=== PATIENT | female | born 1930 | race Caucasian/White ===

== ENCOUNTER 2020-07-06 06:38 | Inpatient (IN) | payer OTHER, BC ==
[2020-07-06 06:58] VITALS: BMI 16.9
[2020-07-06] MEDS ORDERED: SODIUM CHLORIDE 500 ML IV STA ×2 (07:29→09:17)
[2020-07-06 08:10] LABS: BASO % 0.1 % (0-2.0); HEMATOCRIT 22.2 % (32.4-45.2); LYMPH % 1.5 % (8-40); MCH 27.1 pg (25.7-33.7); MEAN CELL VOLUME 93.4 fl (80-96); MEAN PLT VOLUME 8.7 fl (7.5-11.1); MONO % 5.6 % (3.8-10.2); NEUT % 92.8 % (42.8-82.8); PLATELET COUNT 324 K/MM3 (134-434); RBC 2.38 M/mm3 (3.60-5.2); RDW 19.7 % (11.6-15.6)
[2020-07-06 08:29] LABS: HEMOGLOBIN 6.4 GM/dL (10.7-15.3)
[2020-07-06 08:33] LABS: INR 0.97 (0.83-1.09); PROTHROMBIN TIME (PATIENT) 11.4 SEC (9.7-13.0)
--- NOTE | 2020-07-06 08:34 | PDOC ---
Documentation entered by Nilda Carlton SCRIBE, acting as scribe for Unruly Hopkins MD. Unruly Hopkins MD: This documentation has been prepared by the Brandt ceja Brenda, SCRIBE, under my direction and personally reviewed by me in its entirety. I confirm that the documentation accurately reflects all work, treatment, procedures, and medical decision making performed by me. History of Present Illness - General Chief Complaint: Shortness of Breath Stated Complaint: DIFFICULTY BREATHING History Source: Patient Exam Limitations: No Limitations - History of Present Illness Initial Comments: 07/06/20 07:16 The patient is an 89 year old female with a significant PMH of CAD, h/x NSTEMI, anemia, asthma, COPD, HLD and HTN who presents to the emergency department for evaluation of difficulty breathing per senior living. Per EMS patient was satting 89% on room air. The patient denies pain, chest pain, headache and dizziness. Denies fever, chills, nausea, vomiting, diarrhea and constipation. Denies dysuria, frequency, urgency and hematuria. Allergies: NKA Social history: No reported hx of tobacco use, alcohol use or illicit drug use. PCP: Cesario Stauffer Past History - Medical History Allergies/Adverse Reactions: Allergies Allergy/AdvReac Type Severity Reaction Status Date / Time No Known Allergies Allergy Verified 07/06/20 06:50 Home Medications: Ambulatory Orders Albuterol 0.083% Nebulizer Nandini [Ventolin 0.083%] 1 neb NEB Q4H PRN 04/25/20 Ascorbic Acid 500 mg PO DAILY 04/25/20 Aspirin [ASA -] 81 mg PO DAILY 04/25/20 Atorvastatin Calcium 40 mg PO DAILY 04/25/20 Cholecalciferol (Vitamin D3) [Vitamin D3] 1,000 unit PO DAILY 04/25/20 Clopidogrel Bisulfate [Clopidogrel] 75 mg PO DAILY 04/25/20 Furosemide [Lasix -] 10 mg PO DAILY 04/25/20 Lisinopril 20 mg PO DAILY 04/25/20 Loratadine 10 mg PO DAILY PRN 04/25/20 Potassium Chloride 10 meq PO DAILY 04/25/20 Sertraline HCl [Zoloft] 75 mg PO DAILY 04/25/20 Albuterol Sulfate Inhaler - [Ventolin HFA Inhaler -] 1 - 2 inh PO Q4H #1 inhaler 05/04/20 Budesonide/Formeterol Fumarate [SYMBICORT 160/4.5mcg -] 1 inh PO BID #1 cannister 05/04/20 Ferrous Sulfate [Feosol] 325 mg PO BID #60 tablet 05/04/20 Metoprolol Succinate [Toprol Xl] 25 mg PO DAILY #30 tab.er.24h 05/04/20 Prednisone See Taper PO DAILY #20 tablet 05/04/20 Anemia: Yes Asthma: Yes Cardiac Disorders: Yes (CAD, h/x NSTEMI) COPD: Yes Dementia: Yes HTN: Yes Hypercholesterolemia: Yes Psychiatric Problems: Yes - Immunization History Td Vaccination: Yes TDAP Vaccination: Yes Immunization Up to Date: Yes - Psycho-Social/Smoking History Smoking History: Unknown if ever smoked Have you smoked in the past 12 months: No Information on smoking cessation initiated: No Review of Systems - Review of Systems Able to Perform ROS?: Yes Comments:: 07/06/20 07:30 CONSTITUTIONAL: No fever, no chills, no fatigue EYES: No visual changes ENT: No ear pain, no sore throat CARDIOVASCULAR: No chest pain, no palpitations RESPIRATORY: No cough, no SOB GI: No abdominal pain, no nausea, no vomiting, no constipation, no diarrhea GENITOURINARY: No dysuria, no frequency, no hematuria MUSKULOSKELETAL: No backpain, no joint pain, no myalgias SKIN: No rash NEURO: No headache *Physical Exam - Vital Signs Last Vital Signs Temp Pulse Resp BP Pulse Ox 99.2 F 107 H 24 H 112/62 100 07/06/20 06:42 07/06/20 06:42 07/06/20 06:42 07/06/20 06:42 07/06/20 06:42 - Physical Exam 07/06/20 07:28 CONSTITUTIONAL: Awake and alert, frail-appearing, follows commands, mildly tachypneic HEAD: Normocephalic; atraumatic EYES: PERRL; EOM intact, Conjunctiva pale ENMT: External appears normal; mm-dry NECK: Supple; non-tender; no cervical lymphadenopathy CARD: Normal S1, S2; 2/6 se murmurs, no rubs, or gallops RESP: Tachypneic, Normal chest excursion with respiration; Decreased breath sounds and rhonchi bilaterally, more pronounced on the right; ABD: Soft, non-distended; non-tender; no palpable organomegaly, no palpable hernias EXT: No edema, lower extremities in flexion contraction, superficial hematoma to the dorsum of the left foot; distal pulses intact SKIN: Warm, dry, no rash NEURO: AOx1. Moving upper extremities symmetrically, follows commands Heart Score/ECG Review - ECG Impressions Comment:: 07/06/20 07:31 Rate: 104 bpm Sinus Tachycardia Marked ST abnormality, possible anterolateral subendocardial injury Abnormal ECG ED Treatment Course - LABORATORY CBC & Chemistry Diagram: 07/06/20 07:30 07/06/20 07:30 Medical Decision Making - Medical Decision Making 07/06/20 08:32 Patient is a frail-appearing 89-year-old female with multiple comorbidities who presents from [facility] for difficulty breathing and hypothermia. In the ER, patient is awake and alert, mildly tachypneic, nontoxic-appearing, with oxygen saturation on room air of 88%, improving to 100 on 10 L via nonrebreather. Decreased breath sounds and rhonchi noted bilaterally, more pronounced on the right. I suspect pneumonia. COVID 19 is also in the differential. Differential diagnosis also includes acute exacerbation of CHF versus COPD. I am unable to administer nebulizer therapy at this time due to risk of COVID-19 aerosolization. Patient does not appear coordinated enough to benefit from albuterol MDI at this time. Will obtain CBC/CMP/blood cultures/lactic acid/chest x-ray. Will administer IV fluids and broad-spectrum antibiotics for nosocomial pneumonia. Will obtain COVID swab. Likely admission. 07/06/20 09:09 Patient reassessed. On 6 L via nasal cannula, patient's O2 saturation is noted to be 94%. CBC reveals leukocytosis of 27,000 with moderate anemia with hemoglobin of 6. Will obtain type and screen. Patient CMP reveals troponin of 1.8. Will consider transfusing 1 unit of packed cells. IV vancomycin and Zosyn have been prescribed. COVID testing is pending. I attempted to contact patient's son, Angelo Cage at both phones listed. Voice message was left. 07/06/20 09:18 Patient is a DNR/DNI. 07/06/20 10:10 Patient resting comfortably. Last blood pressure noted to be 98/51. 07/06/20 10:20 I was able to contact patient's son, Mr. Angelo Cage. He gave verbal consent over the telephone for transfusion of packed cells. He also confirmed DNR/DNI. Will transfuse 2 units. Discharge - Discharge Information Problems reviewed: Yes Clinical Impression/Diagnosis: Pneumonia Qualifiers: Pneumonia type: due to unspecified organism Laterality: bilateral Lung location: unspecified part of lung Qualified Code(s): J18.9 - Pneumonia, unsp ecified organism Anemia Qualifiers: Anemia type: unspecified type Qualified Code(s): D64.9 - Anemia, unspecified Altered mental status Qualifiers: Altered mental status type: unspecified Qualified Code(s): R41.82 - Altered mental status, unspecified Condition: Fair - Admission Yes - Follow up/Referral Referrals: Eh Nassar MD [Primary Care Provider] - - Patient Discharge Instructions - Post Discharge Activity
[2020-07-06 08:36] LABS: ACTIVATED PTT 24.8 SECONDS (25.2-36.5)
[2020-07-06 08:38] LABS: ALBUMIN 2.7 g/dl (3.4-5.0); BILIRUBIN,TOTAL 0.2 mg/dL (0.2-1); BLOOD UREA NITROGEN 16.3 mg/dL (7-18); POTASSIUM 4.7 mmol/L (3.5-5.1); TOT PROT 5.6 g/dl (6.4-8.2)
[2020-07-06] MEDS ORDERED: PIPERACILLIN/TAZOB 3.375 GM 3.375 GM in DEXTROSE 5%-WATER - 50 ML IVPB ONE (08:48)
[2020-07-06] MEDS ORDERED: VANCOMYCIN 1 GM in D5W (PRE-DOCKED) 1,000 MG/250 ML IVPB ONE (08:49)
[2020-07-06] MEDS ORDERED: VANCOMYCIN 1 GRAM (PRE-DOCKED) 1,000 MG/250 ML BAG IVPB ONE (08:53)
[2020-07-06] MEDS ORDERED: PIPERACILLIN/TAZOB 3.375 GM 3.375 GM/50 ML BAG IVPB ONE (08:53)
[2020-07-06 09:31] LABS: ARTERIAL BLD GAS O2 SATURATION 99.1 mmHg (95-98); ARTERIAL BLOOD GAS BASE EXCESS -4.2 mmol/L (-2-2); ARTERIAL BLOOD GAS PO2 174.9 mmHg (80-100); ARTERIAL BLOOD GAS pH 7.355 (7.350-7.450)
[2020-07-06 09:37] LABS: ALLENS TEST POSITIVE
--- NOTE | 2020-07-06 09:47 | PN ---
Teaching Attending Note Name of Resident: Ashley Menjivar ATTENDING PHYSICIAN STATEMENT I saw and evaluated the patient. I reviewed the resident's note and discussed the case with the resident. I agree with the resident's findings and plan as documented. SUBJECTIVE: OBJECTIVE: Vital Signs Temperature 99.2 F 07/06/20 06:42 Pulse Rate 94 H 07/06/20 09:00 Respiratory Rate 19 07/06/20 09:00 Blood Pressure 90/47 L 07/06/20 09:00 O2 Sat by Pulse Oximetry (%) 98 07/06/20 09:00 General: Elderly woman, HEENT mucous membranes moist, no anemia, no jaundice, PERRLA, no nystagmus Neck: No JVD, supple, no bruit, thyroid palpably normal, normal carotid pulsations. Chest: Nontender, CVS: S1-S2 regular no murmur/gallop/rub Abdomen: Nondistended, soft, bowel sounds present. Extremities: No edema., No Calf tenderness, pulses present SENIOR LABEL SPECIALIST: CBC,CMP WBC 27.0 K/mm3 (4.0-10.0) H 07/06/20 07:30 RBC 2.38 M/mm3 (3.60-5.2) L 07/06/20 07:30 Hgb 6.4 GM/dL (10.7-15.3) L* 07/06/20 07:30 Hct 22.2 % (32.4-45.2) L D 07/06/20 07:30 MCV 93.4 fl (80-96) D 07/06/20 07:30 MCH 27.1 pg (25.7-33.7) 07/06/20 07:30 MCHC 29.0 g/dl (32.0-36.0) L 07/06/20 07:30 RDW 19.7 % (11.6-15.6) H 07/06/20 07:30 Plt Count 324 K/MM3 (134-434) D 07/06/20 07:30 MPV 8.7 fl (7.5-11.1) 07/06/20 07:30 Absolute Neuts (auto) 25.0 K/mm3 (1.5-8.0) H 07/06/20 07:30 Neutrophils % 92.8 % (42.8-82.8) H 07/06/20 07:30 Lymphocytes % 1.5 % (8-40) L D 07/06/20 07:30 Monocytes % 5.6 % (3.8-10.2) 07/06/20 07:30 Eosinophils % 0.0 % (0-4.5) 07/06/20 07:30 Basophils % 0.1 % (0-2.0) 07/06/20 07:30 Nucleated RBC % 0 % (0-0) 07/06/20 07:30 Sodium 141 mmol/L (136-145) 07/06/20 07:30 Potassium 4.7 mmol/L (3.5-5.1) 07/06/20 07:30 Chloride 109 mmol/L (98-107) H 07/06/20 07:30 Carbon Dioxide 21 mmol/L (21-32) 07/06/20 07:30 Anion Gap 11 MMOL/L (8-16) 07/06/20 07:30 BUN 16.3 mg/dL (7-18) 07/06/20 07:30 Creatinine 1.0 mg/dL (0.55-1.3) 07/06/20 07:30 Est GFR (CKD-EPI)AfAm 57.84 07/06/20 07:30 Est GFR (CKD-EPI)NonAf 49.91 07/06/20 07:30 Random Glucose 197 mg/dL (74-106) H 07/06/20 07:30 Lactic Acid 3.9 mmol/L (0.4-2.0) H* 07/06/20 07:30 Calcium 8.0 mg/dL (8.5-10.1) L 07/06/20 07:30 Ferritin 35.3 ng/ml (8-388) 07/06/20 07:30 Total Bilirubin 0.2 mg/dL (0.2-1) 07/06/20 07:30 AST 32 U/L (15-37) 07/06/20 07:30 ALT 36 U/L (13-61) 07/06/20 07:30 Alkaline Phosphatase 79 U/L (45-117) 07/06/20 07:30 LD Total 460 U/L (84-246) H 07/06/20 07:30 Troponin I 1.87 ng/ml (0.00-0.05) H* 07/06/20 07:30 C-Reactive Protein 1.3 MG/DL (0.00-0.3) H 07/06/20 07:30 Total Protein 5.6 g/dl (6.4-8.2) L 07/06/20 07:30 Albumin 2.7 g/dl (3.4-5.0) L 07/06/20 07:30 EKG: Chest x-ray: Bilateral infiltrate and pulmonary congestion ASSESSMENT AND PLAN: 89-year-old female [facility] resident, DNR/DNI, bedbound, recently discharged from [facility] almost a month ago after treated for aspiration pneumonia sepsis, non-ST elevation myocardial infarction and severe anemia requiring blood transfusion also, history of CAD, COPD on home O2, asthma, hypertension dyslipidemia dementia , wheelchair-bound, transferred from [facility] for evaluation of hypoxia, patient is unable to provide much information as per [facility] information patient O2 sats dropped to 66% improved NRB, on arrival O2 sat recorded 88% , work-up shows elevated white blood cell count 27k, pulmonary infiltrate, elevated lactic acid, severe anemia hemoglobin 6.4/22.2 admitted for further management. Impression: Hypoxic respiratory failure due to pneumonia Healthcare associated pneumonia with sepsis Severe symptomatic anemia Elevated troponin I Problem List - Problems (1) Sepsis due to pneumonia Assessment/Plan: Patient presented with elevated WBC, elevated lactic acid, bilateral infiltrate, [facility] resident recently discharged from the hospital later today hospital-acquired pneumonia continue Zosyn and vancomycin, ID consult, follow-up blood culture and sputum culture. Problems reviewed: Yes Code(s): J18.9 - PNEUMONIA, UNSPECIFIED ORGANISM; A41.9 - SEPSIS, UNSPECIFIED ORGANISM (2) COPD (chronic obstructive pulmonary disease) Assessment/Plan: History of COPD continue DuoNeb, O2 inhalation target O2 sat around 90% will consider pulmonary consult if indicated Problems reviewed: Yes Code(s): J44.9 - CHRONIC OBSTRUCTIVE PULMONARY DISEASE, UNSPECIFIED Qualifiers: (3) Anemia, iron deficiency Assessment/Plan: Patient is history of iron deficiency anemia, during previous hospitalization family refused any further work-up, on PPI, considering normocytic anemia we will follow-up thiamine folic acid and hematology consult, consider IV iron infusion Problems reviewed: Yes Code(s): D50.9 - IRON DEFICIENCY ANEMIA, UNSPECIFIED (4) Respiratory failure Assessment/Plan: Hypoxic respiratory failure due to pneumonia/CHF exacerbation, continue IV hydration follow-up BNP level target of the second 90 to 92% Problems reviewed: Yes Code(s): J96.90 - RESPIRATORY FAILURE, UNSP, UNSP W HYPOXIA OR HYPERCAPNIA (5) NSTEMI (non-ST elevated myocardial infarction) Assessment/Plan: History of CAD elevated troponin I, EKG shows sinus tachycardia and ST change in the inferior lateral leads, follow-up troponin most likely demand ischemia continue beta-rex O2 inhalation optimize anemia hemoglobin target more than 8 g% Problems reviewed: Yes Code(s): I21.4 - NON-ST ELEVATION (NSTEMI) MYOCARDIAL INFARCTION (6) HTN (hypertension) Assessment/Plan: Well-controlled resume home medication Problems reviewed: Yes Code(s): I10 - ESSENTIAL (PRIMARY) HYPERTENSION Qualifiers: Hypertension type: essential hypertension Qualified Code(s): I10 - Essential (primary) hypertension
[2020-07-06 10:14] LABS: PH,URINE 5.5 (5.0-8.0); URINE APPEARANCE Slightly Cloudy; URINE BILIRUBIN Negative (NEGATIVE); URINE COLOR Yellow; URINE GLUCOSE (UA) Negative (NEGATIVE); URINE KETONE Negative (NEGATIVE); URINE LEUK ESTERASE Negative (NEGATIVE); URINE NITRITE Negative (NEGATIVE); URINE PROTEIN 2+ (NEGATIVE); URINE UROBILINOGEN 0.2 mg/dL (0.2-1.0)
[2020-07-06] MEDS ORDERED: methylPREDNISolone NA SUCC 40 MG/1 ML VIAL IVPUSH ONE (10:22)
--- NOTE | 2020-07-06 10:39 | HP ---
CHIEF COMPLAINT: Hypoxia PCP: HISTORY OF PRESENT ILLNESS: 89 y/o F PMHx CAD (s/p NSTEMI), COPD (on 2L Home O2), Asthma, HTN, HLD, Depression, Insomnia, Dementia presents from [facility] with difficulty breathing. Patient is arousable to verbal stimuli, Alert and oriented to self only however she is pleasantly confused. Case was discussed with [facility] Staff (Crystal GRACIA who was not the overnight nurse but received report ont he patient) who says the staff found the patient to have an O2 sat of 66% and in Respiratory distress. They attempted to give her Nebulizer tx x 2 and supplemental oxygen (unknown if NC, Venti mask or NRB) and reached a saturaiton of 88% however patient remained in respiratory distress prompting visit to [facility]. [facility] Staff denies any recent complaints of fevers, chills, diarrhea, nausea, vomiting. They additionall mention she has been tolerating PO intake without significant dylan changes. HCP: Angelo Case (Son [phone], ) ER course was notable for: (1) NS 1L (2) Vanco/Zosyn (3) Recent Travel: PAST MEDICAL HISTORY: As per HPI PAST SURGICAL HISTORY: Unknown by [facility] Staff Social History: Smoking: Unknown by [facility] Staff Alcohol: Unknown by [facility] Staff Drugs: Unknown by [facility] Staff Occupation: Unknown by [facility] Staff Ambulation: Bedbound Residence: [facility] Allergies No Known Allergies Allergy (Verified 07/06/20 06:50) HOME MEDICATIONS: Home Medications Medication Instructions Recorded Albuterol 0.083% Nebulizer Nandini 1 neb NEB Q4H PRN 04/25/20 [Ventolin 0.083%] Ascorbic Acid 500 mg PO DAILY 04/25/20 Aspirin [ASA -] 81 mg PO DAILY 04/25/20 Atorvastatin Calcium 40 mg PO DAILY 04/25/20 Cholecalciferol (Vitamin D3) 1,000 unit PO DAILY 04/25/20 [Vitamin D3] Clopidogrel Bisulfate [Clopidogrel] 75 mg PO DAILY 04/25/20 Furosemide [Lasix -] 10 mg PO DAILY 04/25/20 Lisinopril 20 mg PO DAILY 04/25/20 Loratadine 10 mg PO DAILY PRN 04/25/20 Potassium Chloride 10 meq PO DAILY 04/25/20 Sertraline HCl [Zoloft] 75 mg PO DAILY 04/25/20 Albuterol Sulfate Inhaler - 1 - 2 inh PO Q4H #1 inhaler 05/04/20 [Ventolin HFA Inhaler -] Budesonide/Formeterol Fumarate 1 inh PO BID #1 cannister 05/04/20 [SYMBICORT 160/4.5mcg -] Ferrous Sulfate [Feosol] 325 mg PO BID #60 tablet 05/04/20 Metoprolol Succinate [Toprol Xl] 25 mg PO DAILY #30 tab.er.24h 05/04/20 Prednisone See Taper PO DAILY #20 tablet 05/04/20 REVIEW OF SYSTEMS Unable to obtain as patient is confused PHYSICAL EXAMINATION Vital Signs - 24 hr 07/06/20 07/06/20 07/06/20 06:42 07:05 08:00 Temperature 99.2 F Pulse Rate 107 H 103 H Pulse Rate [ 113 H Left Radial] Respiratory 24 H 20 Rate Blood Pressure 112/62 Blood Pressure 110/61 [Right Arm] O2 Sat by Pulse 100 99 92 L Oximetry (%) 07/06/20 07/06/20 09:00 10:13 Temperature Pulse Rate Pulse Rate [ 94 H 93 H Left Radial] Respiratory 19 20 Rate Blood Pressure Blood Pressure 90/47 L 96/51 L [Right Arm] O2 Sat by Pulse 98 100 Oximetry (%) GENERAL: Frail, Nontoxic appearing, NAD HEAD: NCAT EYES: PERRL ENT: Moist mucous membranes, Poor dentition NECK: No JVD LUNGS: Diminished breath sounds at the bases, Poor inspiratory effort HEART: RRR, S1 S2 ABDOMEN: Soft, nontender, not distended, + bowel sounds, no guarding, no rebound EXTREMITIES: No peripheral edema. NEUROLOGICAL: A&Ox1 to self only, Not agitated at this time but lethargic and arousable to verbal and painful stimuli, follows some commands, PSYCHIATRIC: Confused SKIN: Warm, dry however with multiple ecchymosis throughout, most prominent over the left foot, No sacral decubitus ulcers noted RECTAL: Stool in the vault, Good sphincter tone, Large External Hemmorrhoid visualized, No internal hemmorrhoids felt, No active bleeding noted, No blood however dark brown stool on the tip of the glove Laboratory Last Values WBC 27.0 K/mm3 (4.0-10.0) H 07/06/20 07:30 RBC 2.38 M/mm3 (3.60-5.2) L 07/06/20 07:30 Hgb 6.4 GM/dL (10.7-15.3) L* 07/06/20 07:30 Hct 22.2 % (32.4-45.2) L D 07/06/20 07:30 MCV 93.4 fl (80-96) D 07/06/20 07:30 MCH 27.1 pg (25.7-33.7) 07/06/20 07:30 MCHC 29.0 g/dl (32.0-36.0) L 07/06/20 07:30 RDW 19.7 % (11.6-15.6) H 07/06/20 07:30 Plt Count 324 K/MM3 (134-434) D 07/06/20 07:30 MPV 8.7 fl (7.5-11.1) 07/06/20 07:30 Absolute Neuts (auto) 25.0 K/mm3 (1.5-8.0) H 07/06/20 07:30 Neutrophils % 92.8 % (42.8-82.8) H 07/06/20 07:30 Lymphocytes % 1.5 % (8-40) L D 07/06/20 07:30 Monocytes % 5.6 % (3.8-10.2) 07/06/20 07:30 Eosinophils % 0.0 % (0-4.5) 07/06/20 07:30 Basophils % 0.1 % (0-2.0) 07/06/20 07:30 Nucleated RBC % 0 % (0-0) 07/06/20 07:30 PT with INR 11.40 SEC (9.7-13.0) 07/06/20 07:30 INR 0.97 (0.83-1.09) 07/06/20 07:30 PTT (Actin FS) 24.8 SECONDS (25.2-36.5) L 07/06/20 07:30 Anticoagulation Therapy No Result Required. 07/06/20 08:00 Puncture Site Left radial 07/06/20 08:00 Patient Temperature No Result Required. 07/06/20 08:00 ABG pH 7.355 (7.350-7.450) 07/06/20 08:00 ABG pCO2 38.40 mmHg (35-45) 07/06/20 08:00 ABG pO2 174.9 mmHg (80-100) H 07/06/20 08:00 ABG HCO3 21.0 mmol/L (22-27) L 07/06/20 08:00 ABG O2 Sat (Measured) 99.1 mmHg (95-98) H 07/06/20 08:00 ABG O2 Content No Result Required. 07/06/20 08:00 ABG Base Excess -4.2 mmol/L (-2-2) L 07/06/20 08:00 Ganga Test Positive 07/06/20 08:00 Patient On Oxygen Yes 07/06/20 08:00 O2 Delivery Device N/c 07/06/20 08:00 Oxygen Flow Rate 6 07/06/20 08:00 Vent Mode No Result Required. 07/06/20 08:00 Vent Rate No Result Required. 07/06/20 08:00 Mechanical Rate No Result Required. 07/06/20 08:00 PEEP No Result Required. 07/06/20 08:00 Pressure Support Vent No Result Required. 07/06/20 08:00 Sodium 141 mmol/L (136-145) 07/06/20 07:30 Potassium 4.7 mmol/L (3.5-5.1) 07/06/20 07:30 Chloride 109 mmol/L (98-107) H 07/06/20 07:30 Carbon Dioxide 21 mmol/L (21-32) 07/06/20 07:30 Anion Gap 11 MMOL/L (8-16) 07/06/20 07:30 BUN 16.3 mg/dL (7-18) 07/06/20 07:30 Creatinine 1.0 mg/dL (0.55-1.3) 07/06/20 07:30 Est GFR (CKD-EPI)AfAm 57.84 07/06/20 07:30 Est GFR (CKD-EPI)NonAf 49.91 07/06/20 07:30 Random Glucose 197 mg/dL (74-106) H 07/06/20 07:30 Lactic Acid 3.9 mmol/L (0.4-2.0) H* 07/06/20 07:30 Calcium 8.0 mg/dL (8.5-10.1) L 07/06/20 07:30 Ferritin 35.3 ng/ml (8-388) 07/06/20 07:30 Total Bilirubin 0.2 mg/dL (0.2-1) 07/06/20 07:30 AST 32 U/L (15-37) 07/06/20 07:30 ALT 36 U/L (13-61) 07/06/20 07:30 Alkaline Phosphatase 79 U/L (45-117) 07/06/20 07:30 LD Total 460 U/L (84-246) H 07/06/20 07:30 Troponin I 1.87 ng/ml (0.00-0.05) H* 07/06/20 07:30 C-Reactive Protein 1.3 MG/DL (0.00-0.3) H 07/06/20 07:30 Total Protein 5.6 g/dl (6.4-8.2) L 07/06/20 07:30 Albumin 2.7 g/dl (3.4-5.0) L 07/06/20 07:30 Urine Color Yellow 07/06/20 07:55 Urine Appearance Slightly cloudy 07/06/20 07:55 Urine pH 5.5 (5.0-8.0) 07/06/20 07:55 Ur Specific [place] 1.025 (1.010-1.035) 07/06/20 07:55 Urine Protein 2+ (NEGATIVE) H 07/06/20 07:55 Urine Glucose (UA) Negative (NEGATIVE) 07/06/20 07:55 Urine Ketones Negative (NEGATIVE) 07/06/20 07:55 Urine Blood Negative (NEGATIVE) 07/06/20 07:55 Urine Nitrite Negative (NEGATIVE) 07/06/20 07:55 Urine Bilirubin Negative (NEGATIVE) 07/06/20 07:55 Urine Urobilinogen 0.2 mg/dL (0.2-1.0) 07/06/20 07:55 Ur Leukocyte Esterase Negative (NEGATIVE) 07/06/20 07:55 Blood Type A POSITIVE 07/06/20 08:55 Antibody Screen Negative 07/06/20 08:55 Crossmatch See Detail 07/06/20 08:55 Active Medications Albuterol Sulfate (Ventolin 0.083% Nebulizer Soln -) 1 amp NEB Q4H ILEANA Albuterol Sulfate (Ventolin Hfa Inhaler -) 1 - 2 puff IH Q4H ILEANA Ascorbic Acid (Vitamin C -) 500 mg PO DAILY ILEANA Atorvastatin Calcium (Lipitor -) 40 mg PO DAILY ILEANA Budesonide/Formoterol Fumarate (Symbicort 160/4.5mcg -) 1 puff IH BID ILEANA Sodium Chloride (Normal Saline -) 1,000 mls @ 75 mls/hr IV ASDIR ILEANA Piperacillin Sod/Tazobactam (Sod 3.375 gm/ Dextrose) 50 mls @ 100 mls/hr IVPB Q8H-IV ILEANA; Protocol Piperacillin Sod/Tazobactam (Sod 3.375 gm/ Dextrose) 50 mls @ 100 mls/hr IVPB Q8H-IV ILEANA Stop: 07/07/20 10:29 Loratadine (Claritin -) 10 mg PO DAILY PRN PRN Reason: ALLERGIES Multivitamins/Minerals/Vitamin C (Tab-A-Vit -) 1 tab PO DAILY ILEANA Non-Formulary Medication (Ferrous Sulfate [Feosol]) 325 mg PO DAILY ILEANA Non-Formulary Medication (Potassium Chloride [Potassium Chloride]) 10 meq PO DAILY ILEANA Non-Formulary Medication (Cholecalciferol (Vitamin D3) [Vitamin D3]) 1,000 unit PO DAILY ILEANA Sertraline HCl (Zoloft -) 75 mg PO DAILY ILEANA Vancomycin HCl (Vancomycin (Pre-Docked)) 1,000 mg IVPB DAILY ILEANA; Protocol Vancomycin HCl (Vancomycin (Pre-Docked)) 1,000 mg IVPB ONCE ONE Stop: 07/07/20 10:01 ASSESSMENT/PLAN: 89 y/o F PMHx CAD (s/p NSTEMI), COPD (on 2L Home O2), Asthma, HTN, HLD, Depression, Insomnia, Dementia presents from [facility] with difficulty breathing. #Sepsis -HR 107, RR 24, WBC 27 likely due to CAP vs Aspiration PNA -CXR: Bilateral infiltrates. Some congestive changes. -qSOFA (atleast 2, Unclear if AMS given dementia at baseline), PSI Score 99 (Risk class IV, 8.2-9.3% Mortality) -Follow covid serology, Blood Cx, Urine Cx -Check Sputum Cx, Urine Legionella/Pneumoniae Ag -Given 1L in ED; Continue IV Hydration -Trend Lactic -ID (Dr. Lemons) consulted -Continue broad spectrum ABx (Vanco, Zosyn) given [facility] Resident #Acute Hypoxic Respiratory failure -Uses O2 PRN at baseline for COPD however found to have sats of 66% on RA and 88% on supplemental O2 at [facility]; Sats 95% on nasal canulla in ED -In the setting of PNA found on CXR with known hx of COPD, Asthma -Elevated CRP, LDH likely acute phase reactants however must follow covid serology -Supplemental O2 to maintain SpO2 >92%; Currently on NC -Resume Home dose bronchodilators #?AMS -Likely due to Sepsis in the setting of underlying Dementia -Labwork does not reveal Acidosis or CO2 Retention, Uremia, or other metabolic derraingements -Will consider Head CT if above workup does not reveal source #Elevated Troponin I -Likely demand ischemia due to Sepsis vs Anemia in the setting of hx of CAD (s/p NSTEMI) -EKG reveals Sinus Tachycardia, VR 104, QTc 470 -Trend Trops, EKG -Hold Antiplatelet agent for now given concerns for bleeding #Normocytic Anemia -Possibly Acute blood loss anemia due to Large External Hemorrhoid found on EMILI -Check FOBT, Iron studies: FE, TIBC, Ferritin, Transferrin, Folic Acid, Retic count, B12 -Transfuse to keep > 8.0 (CAD hx) -Heme consult -Will consider GI Evaluation and starting PPI pending above workup #Severe Protein-Calorie Malnutrition -As demonstrated by Low BMI, Loss of muscle mass, Low albumin -Dietary Consult -Supplemental Nutrition -MVI #HTN -Hold home dose antihypertensives given concerns for Sepsis and SBP < 100, Resume when clinically appropriate #HLD -Resume home dose Statin #Depression, Insomnia, ?Dementia -Resume home dose Sertraline #FEN -IV Hydration via NS @ 75 -Replete lytes PRN -Dysphagia diet with [place]-thick liquids, Ensure pudding once daily, Magic cup once daily #PPx -DVT: SCDs; Avoid Chemical AC in the setting of Anemia from possible GI Source Dispo: Monitor pulse ox and tenious BP on Tele Code Status: DNR/DNI however patient did not come with paperwork from [facility]; Requested they fax this over Visit type - Medication Review Med list reviewed for High Risk Meds patients 65 and older: Yes - Emergency Visit Emergency Visit: Yes ED Registration Date: 07/06/20 Care time: The patient presented to the Emergency Department on the above date and was hospitalized for further evaluation of their emergent condition. - New Patient This patient is new to me today: Yes Date on this admission: 07/07/20 - Critical Care Critical Care patient: No ATTENDING PHYSICIAN STATEMENT I saw and evaluated the patient. I reviewed the resident's note and discussed the case with the resident. I agree with the resident's findings and plan as documented. SUBJECTIVE: OBJECTIVE: ASSESSMENT AND PLAN:
[2020-07-06] MEDS ORDERED: methylPREDNISolone NA SUCC 40 MG/1 ML VIAL ONE (10:53)
[2020-07-06 11:00] LABS: ANISOCYTOSIS 2+; MACROCYTOSIS 1+; PLATELET ESTIMATE NORMAL; TEAR DROP CELLS 1+
[2020-07-06 11:57] LABS: MAGNESIUM 2.1 mg/dL (1.8-2.4); N-TERMINAL BNP 4237.9 pg/ml (5-450); PHOSPHOROUS 5.4 mg/dL (2.5-4.9)
[2020-07-06] MEDS ORDERED: LORATADINE 10 MG TABLET PO PRN (12:11)
[2020-07-06] MEDS ORDERED: ALBUTEROL SO4 0.083% IH SOL 2.5 MG/3 ML VIAL.NEB. NEB SCH (12:15)
[2020-07-06 12:19] LABS: RETICULOCYTES 5.84 % (0.5-1.5)
--- NOTE | 2020-07-06 13:13 | EKG ---
Test Reason : Blood Pressure : / mmHG Vent. Rate : 104 BPM Atrial Rate : 104 BPM P-R Int : 190 ms QRS Dur : 102 ms QT Int : 358 ms P-R-T Axes : 091 -09 098 degrees QTc Int : 470 ms POOR DATA QUALITY, INTERPRETATION MAY BE ADVERSELY AFFECTED SINUS TACHYCARDIA MARKED ST ABNORMALITY, POSSIBLE ANTEROLATERAL SUBENDOCARDIAL INJURY ABNORMAL ECG WHEN COMPARED WITH ECG OF 04-MAY-2020 10:46, PREMATURE ATRIAL COMPLEXES ARE NO LONGER PRESENT VENT. RATE HAS INCREASED BY [address] NOW DEPRESSED IN INFERIOR LEADS ST NOW DEPRESSED IN LATERAL LEADS Confirmed by MD JADE, FELECIA ([id number]) on 07/06/2020 1:12:50 PM Referred By: Confirmed By:FELECIA HANSEN MD
[2020-07-06] MEDS: SODIUM CHLORIDE 1,000 ML IV SCH (14:21)
[2020-07-06] MEDS: MULTIVITAMINS (DAILY MVI) TABLET (FP) PO SCH (14:22)
[2020-07-06] MEDS: ALBUTEROL SO4 HFA INHALER IH SCH ×3 (14:22→23:01)
--- NOTE | 2020-07-06 14:58 | CONSULT ---
Consultation: REQUESTING PROVIDER: Dr. Khanna CONSULT REQUEST: We have been asked to medically evaluate this patient for anemia. HISTORY OF PRESENT ILLNESS: Patient is an 89 year old female with past medical history of CAD, COPD (on 2L NC), Asthma, HTN, HLD, Depression, Insomnia, Dementia, was brought in the ED due to difficulty breathing and hypoxia for 1 day. On evaluation, patient was very somnolent, unable to provide HPI. History noted from patient's chart. It was reported that patient was found to be hypoxic with O2 sat of 66% this morning at the [place], and in respiratory distress. She was given nebulizers and supplemental oxygen, but still remain hypoxic and in distress, so patient was brought to the hospital. Patient looks comfortable in bed, sleeping, on 5L NC. She is arousable to touch and voice, but would get back to sleep. There was no reported fevers, chills, nausea, vomiting, diarrhea. No reported bloody urine or stools. At the ED, patient was found to be anemic with Hgb of 6.4 and leukocytosis, lactic acidosis of 3.9, elevated LDH, CRP and ferritin. FOBT negative. CXR done revealed bilateral interstitial infiltrates. PMHx:CAD, COPD (on 2L NC), Asthma, HTN, HLD, Depression, Insomnia, Dementia PSHx: unable to obtain Allergies: NKDA SHx: bedbound, from [facility] FHx: unable to obtain REVIEW OF SYSTEMS: Unable to obtain as patient is very somnolent, reports being tired, denies any pain. PHYSICAL EXAMINATION Vital Signs - 24 hr 07/06/20 07/06/20 07/06/20 06:42 07:05 08:00 Temperature 99.2 F Pulse Rate 107 H 103 H Pulse Rate [ 113 H Left Radial] Respiratory 24 H 20 Rate Blood Pressure 112/62 Blood Pressure 110/61 [Right Arm] O2 Sat by Pulse 100 99 92 L Oximetry (%) 07/06/20 07/06/20 07/06/20 09:00 10:13 12:56 Temperature Pulse Rate Pulse Rate [ 94 H 93 H 87 Left Radial] Respiratory 19 20 24 H Rate Blood Pressure Blood Pressure 90/47 L 96/51 L 119/62 [Right Arm] O2 Sat by Pulse 98 100 98 Oximetry (%) GENERAL: Somnolent, NAD, on 5L NC. EARS, NOSE, THROAT: Dry mucous membranes. NECK: Normal range of motion, supple LUNGS: decreased inspiratory effort, decreased breath sounds HEART: Regular rate and rhythm, normal S1 and S2 with systolic murmur ABDOMEN: Soft, does not grimace on palpation, not distended, normoactive bowel sounds LOWER EXTREMITIES: 2+ pulses, warm, well-perfused. No peripheral edema. SKIN: Warm, dry, normal turgor Laboratory Results - last 24 hr 07/06/20 07/06/20 07/06/20 07:30 07:30 07:30 WBC RBC Hgb Hct MCV MCH MCHC RDW Plt Count MPV Absolute Neuts (auto) Neutrophils % Neutrophils % (Manual) Band Neutrophils % Lymphocytes % Lymphocytes % (Manual) Monocytes % Monocytes % (Manual) Eosinophils % Eosinophils % (Manual) Basophils % Basophils % (Manual) Myelocytes % (Man) Promyelocytes % (Man) Blast Cells % (Manual) Nucleated RBC % Metamyelocytes Hypochromia Platelet Estimate Polychromasia Anisocytosis Microcytosis Macrocytosis Tear Drop Cells Retic Count PT with INR 11.40 INR 0.97 PTT (Actin FS) 24.8 L Anticoagulation Therapy Puncture Site Patient Temperature ABG pH ABG pCO2 ABG pO2 ABG HCO3 ABG O2 Sat (Measured) ABG O2 Content ABG Base Excess Ganga Test Patient On Oxygen O2 Delivery Device Oxygen Flow Rate Vent Mode Vent Rate Mechanical Rate PEEP Pressure Support Vent Sodium 141 Potassium 4.7 Chloride 109 H Carbon Dioxide 21 Anion Gap 11 BUN 16.3 Creatinine 1.0 Est GFR (CKD-EPI)AfAm 57.84 Est GFR (CKD-EPI)NonAf 49.91 Random Glucose 197 H Lactic Acid Calcium 8.0 L Phosphorus 5.4 H Magnesium 2.1 Iron 19 L TIBC 320 Iron Saturation 5 L Unsaturated IBC 301 H Ferritin 36.5 35.3 Total Bilirubin 0.2 AST 32 ALT 36 Alkaline Phosphatase 79 LD Total 460 H Troponin I 1.87 H* C-Reactive Protein 1.3 H B-Natriuretic Peptide 4237.9 H Total Protein 5.6 L Albumin 2.7 L Vitamin B12 1345 H Serum Folate 20 H Urine Color Urine Appearance Urine pH Ur Specific [place] Urine Protein Urine Glucose (UA) Urine Ketones Urine Blood Urine Nitrite Urine Bilirubin Urine Urobilinogen Ur Leukocyte Esterase Stool Occult Blood Blood Type Antibody Screen Crossmatch 07/06/20 07/06/20 07/06/20 07:30 07:30 07:55 WBC 27.0 H RBC 2.38 L Hgb 6.4 L* Hct 22.2 L D MCV 93.4 D MCH 27.1 MCHC 29.0 L RDW 19.7 H Plt Count 324 D MPV 8.7 Absolute Neuts (auto) 25.0 H Neutrophils % 92.8 H Neutrophils % (Manual) 90.1 H Band Neutrophils % 3.0 Lymphocytes % 1.5 L D Lymphocytes % (Manual) 3.9 L Monocytes % 5.6 Monocytes % (Manual) 3 L Eosinophils % 0.0 Eosinophils % (Manual) 0.0 Basophils % 0.1 Basophils % (Manual) 0.0 Myelocytes % (Man) 0 Promyelocytes % (Man) 0 Blast Cells % (Manual) 0 Nucleated RBC % 0 Metamyelocytes 0 Hypochromia 2+ Platelet Estimate Normal Polychromasia 2+ Anisocytosis 2+ Microcytosis 1+ Macrocytosis 1+ Tear Drop Cells 1+ Retic Count 5.84 H PT with INR INR PTT (Actin FS) Anticoagulation Therapy Puncture Site Patient Temperature ABG pH ABG pCO2 ABG pO2 ABG HCO3 ABG O2 Sat (Measured) ABG O2 Content ABG Base Excess Ganga Test Patient On Oxygen O2 Delivery Device Oxygen Flow Rate Vent Mode Vent Rate Mechanical Rate PEEP Pressure Support Vent Sodium Potassium Chloride Carbon Dioxide Anion Gap BUN Creatinine Est GFR (CKD-EPI)AfAm Est GFR (CKD-EPI)NonAf Random Glucose Lactic Acid 3.9 H* Calcium Phosphorus Magnesium Iron TIBC Iron Saturation Unsaturated IBC Ferritin Total Bilirubin AST ALT Alkaline Phosphatase LD Total Troponin I C-Reactive Protein B-Natriuretic Peptide Total Protein Albumin Vitamin B12 Serum Folate Urine Color Yellow Urine Appearance Slightly cloudy Urine pH 5.5 Ur Specific [place] 1.025 Urine Protein 2+ H Urine Glucose (UA) Negative Urine Ketones Negative Urine Blood Negative Urine Nitrite Negative Urine Bilirubin Negative Urine Urobilinogen 0.2 Ur Leukocyte Esterase Negative Stool Occult Blood Blood Type Antibody Screen Crossmatch 07/06/20 07/06/20 07/06/20 08:00 08:55 10:00 WBC RBC Hgb Hct MCV MCH MCHC RDW Plt Count MPV Absolute Neuts (auto) Neutrophils % Neutrophils % (Manual) Band Neutrophils % Lymphocytes % Lymphocytes % (Manual) Monocytes % Monocytes % (Manual) Eosinophils % Eosinophils % (Manual) Basophils % Basophils % (Manual) Myelocytes % (Man) Promyelocytes % (Man) Blast Cells % (Manual) Nucleated RBC % Metamyelocytes Hypochromia Platelet Estimate Polychromasia Anisocytosis Microcytosis Macrocytosis Tear Drop Cells Retic Count PT with INR INR PTT (Actin FS) Anticoagulation Therapy No Result Required. Puncture Site Left radial Patient Temperature No Result Required. ABG pH 7.355 ABG pCO2 38.40 ABG pO2 174.9 H ABG HCO3 21.0 L ABG O2 Sat (Measured) 99.1 H ABG O2 Content No Result Required. ABG Base Excess -4.2 L Ganga Test Positive Patient On Oxygen Yes O2 Delivery Device N/c Oxygen Flow Rate 6 Vent Mode No Result Required. Vent Rate No Result Required. Mechanical Rate No Result Required. PEEP No Result Required. Pressure Support Vent No Result Required. Sodium Potassium Chloride Carbon Dioxide Anion Gap BUN Creatinine Est GFR (CKD-EPI)AfAm Est GFR (CKD-EPI)NonAf Random Glucose Lactic Acid Calcium Phosphorus Magnesium Iron TIBC Iron Saturation Unsaturated IBC Ferritin Total Bilirubin AST ALT Alkaline Phosphatase LD Total Troponin I C-Reactive Protein B-Natriuretic Peptide Total Protein Albumin Vitamin B12 Serum Folate Urine Color Urine Appearance Urine pH Ur Specific [place] Urine Protein Urine Glucose (UA) Urine Ketones Urine Blood Urine Nitrite Urine Bilirubin Urine Urobilinogen Ur Leukocyte Esterase Stool Occult Blood Negative Blood Type A POSITIVE Antibody Screen Negative Crossmatch See Detail 07/06/20 11:49 WBC RBC Hgb Hct MCV MCH MCHC RDW Plt Count MPV Absolute Neuts (auto) Neutrophils % Neutrophils % (Manual) Band Neutrophils % Lymphocytes % Lymphocytes % (Manual) Monocytes % Monocytes % (Manual) Eosinophils % Eosinophils % (Manual) Basophils % Basophils % (Manual) Myelocytes % (Man) Promyelocytes % (Man) Blast Cells % (Manual) Nucleated RBC % Metamyelocytes Hypochromia Platelet Estimate Polychromasia Anisocytosis Microcytosis Macrocytosis Tear Drop Cells Retic Count PT with INR INR PTT (Actin FS) Anticoagulation Therapy Puncture Site Patient Temperature ABG pH ABG pCO2 ABG pO2 ABG HCO3 ABG O2 Sat (Measured) ABG O2 Content ABG Base Excess Ganga Test Patient On Oxygen O2 Delivery Device Oxygen Flow Rate Vent Mode Vent Rate Mechanical Rate PEEP Pressure Support Vent Sodium Potassium Chloride Carbon Dioxide Anion Gap BUN Creatinine Est GFR (CKD-EPI)AfAm Est GFR (CKD-EPI)NonAf Random Glucose Lactic Acid 1.9 Calcium Phosphorus Magnesium Iron TIBC Iron Saturation Unsaturated IBC Ferritin Total Bilirubin AST ALT Alkaline Phosphatase LD Total Troponin I C-Reactive Protein B-Natriuretic Peptide Total Protein Albumin Vitamin B12 Serum Folate Urine Color Urine Appearance Urine pH Ur Specific [place] Urine Protein Urine Glucose (UA) Urine Ketones Urine Blood Urine Nitrite Urine Bilirubin Urine Urobilinogen Ur Leukocyte Esterase Stool Occult Blood Blood Type Antibody Screen Crossmatch Active Medications Generic Name Dose Route Start Last Admin Trade Name Freq PRN Reason Stop Dose Admin Albuterol Sulfate 2 puff 07/06/20 14:00 07/06/20 14:22 Ventolin Hfa Inhaler - IH Not Given Q4HWA [facility] Ascorbic Acid 500 mg 07/07/20 10:00 Vitamin C - PO DAILY [facility] Atorvastatin Calcium 40 mg 07/07/20 22:00 Lipitor - PO HS [facility] Budesonide/Formoterol Fumarate 1 puff 07/06/20 22:00 Symbicort 160/4.5mcg - IH BID [facility] Cholecalciferol 1,000 unit 07/07/20 10:00 Vitamin D3 - PO DAILY [facility] Ferrous Sulfate 325 mg 07/07/20 10:00 Feosol - PO DAILY [facility] Sodium Chloride 1,000 mls @ 75 mls/hr 07/06/20 12:00 07/06/20 14:21 Normal Saline - IV 75 mls/hr ASDIR [facility] Administration Piperacillin Sod/Tazobactam 50 mls @ 100 mls/hr 07/06/20 18:00 Sod 3.375 gm/ Dextrose IVPB Q8H-IV [facility] Protocol Piperacillin Sod/Tazobactam 50 mls @ 100 mls/hr 07/06/20 18:00 Sod 3.375 gm/ Dextrose IVPB 07/07/20 10:29 Q8H-IV [facility] Loratadine 10 mg 07/06/20 12:11 Claritin - PO DAILY PRN ALLERGIES Multivitamins/Minerals/Vitamin C 1 tab 07/06/20 12:00 07/06/20 14:22 Tab-A-Vit - PO Not Given DAILY [facility] Potassium Chloride 10 meq 07/07/20 10:00 K-Dur - PO DAILY [facility] Sertraline HCl 75 mg 07/07/20 10:00 Zoloft - PO DAILY [facility] Vancomycin HCl 1,000 mg 07/07/20 10:00 Vancomycin (Pre-Docked) IVPB DAILY [facility] Protocol Vancomycin HCl 1,000 mg 07/07/20 10:00 Vancomycin (Pre-Docked) IVPB 07/07/20 10:01 ONCE ONE ASSESSMENT/PLAN: Patient is an 89 year old female with past medical history of CAD, COPD (on 2L NC), Asthma, HTN, HLD, Depression, Insomnia, Dementia, was brought in the ED due to difficulty breathing and hypoxia for 1 day. We were consulted to evaluate patient for anemia. #Normocytic Anemia -likely multifactorial including anemia of inflammation from sepsis, GLADYS, severe malnutrition, ?GI loss -Hgb 6.4, MCV 93.4 -FOBT negative -Low iron 19, TSAT 6% indicating iron deficiency, ferritin likely normal in setting of inflammation -B12, folate -transfuse prn to keep Hgb >8, given hx of cardiac disease -Data on IV iron and acute infection is conflicting. Although risk of infection with IV iron seems to be negligible. But due to theoretical concerns of Iv iron and association with increased infection, we could delay giving IV iron until active infection resolved. #Leukocytosis -likely reactive in the setting of sepsis 2/2 pneumonia, anemia -continue IV antibiotics and IVF as per primary team -monitor CBC Dispo: We will continue to follow the patient. Thank you for this consultative opportunity. Visit type - Medication Review Med list reviewed for High Risk Meds patients 65 and older: Yes - Emergency Visit Emergency Visit: Yes ED Registration Date: 07/06/20 Care time: The patient presented to the Emergency Department on the above date and was hospitalized for further evaluation of their emergent condition. - New Patient This patient is new to me today: Yes Date on this admission: 07/06/20 - Critical Care Critical Care patient: No ATTENDING PHYSICIAN STATEMENT I saw and evaluated the patient. I reviewed the resident's note and discussed the case with the resident. I agree with the resident's findings and plan as documented. SUBJECTIVE: OBJECTIVE: ASSESSMENT AND PLAN:
--- NOTE | 2020-07-06 15:41 | CON.ID ---
Consult Referred by:: hospitalist Reason for Consultation:: pneumonia - History of Present Illness Chief Complaint: respiratory distress History of Present Illness: 89 yo female NHR with dementia- noted to be hypoxic with resp distress at the [place] and sent to the ED she was noted to have leukocytosis of 27k and anemia- she had a similar presentation in April when she also presented with sob, anemia and leukocytosis family declined any invasive workup and she was discharged back to the [place] now with bilateral patchy infiltrates on cxray given vancomycin and zosyn in the ED - History Source History Provided By: Medical Record - Past Medical History [employer]ING [employer]: Yes: Dementia Cardio/Vascular: Yes: CAD, HTN, Hyperlipdemia, CT Pulmonary: Yes: COPD (on 2 liters oxygen) Heme/Onc: Yes: Anemia Psych: Yes: Depression - Alcohol/Substance Use Hx Alcohol Use: No - Smoking History Smoking history: Unknown if ever smoked Have you smoked in the past 12 months: No - Social History Usual Living Arrangement: Intermediate History of Recent Travel: No Home Medications - Allergies Allergies/Adverse Reactions: Allergies Allergy/AdvReac Type Severity Reaction Status Date / Time No Known Allergies Allergy Verified 07/06/20 06:50 - Home Medications Home Medications: Ambulatory Orders Ascorbic Acid 500 mg PO DAILY 04/25/20 Aspirin [ASA -] 81 mg PO DAILY 04/25/20 Atorvastatin Calcium 40 mg PO DAILY 04/25/20 Cholecalciferol (Vitamin D3) [Vitamin D3] 1,000 unit PO DAILY 04/25/20 Clopidogrel Bisulfate [Clopidogrel] 75 mg PO DAILY 04/25/20 Furosemide [Lasix -] 10 mg PO DAILY 04/25/20 Lisinopril 20 mg PO DAILY 04/25/20 Loratadine 10 mg PO DAILY PRN 04/25/20 Potassium Chloride 10 meq PO DAILY 04/25/20 Sertraline HCl [Zoloft] 75 mg PO DAILY 04/25/20 Albuterol Sulfate Inhaler - [Ventolin HFA Inhaler -] 1 - 2 inh PO Q4H #1 inhaler 05/04/20 Budesonide/Formeterol Fumarate [SYMBICORT 160/4.5mcg -] 1 inh PO BID #1 cannister 05/04/20 Metoprolol Succinate [Toprol Xl] 25 mg PO DAILY #30 tab.er.24h 05/04/20 Albuterol 0.083% Nebulizer Nandini [Ventolin 0.083%] 1 neb NEB Q4H 07/06/20 Ferrous Sulfate [Feosol] 325 mg PO DAILY 07/06/20 Family Medical History Family History: Unable to Obtain Review of Systems Unable to obtain ROS, reason: unable to obtain Physical Exam Vital Signs: Vital Signs Temperature 99.2 F 07/06/20 06:42 Pulse Rate 87 07/06/20 12:56 Respiratory Rate 24 H 07/06/20 12:56 Blood Pressure 119/62 07/06/20 12:56 O2 Sat by Pulse Oximetry (%) 98 07/06/20 12:56 Constitutional: Yes: No Distress, Thin HENT: Yes: Atraumatic, Normocephalic Cardiovascular: Yes: Regular Rate and Rhythm Respiratory: Yes: Diminished Gastrointestinal: Yes: Normal Bowel Sounds, Soft Edema: No Integumentary: Yes: WNL Neurological: Yes: Lethargy Labs: CBC, BMP 07/06/20 07:30 07/06/20 07:30 cultures pending lactic acid 3.9 Imaging - Results Chest X-ray: Report Reviewed, Image Reviewed Assessment/Plan sepsis probable aspiration pneumonia agree with cultures and zosyn hold further vancomycin check urinary antigens anemia- recurrent- noted in April as well- hematology has been consulted dementia
[2020-07-06] MEDS ORDERED: PIPERACILLIN/TAZOBACTAM 3.375 GM VIAL IVPB ONE (17:08)
[2020-07-06] MEDS ORDERED: DEXTROSE 5%-WATER - 50 ML IVPB ONE (17:09)
[2020-07-06] MEDS ORDERED: PIPERACILLIN/TAZOB 3.375 GM 3.375 GM in DEXTROSE 5%-WATER - 50 ML IVPB SCH (18:00)
[2020-07-06] MEDS: PIPERACILLIN/TAZOB 3.375 GM 3.375 GM in DEXTROSE 5%-WATER - 50 ML IVPB SCH (19:04)
--- NOTE | 2020-07-06 20:08 | PN ---
Teaching Attending Note Name of Resident: Julia Urrutia ATTENDING PHYSICIAN STATEMENT I saw and evaluated the patient. I reviewed the resident's note and discussed the case with the resident. I agree with the resident's findings and plan as documented. ASSESSMENT AND PLAN: 89-year-old female with multiple comorbidities who presents from [facility] for difficulty breathing and hypothermia. Patient with dementia but able to answer simple questions Reports coughing CXR patchy b/l infiltrates. congestive changes r/o COVID r/o aspirationpneumonia On zosyn/vancomycin we have been consulted for recurrent anemia , Hgb 6s iron saturation -5%// ferritin 35 multifactorial chronic blood loss + chronic disease she reports remote h/o EGD/colonoscopy Would hold off on iv iron at this time ---although association with infection is negligible, would await acute infection to resolve prior to considering iv iron Leukocytosis/neutrophilia : reactive to infection + troponin, elevated BNP, elevated D dimer
--- NOTE | 2020-07-06 20:52 | PN ---
Progress Note (short form) - Note Progress Note: Per sign out from day team, pt had uptrending trop >3.[address] depression on EKG from 6 AM with expected demand ischemia as cause due to sepsis. Pt not c/o chest pain. Pt is being transfused at moment and would be poor candidate for AC at this time either way. Pt rpt EKG with no ST changes anymore. Will continue to trend trops as per cardios rec (spoke with Dr. Holder) and continue to trend until AM but no reason for ACS initiation unless pt with active cp or drastic elevation of trop with ekg changes. Will give pt asa and statin and f/u rpt trop and CK at 1AM. Rpt cbc ordered for post transfusion H/H check and will make sure to transfuse again if not >8 given cardiac hx of NSTEMI.
[2020-07-06] MEDS ORDERED: PT OWN MED DRAWER 7, Y5N ONE (22:21)
[2020-07-06] MEDS ORDERED: ASPIRIN 81 MG CHEWABLE TABLETS PO ONE ×2 (23:00→23:15)
[2020-07-06] MEDS ORDERED: ATORVASTATIN CA 40 MG TABLET (FP) PO ONE ×2 (23:00→23:15)
[2020-07-06] MEDS: BUDESONIDE/FORMETEROL FUMARATE 160/4.5 mcg INHALER IH SCH (23:05)
[2020-07-07] MEDS ORDERED: PIPERACILLIN/TAZOBACTAM 3.375 GM VIAL IVPB ONE ×3 (01:05→17:00)
[2020-07-07] MEDS ORDERED: DEXTROSE 5%-WATER - 50 ML IVPB ONE ×3 (01:05→17:00)
[2020-07-07] MEDS: PIPERACILLIN/TAZOB 3.375 GM 3.375 GM in DEXTROSE 5%-WATER - 50 ML IVPB SCH ×3 (01:08→17:13)
[2020-07-07 01:15] LABS: BASO % 0.3 % (0-2.0); HEMATOCRIT 27.4 % (32.4-45.2); HEMOGLOBIN 8.8 GM/dL (10.7-15.3); LYMPH % 7.9 % (8-40); MCH 29.4 pg (25.7-33.7); MCHC 32.3 g/dl (32.0-36.0); MEAN CELL VOLUME 91.1 fl (80-96); MEAN PLT VOLUME 8.7 fl (7.5-11.1); MONO % 8.8 % (3.8-10.2); PLATELET COUNT 232 K/MM3 (134-434); RBC 3.01 M/mm3 (3.60-5.2); RDW 16.6 % (11.6-15.6)
[2020-07-07] MEDS: ALBUTEROL SO4 HFA INHALER IH SCH ×5 (05:46→22:33)
[2020-07-07 07:25] LABS: BASO % 0.1 % (0-2.0); HEMATOCRIT 25.9 % (32.4-45.2); HEMOGLOBIN 8.3 GM/dL (10.7-15.3); LYMPH % 11.1 % (8-40); MCH 29.1 pg (25.7-33.7); MCHC 32.2 g/dl (32.0-36.0); MEAN CELL VOLUME 90.3 fl (80-96); NEUT % 77.8 % (42.8-82.8); PLATELET COUNT 245 K/MM3 (134-434); RBC 2.87 M/mm3 (3.60-5.2); RDW 16.8 % (11.6-15.6); WHITE BLOOD COUNT 9.9 K/mm3 (4.0-10.0)
[2020-07-07 07:47] LABS: POTASSIUM 4.4 mmol/L (3.5-5.1)
[2020-07-07 08:00] LABS: ALBUMIN 2.2 g/dl (3.4-5.0); BLOOD UREA NITROGEN 19.3 mg/dL (7-18); CALCIUM 7.4 mg/dL (8.5-10.1); CREATININE 0.8 mg/dL (0.55-1.3); PHOSPHOROUS 3.2 mg/dL (2.5-4.9); TOT PROT 4.8 g/dl (6.4-8.2)
[2020-07-07 08:02] LABS: BILIRUBIN,TOTAL 2.6 mg/dL (0.2-1)
--- NOTE | 2020-07-07 08:59 | PN ---
Progress Note, Physician History of Present Illness: 89 year old female with past medical history of CAD, COPD (on 2L NC), Asthma, HTN, HLD, Depression, Insomnia, Dementia, was brought in the ED due to difficulty breathing and hypoxia for 1 day. - Current Medication List Current Medications: Active Medications Albuterol Sulfate (Ventolin Hfa Inhaler -) 2 puff IH Q4HWA [facility] Last Admin: 07/07/20 05:46 Dose: 2 puff Documented by: Ascorbic Acid (Vitamin C -) 500 mg PO DAILY [facility] Atorvastatin Calcium (Lipitor -) 40 mg PO HS [facility] Budesonide/Formoterol Fumarate (Symbicort 160/4.5mcg -) 1 puff IH BID [facility] Last Admin: 07/06/20 23:05 Dose: 1 puff Documented by: Cholecalciferol (Vitamin D3 -) 1,000 unit PO DAILY [facility] Ferrous Sulfate (Feosol -) 325 mg PO DAILY [facility] Sodium Chloride (Normal Saline -) 1,000 mls @ 75 mls/hr IV ASDIR [facility] Last Admin: 07/06/20 14:21 Dose: 75 mls/hr Documented by: Piperacillin Sod/Tazobactam (Sod 3.375 gm/ Dextrose) 50 mls @ 100 mls/hr IVPB Q8H-IV [facility]; Protocol Last Admin: 07/07/20 01:08 Dose: 100 mls/hr Documented by: Loratadine (Claritin -) 10 mg PO DAILY PRN PRN Reason: ALLERGIES Multivitamins/Minerals/Vitamin C (Tab-A-Vit -) 1 tab PO DAILY [facility] Last Admin: 07/06/20 14:22 Dose: Not Given Documented by: Potassium Chloride (K-Dur -) 10 meq PO DAILY [facility] Sertraline HCl (Zoloft -) 75 mg PO DAILY [facility] Vancomycin HCl (Vancomycin (Pre-Docked)) 1,000 mg IVPB ONCE ONE Stop: 07/07/20 10:01 - Objective Vital Signs: Vital Signs Temperature 98.3 F 07/07/20 06:00 Pulse Rate 75 07/07/20 06:00 Respiratory Rate 20 07/07/20 06:00 Blood Pressure 105/47 L 07/07/20 06:00 O2 Sat by Pulse Oximetry (%) 98 07/07/20 06:00 Cardiovascular: Yes: S1, S2 Respiratory: Yes: Regular, CTA Bilaterally Gastrointestinal: Yes: Normal Bowel Sounds, Soft. No: Tenderness Labs: CBC, BMP 07/07/20 05:23 07/07/20 05:23 INR, PTT INR 0.97 (0.83-1.09) 07/06/20 07:30 Problem List - Problems (1) Sepsis Assessment/Plan: likely due Aspiration PNA -Follow covid serology, Blood Cx, Urine Cx -Trend Lactic -ID (Dr. Lemons) consulted--[facility] Microbiology -IV Hydration via NS @ 75 07/06/20 07:55 Urine - Urine - Catheterized Urine Culture - Final NO GROWTH OBTAINED 07/06/20 07:20 Blood - Peripheral Venous Blood Culture - Preliminary NO GROWTH OBTAINED AFTER 24 HOURS, INCUBATION TO CONTINUE FOR 4 DAYS. 07/06/20 07:30 Blood - Peripheral Venous Blood Culture - Preliminary NO GROWTH OBTAINED AFTER 24 HOURS, INCUBATION TO CONTINUE FOR 4 DAYS. Code(s): A41.9 - SEPSIS, UNSPECIFIED ORGANISM (2) Anemia Assessment/Plan: -Possibly Acute blood loss anemia -Transfuse to keep > 8.0 (CAD hx) -Heme and GI consult -PPI Code(s): D64.9 - ANEMIA, UNSPECIFIED (3) Acute respiratory failure with hypoxia and hypercarbia Assessment/Plan: -Pulm consult -Supplemental O2 to maintain SpO2 >92%; Currently on NC -Resume Home dose bronchodilators Code(s): J96.01 - ACUTE RESPIRATORY FAILURE WITH HYPOXIA; J96.02 - ACUTE RESPIRATORY FAILURE WITH HYPERCAPNIA (4) Elevated troponin Assessment/Plan: -cardio -Hold Antiplatelet agent for now given concerns for bleeding Code(s): R79.89 - OTHER SPECIFIED ABNORMAL FINDINGS OF BLOOD CHEMISTRY (5) Change in mental status Assessment/Plan: -Likely due to Sepsis in the setting of underlying Dementia -Neuro Code(s): R41.82 - ALTERED MENTAL STATUS, UNSPECIFIED (6) Malnutrition Assessment/Plan: -Dietary Consult -Supplemental Nutrition -MVI Code(s): E46 - UNSPECIFIED PROTEIN-CALORIE MALNUTRITION
[2020-07-07] MEDS: SODIUM CHLORIDE 1,000 ML IV SCH ×2 (09:21→14:35)
[2020-07-07] MEDS: SERTRALINE HCL 25 MG TABLET (FP) PO SCH (09:24)
[2020-07-07] MEDS: FERROUS SO4 325 MG TABLET (FP) PO SCH (09:24)
[2020-07-07] MEDS: MULTIVITAMINS (DAILY MVI) TABLET (FP) PO SCH (09:24)
[2020-07-07] MEDS: ASCORBIC ACID 500 MG TABLET (FP) PO SCH (09:24)
[2020-07-07] MEDS: POTASSIUM CHLORIDE TABS 10 MEQ TABLET.ER (FP) PO SCH (09:26)
[2020-07-07] MEDS: CHOLECALCIFEROL (VIT D3) 1,000 UNIT (25 MCG) TABLET PO SCH (09:26)
[2020-07-07] MEDS: BUDESONIDE/FORMETEROL FUMARATE 160/4.5 mcg INHALER IH SCH ×2 (09:26→22:33)
[2020-07-07] MEDS ORDERED: VANCOMYCIN 1 GM in D5W (PRE-DOCKED) 1,000 MG/250 ML IVPB SCH (10:00)
[2020-07-07] MEDS ORDERED: VANCOMYCIN 1 GM in D5W (PRE-DOCKED) 1,000 MG/250 ML IVPB ONE (10:00)
--- NOTE | 2020-07-07 12:14 | CON.CARD ---
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 CXR b/l opacities. WBC 27, Hgb 6.4, Trops 2's with normal CK, and LA 3.9 Patient AOx1. No chest pain. Appears comfortable at his time. No LE edema. 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 Cardio/Vascular: Yes: CAD, HTN, Hyperlipdemia, [place] Pulmonary: Yes: COPD (on 2 liters oxygen) Psych: Yes: Depression - Alcohol/Substance Use Hx Alcohol Use: No - Smoking History Smoking history: Unknown if ever smoked Have you smoked in the past 12 months: No - Social History [facility]ual [facility] Arrangement: [facility] History of Recent Travel: No Home Medications - Allergies Allergies/Adverse Reactions: Allergies Allergy/AdvReac Type Severity Reaction Status Date / Time No Known Allergies Allergy Verified 07/06/20 06:50 - Home Medications Home Medications: Ambulatory Orders Ascorbic Acid 500 mg PO DAILY 04/25/20 Aspirin [ASA -] 81 mg PO DAILY 04/25/20 Atorvastatin Calcium 40 mg PO DAILY 04/25/20 Cholecalciferol (Vitamin D3) [Vitamin D3] 1,000 unit PO DAILY 04/25/20 Clopidogrel Bisulfate [Clopidogrel] 75 mg PO DAILY 04/25/20 Furosemide [Lasix -] 10 mg PO DAILY 04/25/20 Lisinopril 20 mg PO DAILY 04/25/20 Loratadine 10 mg PO DAILY PRN 04/25/20 Potassium Chloride 10 meq PO DAILY 04/25/20 Sertraline HCl [Zoloft] 75 mg PO DAILY 04/25/20 Albuterol Sulfate Inhaler - [Ventolin HFA Inhaler -] 1 - 2 inh PO Q4H #1 inhaler 05/04/20 Budesonide/Formeterol Fumarate [SYMBICORT 160/4.5mcg -] 1 inh PO BID #1 cannister 05/04/20 Metoprolol Succinate [Toprol Xl] 25 mg PO DAILY #30 tab.er.24h 05/04/20 Albuterol 0.083% Nebulizer Nandini [Ventolin 0.083%] 1 neb NEB Q4H 07/06/20 Ferrous Sulfate [Feosol] 325 mg PO DAILY 07/06/20 Vital Signs: Vital Signs Temperature 98.6 F 07/07/20 10:00 Pulse Rate 73 07/07/20 10:00 Respiratory Rate 19 07/07/20 10:00 Blood Pressure 122/44 L 07/07/20 10:00 O2 Sat by Pulse Oximetry (%) 94 L 07/07/20 10:00 Constitutional: Yes: No Distress Neck: Yes: Supple Respiratory: Yes: Diminished Gastrointestinal: Yes: Soft Cardiovascular: Yes: Regular Rate and Rhythm JVD: No Carotid Bruit: No PMI: Non-Displaced Heart Sounds: Yes: S1, S2 Edema: No - Other Data Labs, Other Data: CBC, BMP 07/07/20 05:23 07/07/20 05:23 INR, PTT INR 0.97 (0.83-1.09) 07/06/20 07:30 Troponin, BNP 07/06/20 07/07/20 07/07/20 17:00 01:00 05:23 Troponin I 3.22 H* 2.59 H* 2.23 H* Troponin, BNP 07/06/20 07/07/20 07/07/20 17:00 01:00 05:23 Troponin I 3.22 H* 2.59 H* 2.23 H* Imaging - Results Chest X-ray: Report Reviewed EKG: Image Reviewed Problem List - Problems (1) Sepsis due to pneumonia Code(s): J18.9 - PNEUMONIA, UNSPECIFIED ORGANISM; A41.9 - SEPSIS, UNSPECIFIED ORGANISM (2) HTN (hypertension) Code(s): I10 - ESSENTIAL (PRIMARY) HYPERTENSION Qualifiers: Hypertension type: essential hypertension Qualified Code(s): I10 - [place]entia l (primary) hypertension (3) Hypercholesterolemia Code(s): E78.00 - PURE HYPERCHOLESTEROLEMIA, UNSPECIFIED (4) Elevated troponin Code(s): R79.89 - OTHER SPECIFIED ABNORMAL FINDINGS OF BLOOD CHEMISTRY Assessment/Plan 89 year old with a pmhx of CAD (nstemi April 2020), copd on home O2, asthma, htn, hld, and dementia sent from [facility]. CXR b/l opacities. WBC 27, Hgb 6.4, Trops 2's with normal CK, and LA 3.9 Patient AOx1. No chest pain. Appears comfortable at his time. No LE edema. EKG: sinus with inferior and lateral ST depressions 1) SOB multifactorial R/o COVID Abx for possible pneumonia as per primary team Anemia treated with transfusion 2) +troponins/cad Patient with likely cad with troponin leak in setting of demand ischemia. EKG abnormalities likely in setting of significant anemia and infection. Would treat underlying illness/infection and anemia. Keep Hgb over 8 CK normal. Troponins downtrending today. No chest pain. Echo was only odne 04/2020 with normal LVEF, mod MR/TR. No need for repeat echo. No further cardiac testing. Aspirin if no contraindication from hematology Statin Will sign off. Conservative cardiac medical management
--- NOTE | 2020-07-07 12:43 | CON.PULM ---
Consult Consult Specialty:: PULMONARY Referred by:: Dr Khan Reason for Consultation:: hypoxia - History of Present Illness Chief Complaint: shortness of breath History of Present Illness: 89yo female with h/o HTN, hyeprlipidemia, COPD, chronic hypoxic respiratory failure on home O2, CAD, dementia who [facility] with worsening shortness of breath. Found to be hypoxic to 66% and tachypneic. Pt unable to provide further history at this time. CXR showing bilateral infiltrates and pulmonary vascular congestion. No fevers recorded. 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 Cardio/Vascular: Yes: CAD, HTN, Hyperlipdemia, [place] Pulmonary: Yes: COPD (on 2 liters oxygen) Psych: Yes: Depression - Alcohol/Substance Use Hx Alcohol Use: No - Smoking History Smoking history: Unknown if ever smoked Have you smoked in the past 12 months: No - Social History Usual Living Arrangement: [facility] History of Recent Travel: No Home Medications - Allergies Allergies/Adverse Reactions: Allergies Allergy/AdvReac Type Severity Reaction Status Date / Time No Known Allergies Allergy Verified 07/06/20 06:50 - Home Medications Home Medications: Ambulatory Orders Ascorbic Acid 500 mg PO DAILY 04/25/20 Aspirin [ASA -] 81 mg PO DAILY 04/25/20 Atorvastatin Calcium 40 mg PO DAILY 04/25/20 Cholecalciferol (Vitamin D3) [Vitamin D3] 1,000 unit PO DAILY 04/25/20 Clopidogrel Bisulfate [Clopidogrel] 75 mg PO DAILY 04/25/20 Furosemide [Lasix -] 10 mg PO DAILY 04/25/20 Lisinopril 20 mg PO DAILY 04/25/20 Loratadine 10 mg PO DAILY PRN 04/25/20 Potassium Chloride 10 meq PO DAILY 04/25/20 Sertraline HCl [Zoloft] 75 mg PO DAILY 04/25/20 Albuterol Sulfate Inhaler - [Ventolin HFA Inhaler -] 1 - 2 inh PO Q4H #1 inhaler 05/04/20 Budesonide/Formeterol Fumarate [SYMBICORT 160/4.5mcg -] 1 inh PO BID #1 cannister 05/04/20 Metoprolol Succinate [Toprol Xl] 25 mg PO DAILY #30 tab.er.24h 05/04/20 Albuterol 0.083% Nebulizer Nandini [Ventolin 0.083%] 1 neb NEB Q4H 07/06/20 Ferrous Sulfate [Feosol] 325 mg PO DAILY 07/06/20 Review of Systems Unable to obtain ROS, reason: pt lethargic Physical Exam Vital Sings: Vital Signs Temperature 98.6 F 07/07/20 10:00 Pulse Rate 73 07/07/20 10:00 Respiratory Rate 19 07/07/20 10:00 Blood Pressure 122/44 L 07/07/20 10:00 O2 Sat by Pulse Oximetry (%) 94 L 07/07/20 10:00 Constitutional: Yes: Calm Eyes: Yes: Conjunctiva Clear, EOM Intact HENT: Yes: Atraumatic, Normocephalic Neck: Yes: Supple, Trachea Midline Cardiovascular: Yes: Regular Rate and Rhythm Respiratory: Yes: Rales ...Clubbing: No Gastrointestinal: Yes: Normal Bowel Sounds, Soft. No: Tenderness Edema: No Neurological: Yes: Lethargy Labs: CBC, BMP 07/07/20 05:23 07/07/20 05:23 ABG Results ABG pH 7.355 (7.350-7.450) 07/06/20 08:00 ABG HCO3 21.0 mmol/L (22-27) L 07/06/20 08:00 ABG O2 Sat (Measured) 99.1 mmHg (95-98) H 07/06/20 08:00 ABG O2 Content No Result Required. 07/06/20 08:00 ABG Base Excess -4.2 mmol/L (-2-2) L 07/06/20 08:00 Imaging - Results Chest X-ray: Report Reviewed, Image Reviewed (bilateral infiltrates, pulmonary vascular congestion) Assessment/Plan Acute on Chronic Hypoxic Respiratory Failure Pneumonia likely Aspiration COPD CAD +Troponins likely Demand Ischemia HTN Hyperlipidemia Dementia - continue antibiotics - f/u cultures - O2 to keep SpO2 >905 - inhaled bronchodilators - can monitor off steriods at this time - DVT prophylaxis Thank you for this consult Melvin Perez MD
--- NOTE | 2020-07-07 13:51 | CON.GI ---
Consult Consult Specialty:: GI Referred by:: Dr. Jess Khan Reason for Consultation:: Anemia - History of Present Illness Chief Complaint: Shortness of breath History of Present Illness: 89F admitted [facility] for evaluation of SOB. WBC 27K noted. Noted anemic with Hgb of 6.4. Trnasfused 2 U PRBC. Hgb 10.4 05/14. No overt bleeding. No abdominal pain. Patient confused. medication list included ASA/Plavix. GI prophylaxis is not listed. Continued dyspnea and on 5L NC. CXR witrh bilateral iniltrates and congestive changes. GI prophylaxis not initiated as of yet. Guaiac negative from specimen sent to lab. 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 Cardio/Vascular: Yes: CAD, HTN, Hyperlipdemia, [place] Pulmonary: Yes: COPD (on 2 liters oxygen) Psych: Yes: Depression - Alcohol/Substance Use Hx Alcohol Use: No - Smoking History Smoking history: Unknown if ever smoked Have you smoked in the past 12 months: No - Social History Usual Living Arrangement: [facility] History of Recent Travel: No Home Medications - Allergies Allergies/Adverse Reactions: Allergies Allergy/AdvReac Type Severity Reaction Status Date / Time No Known Allergies Allergy Verified 07/06/20 06:50 - Home Medications Home Medications: Ambulatory Orders Ascorbic Acid 500 mg PO DAILY 04/25/20 Aspirin [ASA -] 81 mg PO DAILY 04/25/20 Atorvastatin Calcium 40 mg PO DAILY 04/25/20 Cholecalciferol (Vitamin D3) [Vitamin D3] 1,000 unit PO DAILY 04/25/20 Clopidogrel Bisulfate [Clopidogrel] 75 mg PO DAILY 04/25/20 Furosemide [Lasix -] 10 mg PO DAILY 04/25/20 Lisinopril 20 mg PO DAILY 04/25/20 Loratadine 10 mg PO DAILY PRN 04/25/20 Potassium Chloride 10 meq PO DAILY 04/25/20 Sertraline HCl [Zoloft] 75 mg PO DAILY 04/25/20 Albuterol Sulfate Inhaler - [Ventolin HFA Inhaler -] 1 - 2 inh PO Q4H #1 inhaler 05/04/20 Budesonide/Formeterol Fumarate [SYMBICORT 160/4.5mcg -] 1 inh PO BID #1 cannister 05/04/20 Metoprolol Succinate [Toprol Xl] 25 mg PO DAILY #30 tab.er.24h 05/04/20 Albuterol 0.083% Nebulizer Nandini [Ventolin 0.083%] 1 neb NEB Q4H 07/06/20 Ferrous Sulfate [Feosol] 325 mg PO DAILY 07/06/20 Family Medical History Family History: Unable to Obtain Review of Systems - Review of Systems Constitutional: denies: Chills Respiratory: reports: SOB, SOB on Exertion, Wheezing Gastrointestinal: denies: Abdominal Pain, Melena, Rectal Bleeding Physical Exam-GI Vital Signs: Vital Signs Temperature 99.6 F Rectally 07/07/20 13:54 Pulse Rate 07/07/20 10:00 Respiratory Rate 07/07/20 10:00 Blood Pressure 07/07/20 10:00 O2 Sat by Pulse Oximetry (%) 07/07/20 10:00 Constitutional: Yes: Calm Eyes: No: Sclera Icterus Cardiovascular: Yes: Regular Rate and Rhythm. No: Murmur Respiratory: Yes: Rhonchi (inspiratory and expiratory), Wheezes (expiratory) Gastrointestinal Inspection: No: Distention ...Auscultate: Yes: Normoactive Bowel Sounds ...Palpate: Yes: Soft. No: Hepatomegaly, Splenomegaly, Tenderness ...Percussion: No: Tympanitic ...Rectal Exam: Yes: Other (Airborne Electronics Analyst present: no external lesions, no masses, Iron stained brown stool, guaiac negative) Edema: No (No LE edema) Neurological: Yes: Alert Labs: CBC, BMP 07/07/20 05:23 07/07/20 05:23 INR, PTT INR 0.97 (0.83-1.09) 07/06/20 07:30 Hepatic Panel Total Bilirubin 2.6 mg/dL (0.2-1) H D 07/07/20 05:23 AST 22 U/L (15-37) 07/07/20 05:23 ALT 27 U/L (13-61) 07/07/20 05:23 Alkaline Phosphatase 60 U/L (45-117) 07/07/20 05:23 Albumin 2.2 g/dl (3.4-5.0) L 07/07/20 05:23 Problem List - Problems (1) Anemia Assessment/Plan: No overt bleeding, guaiac negative on my exam and on specimen sent to lab. Baseline anemia worsened. Suspect multifactorial, anemia secondary to Sepsis> patient tachypnic, wheezing, increased O2 demands with rhonchi and congestive changes, infiltrates on CXR. Also with temp 99.4 on rectal exam today. Would defer endoscopic evaluation at this time and reserve for overt life threatening bleeding and if family would want to proceed with interventions. Would observe and if feasible hold or discontinue Plavix. Protonix 40mg once daily while on DAPT. keep Hgb >8 in setting of CAD. Consider hematology evaluation. Left message for her son Angelo Higgins to discuss potential endoscopic evaluations. Code(s): D64.9 - ANEMIA, UNSPECIFIED
[2020-07-07] MEDS ORDERED: FUROSEMIDE 40 MG/4 ML INJECTABLE VIAL IVPUSH ONE ×2 (14:21→20:00)
--- NOTE | 2020-07-07 14:46 | EKG ---
Test Reason : Blood Pressure : / mmHG Vent. Rate : 075 BPM Atrial Rate : 075 BPM P-R Int : 226 ms QRS Dur : 078 ms QT Int : 422 ms P-R-T Axes : 076 -23 109 degrees QTc Int : 471 ms SINUS RHYTHM WITH 1ST DEGREE A-V BLOCK SEPTAL INFARCT , AGE UNDETERMINED ABNORMAL ECG WHEN COMPARED WITH ECG OF 06-JUL-2020 07:07, [place] INTERVAL HAS INCREASED QRS DURATION HAS DECREASED SEPTAL INFARCT IS NOW PRESENT ST NO LONGER DEPRESSED IN INFERIOR LEADS ST NO LONGER DEPRESSED IN ANTERIOR LEADS Confirmed by MRAIO BENAVIDES MD ([id number]) on 07/07/2020 2:46:13 PM Referred By: Confirmed By:MARIO BENAVIDES MD
[2020-07-07] MEDS: PANTOPRAZOLE 40 MG TABLET PO SCH (14:49)
--- NOTE | 2020-07-07 16:10 | PN ---
Progress Note (short form) - Note Progress Note: much more alert no complaints Vital Signs Period Temp Pulse Resp BP Sys/Clemens Pulse Ox Last 24 Hr 97.4 F-99.4 F 73-103 19-20 92-164/44-79 92-100 cor-rrr lungs decreased bs at bases abd soft,nt ext no edema CBC, BMP 07/07/20 05:23 07/07/20 05:23 Microbiology 07/07/20 07:55 Urine For Antigen Detection Legionella Antigen - Final 07/07/20 07:55 Urine For Antigen Detection Streptococcus pneumoniae Antigen (M - Final 07/06/20 07:55 Urine - Urine - Catheterized Urine Culture - Final NO GROWTH OBTAINED 07/06/20 07:20 Blood - Peripheral Venous Blood Culture - Preliminary NO GROWTH OBTAINED AFTER 24 HOURS, INCUBATION TO CONTINUE FOR 4 DAYS. 07/06/20 07:30 Blood - Peripheral Venous Blood Culture - Preliminary NO GROWTH OBTAINED AFTER 24 HOURS, INCUBATION TO CONTINUE FOR 4 DAYS. a/p leukocytosis resolving- aspiration pneumonia suspected- improving on zosyn anemia- s/p transfusion elevated troponin
--- NOTE | 2020-07-07 19:23 | CON.NEURO ---
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 CXR b/l opacities. WBC 27, Hgb 6.4, Trops 2's with normal CK, and LA 3.9. I saw and examined the pt at the bedside , she is in mild distress , awake ,has nasal canola , she denies headache , numbness ; states that is not ambulatory . 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 Cardio/Vascular: Yes: CAD, HTN, Hyperlipdemia, [place] Pulmonary: Yes: COPD (on 2 liters oxygen) Psych: Yes: Depression - Alcohol/Substance Use Hx Alcohol Use: No - Smoking History Smoking history: Unknown if ever smoked Have you smoked in the past 12 months: No - Social History Usual Living Arrangement: Jail History of Recent Travel: No Home Medications - Allergies Allergies/Adverse Reactions: Allergies Allergy/AdvReac Type Severity Reaction Status Date / Time No Known Allergies Allergy Verified 07/06/20 06:50 - Home Medications Home Medications: Ambulatory Orders Ascorbic Acid 500 mg PO DAILY 04/25/20 Aspirin [ASA -] 81 mg PO DAILY 04/25/20 Atorvastatin Calcium 40 mg PO DAILY 04/25/20 Cholecalciferol (Vitamin D3) [Vitamin D3] 1,000 unit PO DAILY 04/25/20 Clopidogrel Bisulfate [Clopidogrel] 75 mg PO DAILY 04/25/20 Furosemide [Lasix -] 10 mg PO DAILY 04/25/20 Lisinopril 20 mg PO DAILY 04/25/20 Loratadine 10 mg PO DAILY PRN 04/25/20 Potassium Chloride 10 meq PO DAILY 04/25/20 Sertraline HCl [Zoloft] 75 mg PO DAILY 04/25/20 Albuterol Sulfate Inhaler - [Ventolin HFA Inhaler -] 1 - 2 inh PO Q4H #1 inhaler 05/04/20 Budesonide/Formeterol Fumarate [SYMBICORT 160/4.5mcg -] 1 inh PO BID #1 cannister 05/04/20 Metoprolol Succinate [Toprol Xl] 25 mg PO DAILY #30 tab.er.24h 05/04/20 Albuterol 0.083% Nebulizer Nandini [Ventolin 0.083%] 1 neb NEB Q4H 07/06/20 Ferrous Sulfate [Feosol] 325 mg PO DAILY 07/06/20 Review of Systems - Review of Systems Eyes: reports: No Symptoms HENT: reports: No Symptoms Neck: reports: No Symptoms Cardiovascular: reports: No Symptoms Endocrine: reports: No Symptoms Physical Exam-Neuro Vital Signs: Vital Signs Temperature 98.0 F 07/07/20 18:00 Pulse Rate 79 07/07/20 18:00 Respiratory Rate 07/07/20 18:00 Blood Pressure 130/49 L 07/07/20 18:00 O2 Sat by Pulse Oximetry (%) 92 L 07/07/20 13:45 Constitutional: Yes: Well Nourished Neck: Yes: WNL Cardiovascular: Yes: WNL Musculoskeletal: Yes: WNL Edema: No Psychiatric: Yes: WNL, Alert Labs: CBC, BMP 07/07/20 05:23 07/07/20 05:23 INR, PTT INR 0.97 (0.83-1.09) 07/06/20 07:30 - Neuro Exam Level Of Consciousness: Yes: Alert, Oriented to Person Eyes: Yes: PERRL Speech: WNL Cranial Nerves II-XII Intact: Yes Gag: Present DTR's: 1+ Left Bicep, 1+ Right Bicep, 1+ Left Tricep, 1+ Right Tricep, 1+ Left Brachioradialis, 1+ Right Brachioradialis, 1+ Left Achilles, 1+ Right Achilles Babinski: Absent Response to light touch: Normal Motor Strength: 4/5: Left Arm, Right Arm, Left Leg, Right Leg (Diffuse weakness) Gait: Deferred Problem List - Problems (1) Change in mental status Code(s): R41.82 - ALTERED MENTAL STATUS, UNSPECIFIED (2) Malnutrition Code(s): E46 - UNSPECIFIED PROTEIN-CALORIE MALNUTRITION (3) Sepsis due to pneumonia Code(s): J18.9 - PNEUMONIA, UNSPECIFIED ORGANISM; A41.9 - SEPSIS, UNSPECIFIED ORGANISM (4) COPD (chronic obstructive pulmonary disease) Code(s): J44.9 - CHRONIC OBSTRUCTIVE PULMONARY DISEASE, UNSPECIFIED Qualifiers: (5) Sepsis Code(s): A41.9 - SEPSIS, UNSPECIFIED ORGANISM Assessment/Plan 89 year old with a pmhx of CAD (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 Health maintenance per primary team. THX Jason Garcia MD [phone]
[2020-07-07] MEDS: ATORVASTATIN CA 40 MG TABLET (FP) PO SCH (22:32)
[2020-07-08] MEDS ORDERED: PIPERACILLIN/TAZOBACTAM 3.375 GM VIAL IVPB ONE ×3 (01:24→17:10)
[2020-07-08] MEDS: PIPERACILLIN/TAZOB 3.375 GM 3.375 GM in DEXTROSE 5%-WATER - 50 ML IVPB SCH ×3 (02:01→17:40)
[2020-07-08] MEDS: ALBUTEROL SO4 HFA INHALER IH SCH ×5 (06:02→21:48)
[2020-07-08] MEDS ORDERED: PT OWN MED DRAWER 7, Y5N ONE (09:06)
[2020-07-08] MEDS ORDERED: DEXTROSE 5%-WATER - 50 ML IVPB ONE ×2 (09:06→17:10)
--- NOTE | 2020-07-08 09:12 | PN ---
Progress Note, Physician - Current Medication List Current Medications: Active Medications Albuterol Sulfate (Ventolin Hfa Inhaler -) 2 puff IH Q4HWA [facility] Last Admin: 07/08/20 06:02 Dose: 2 puff Documented by: Ascorbic Acid (Vitamin C -) 500 mg PO DAILY [facility] Last Admin: 07/07/20 09:24 Dose: 500 mg Documented by: Atorvastatin Calcium (Lipitor -) 40 mg PO HS [facility] Last Admin: 07/07/20 22:32 Dose: 40 mg Documented by: Budesonide/Formoterol Fumarate (Symbicort 160/4.5mcg -) 1 puff IH BID [facility] Last Admin: 07/07/20 22:33 Dose: 1 puff Documented by: Cholecalciferol (Vitamin D3 -) 1,000 unit PO DAILY [facility] Last Admin: 07/07/20 09:26 Dose: 1,000 unit Documented by: Ferrous Sulfate (Feosol -) 325 mg PO DAILY [facility] Last Admin: 07/07/20 09:24 Dose: 325 mg Documented by: Sodium Chloride (Normal Saline -) 1,000 mls @ 75 mls/hr IV ASDIR [facility] Last Admin: 07/07/20 14:35 Dose: Not Given Documented by: Piperacillin Sod/Tazobactam (Sod 3.375 gm/ Dextrose) 50 mls @ 100 mls/hr IVPB Q8H-IV [facility]; Protocol Last Admin: 07/08/20 02:01 Dose: 100 mls/hr Documented by: Loratadine (Claritin -) 10 mg PO DAILY PRN PRN Reason: ALLERGIES Multivitamins/Minerals/Vitamin C (Tab-A-Vit -) 1 tab PO DAILY [facility] Last Admin: 07/07/20 09:24 Dose: 1 tab Documented by: Pantoprazole Sodium (Protonix -) 40 mg PO DAILY [facility] Last Admin: 07/07/20 14:49 Dose: Not Given Documented by: Potassium Chloride (K-Dur -) 10 meq PO DAILY [facility] Last Admin: 07/07/20 09:26 Dose: 10 meq Documented by: Sertraline HCl (Zoloft -) 75 mg PO DAILY [facility] Last Admin: 07/07/20 09:24 Dose: 75 mg Documented by: - Objective Vital Signs: Vital Signs Temperature 98.2 F 07/08/20 02:00 Pulse Rate 69 07/08/20 06:00 Respiratory Rate 07/08/20 06:00 Blood Pressure 146/59 L 07/08/20 06:00 O2 Sat by Pulse Oximetry (%) 96 07/08/20 02:00 Cardiovascular: Yes: S1, S2 Respiratory: Yes: Diminished, On Nasal O2 Gastrointestinal: Yes: Normal Bowel Sounds, Soft Labs: CBC, BMP 07/07/20 05:23 07/07/20 05:23 INR, PTT INR 0.97 (0.83-1.09) 07/06/20 07:30 Problem List - Problems (1) Sepsis Assessment/Plan: likely due Aspiration PNA -Follow covid serology, Blood Cx, Urine Cx -Trend Lactic -ID (Dr. Lemons) consulted--Zosyn Microbiology 07/06/20 07:20 Blood - Peripheral Venous Blood Culture - Preliminary NO GROWTH OBTAINED AFTER 48 HOURS, INCUBATION TO CONTINUE FOR 3 DAYS. 07/06/20 07:30 Blood - Peripheral Venous Blood Culture - Preliminary NO GROWTH OBTAINED AFTER 48 HOURS, INCUBATION TO CONTINUE FOR 3 DAYS. 07/07/20 07:55 Urine For Antigen Detection Legionella Antigen - Final 07/07/20 07:55 Urine For Antigen Detection Streptococcus pneumoniae Antigen (M - Final 07/06/20 07:55 Urine - Urine - Catheterized Urine Culture - Final NO GROWTH OBTAINED Code(s): A41.9 - SEPSIS, UNSPECIFIED ORGANISM (2) Anemia Assessment/Plan: -Possibly Acute blood loss anemia -Transfuse to keep > 8.0 (CAD hx) -Heme and -GI consult appreciated -PPI Laboratory Tests 07/06/20 07/07/20 07/07/20 07:30 01:00 05:23 Hgb 6.4 L* 8.8 L 8.3 L Code(s): D64.9 - ANEMIA, UNSPECIFIED (3) Acute respiratory failure with hypoxia and hypercarbia Assessment/Plan: -Pulm consult -Supplemental O2 to maintain SpO2 >92%; Currently on NC -Resume Home dose bronchodilators -Abx for PNA Code(s): J96.01 - ACUTE RESPIRATORY FAILURE WITH HYPOXIA; J96.02 - ACUTE RESPIRATORY FAILURE WITH HYPERCAPNIA (4) Elevated troponin Assessment/Plan: -cardio appreciated--asa if ok with gi and hem -Hold Antiplatelet agent for now given concerns for bleeding Code(s): R79.89 - OTHER SPECIFIED ABNORMAL FINDINGS OF BLOOD CHEMISTRY (5) Change in mental status Assessment/Plan: -Likely due to Sepsis in the setting of underlying Dementia -Neuro Code(s): R41.82 - ALTERED MENTAL STATUS, UNSPECIFIED (6) Malnutrition Assessment/Plan: -Clinimex -Dietary Consult -Supplemental Nutrition -MVI Code(s): E46 - UNSPECIFIED PROTEIN-CALORIE MALNUTRITION
[2020-07-08] MEDS: ASCORBIC ACID 500 MG TABLET (FP) PO SCH (09:49)
[2020-07-08] MEDS: MULTIVITAMINS (DAILY MVI) TABLET (FP) PO SCH (09:49)
[2020-07-08] MEDS: FERROUS SO4 325 MG TABLET (FP) PO SCH (09:49)
[2020-07-08] MEDS: POTASSIUM CHLORIDE TABS 10 MEQ TABLET.ER (FP) PO SCH (09:49)
[2020-07-08] MEDS: CHOLECALCIFEROL (VIT D3) 1,000 UNIT (25 MCG) TABLET PO SCH (09:49)
[2020-07-08] MEDS: SERTRALINE HCL 25 MG TABLET (FP) PO SCH (09:49)
[2020-07-08] MEDS: AMINO ACIDS 4.25%/D5W 1,000 ML IV SCH (09:50)
[2020-07-08] MEDS: BUDESONIDE/FORMETEROL FUMARATE 160/4.5 mcg INHALER IH SCH ×2 (09:50→21:48)
[2020-07-08] MEDS: PANTOPRAZOLE 40 MG TABLET PO SCH (09:50)
--- NOTE | 2020-07-08 10:30 | PN ---
Progress Note, Physician History of Present Illness: pulmonary alert,comfortable,-sob - Current Medication List Current Medications: Active Medications Albuterol Sulfate (Ventolin Hfa Inhaler -) 2 puff IH Q4HWA [facility] Last Admin: 07/08/20 09:50 Dose: 2 puff Documented by: Ascorbic Acid (Vitamin C -) 500 mg PO DAILY [facility] Last Admin: 07/08/20 09:49 Dose: 500 mg Documented by: Atorvastatin Calcium (Lipitor -) 40 mg PO HS [facility] Last Admin: 07/07/20 22:32 Dose: 40 mg Documented by: Budesonide/Formoterol Fumarate (Symbicort 160/4.5mcg -) 1 puff IH BID [facility] Last Admin: 07/08/20 09:50 Dose: 1 puff Documented by: Cholecalciferol (Vitamin D3 -) 1,000 unit PO DAILY [facility] Last Admin: 07/08/20 09:49 Dose: 1,000 unit Documented by: Ferrous Sulfate (Feosol -) 325 mg PO DAILY [facility] Last Admin: 07/08/20 09:49 Dose: 325 mg Documented by: Piperacillin Sod/Tazobactam (Sod 3.375 gm/ Dextrose) 50 mls @ 100 mls/hr IVPB Q8H-IV [facility]; Protocol Last Admin: 07/08/20 09:50 Dose: 100 mls/hr Documented by: Amino Acids (Clinimix -) 1,000 mls @ 42 mls/hr IV Q24H [facility] Last Admin: 07/08/20 09:50 Dose: Not Given Documented by: Loratadine (Claritin -) 10 mg PO DAILY PRN PRN Reason: ALLERGIES Multivitamins/Minerals/Vitamin C (Tab-A-Vit -) 1 tab PO DAILY [facility] Last Admin: 07/08/20 09:49 Dose: 1 tab Documented by: Pantoprazole Sodium (Protonix -) 40 mg PO DAILY [facility] Last Admin: 07/08/20 09:50 Dose: Not Given Documented by: Potassium Chloride (K-Dur -) 10 meq PO DAILY [facility] Last Admin: 07/08/20 09:49 Dose: 10 meq Documented by: Sertraline HCl (Zoloft -) 75 mg PO DAILY [facility] Last Admin: 07/08/20 09:49 Dose: 75 mg Documented by: - Objective Vital Signs: Vital Signs Temperature 99.5 F 07/08/20 10:00 Pulse Rate 81 07/08/20 10:00 Respiratory Rate 19 07/08/20 10:00 Blood Pressure 140/59 L 07/08/20 10:00 O2 Sat by Pulse Oximetry (%) 93 L 07/08/20 10:00 Constitutional: Yes: Calm, Cachectic Eyes: Yes: WNL HENT: Yes: WNL Neck: Yes: WNL Cardiovascular: Yes: Regular Rate and Rhythm, S1, S2 Respiratory: Yes: Diminished Gastrointestinal: Yes: Normal Bowel Sounds, Soft Extremities: Yes: WNL Edema: No Labs: CBC, BMP 07/07/20 05:23 Problem List - Problems (1) Anemia Code(s): D64.9 - ANEMIA, UNSPECIFIED (2) COPD (chronic obstructive pulmonary disease) Code(s): J44.9 - CHRONIC OBSTRUCTIVE PULMONARY DISEASE, UNSPECIFIED Qualifiers: (3) HTN (hypertension) Code(s): I10 - ESSENTIAL (PRIMARY) HYPERTENSION Qualifiers: Hypertension type: essential hypertension Qualified Code(s): I10 - Essential (primary) hypertension (4) Hypercholesterolemia Code(s): E78.00 - PURE HYPERCHOLESTEROLEMIA, UNSPECIFIED (5) Acute respiratory failure with hypoxia and hypercarbia Code(s): J96.01 - ACUTE RESPIRATORY FAILURE WITH HYPOXIA; J96.02 - ACUTE RESPIRATORY FAILURE WITH HYPERCAPNIA (6) COPD exacerbation Code(s): J44.1 - CHRONIC OBSTRUCTIVE PULMONARY DISEASE W (ACUTE) EXACERBATION (7) Elevated troponin Code(s): R79.89 - OTHER SPECIFIED ABNORMAL FINDINGS OF BLOOD CHEMISTRY (8) Acute and chronic respiratory failure with hypoxia Code(s): J96.21 - ACUTE AND CHRONIC RESPIRATORY FAILURE WITH HYPOXIA Assessment/Plan Assessment/Plan Acute on Chronic Hypoxic Respiratory Failure improving Pneumonia likely Aspiration COPD CAD +Troponins likely Demand Ischemia HTN Hyperlipidemia Dementia - continue antibiotics - O2 to keep SpO2 >905 - inhaled bronchodilators - can monitor off steriods at this time - DVT prophylaxis DR FINCH
--- NOTE | 2020-07-08 11:08 | PN.GI ---
GI Progress Note Subjective: No acute events No overt bleeding - Objective Vital Signs: Vital Signs Temperature 99.5 F 07/08/20 10:00 Pulse Rate 81 07/08/20 10:00 Respiratory Rate 19 07/08/20 10:00 Blood Pressure 140/59 L 07/08/20 10:00 O2 Sat by Pulse Oximetry (%) 93 L 07/08/20 10:00 Constitutional: Calm Eyes: No: Sclera Icterus Cardiovascular: Yes: Regular Rate and Rhythm Respiratory: Yes: Rhonchi (bases bilaterally) ...Auscultate: Yes: Normoactive Bowel Sounds ...Palpate: No: Tenderness ...Percussion: No: Tympanitic Edema: No (No LE edema) Labs: CBC, BMP 07/07/20 05:23 07/07/20 05:23 INR, PTT INR 0.97 (0.83-1.09) 07/06/20 07:30 Problem List - Problems (1) Anemia Assessment/Plan: No overt bleeding High risk for invasive testing at this time Plan per initial consult Awaiting call back from patient's family Code(s): D64.9 - ANEMIA, UNSPECIFIED
--- NOTE | 2020-07-08 11:11 | PN ---
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 CXR b/l opacities. WBC 27, Hgb 6.4, Trops 2's with normal CK, and LA 3.9 Patient AOx1. No chest pain. Appears comfortable at his time. No LE edema. EKG: sinus with inferior and lateral ST depressions - Current Medication List Current Medications: Active Medications Albuterol Sulfate (Ventolin Hfa Inhaler -) 2 puff IH Q4HWA [facility] Last Admin: 07/08/20 09:50 Dose: 2 puff Documented by: Ascorbic Acid (Vitamin C -) 500 mg PO DAILY [facility] Last Admin: 07/08/20 09:49 Dose: 500 mg Documented by: Atorvastatin Calcium (Lipitor -) 40 mg PO HS [facility] Last Admin: 07/07/20 22:32 Dose: 40 mg Documented by: Budesonide/Formoterol Fumarate (Symbicort 160/4.5mcg -) 1 puff IH BID [facility] Last Admin: 07/08/20 09:50 Dose: 1 puff Documented by: Cholecalciferol (Vitamin D3 -) 1,000 unit PO DAILY [facility] Last Admin: 07/08/20 09:49 Dose: 1,000 unit Documented by: Ferrous Sulfate (Feosol -) 325 mg PO DAILY [facility] Last Admin: 07/08/20 09:49 Dose: 325 mg Documented by: Piperacillin Sod/Tazobactam (Sod 3.375 gm/ Dextrose) 50 mls @ 100 mls/hr IVPB Q8H-IV [facility]; Protocol Last Admin: 07/08/20 09:50 Dose: 100 mls/hr Documented by: Amino Acids (Clinimix -) 1,000 mls @ 42 mls/hr IV Q24H [facility] Last Admin: 07/08/20 09:50 Dose: Not Given Documented by: Loratadine (Claritin -) 10 mg PO DAILY PRN PRN Reason: ALLERGIES Multivitamins/Minerals/Vitamin C (Tab-A-Vit -) 1 tab PO DAILY [facility] Last Admin: 07/08/20 09:49 Dose: 1 tab Documented by: Pantoprazole Sodium (Protonix Packets For Oral Suspension -) 40 mg PO DAILY [facility] Potassium Chloride (K-Dur -) 10 meq PO DAILY [facility] Last Admin: 07/08/20 09:49 Dose: 10 meq Documented by: Sertraline HCl (Zoloft -) 75 mg PO DAILY [facility] Last Admin: 07/08/20 09:49 Dose: 75 mg Documented by: - Objective Vital Signs: Vital Signs Temperature 99.5 F 07/08/20 10:00 Pulse Rate 81 07/08/20 10:00 Respiratory Rate 19 07/08/20 10:00 Blood Pressure 140/59 L 07/08/20 10:00 O2 Sat by Pulse Oximetry (%) 93 L 07/08/20 10:00 Constitutional: Yes: No Distress Neck: Yes: Supple Cardiovascular: Yes: Regular Rate and Rhythm, S1, S2 Respiratory: Yes: CTA Bilaterally Gastrointestinal: Yes: Soft Edema: No Labs: CBC, BMP 07/07/20 05:23 07/07/20 05:23 INR, PTT INR 0.97 (0.83-1.09) 07/06/20 07:30 Problem List - Problems (1) Sepsis due to pneumonia Code(s): J18.9 - PNEUMONIA, UNSPECIFIED ORGANISM; A41.9 - SEPSIS, UNSPECIFIED ORGANISM (2) HTN (hypertension) Code(s): I10 - ESSENTIAL (PRIMARY) HYPERTENSION Qualifiers: Hypertension type: essential hypertension Qualified Code(s): I10 - Esse ntial (primary) hypertension (3) Hypercholesterolemia Code(s): E78.00 - PURE HYPERCHOLESTEROLEMIA, UNSPECIFIED (4) Elevated troponin Code(s): R79.89 - OTHER SPECIFIED ABNORMAL FINDINGS OF BLOOD CHEMISTRY Assessment/Plan 89 year old with a pmhx of CAD (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 CXR b/l opacities. WBC 27, Hgb 6.4, Trops 2's with normal CK, and LA 3.9 Patient AOx1. No chest pain. Appears comfortable at his time. No LE edema. EKG: sinus with inferior and lateral ST depressions 1) SOB multifactorial Abx as per primary team Anemia treated with transfusion 2) +troponins/cad Patient with likely cad with troponin leak in setting of demand ischemia. EKG abnormalities likely in setting of significant anemia and infection. Would treat underlying illness/infection and anemia. Keep Hgb over 8 CK normal. Troponins peaked 3.2 and went down to 2s with normal CK. No chest pain. Echo was only done 04/2020 with normal LVEF, mod MR/TR. No need for repeat echo. No further cardiac testing. Aspirin if no contraindication from hematology Statin Will sign off. Conservative cardiac medical management
[2020-07-08] MEDS: PANTOPRAZOLE SOD 40 MG SUSPENSION PACKET PO SCH (11:27)
[2020-07-08 11:30] LABS: BASO % 0.7 % (0-2.0); EOS % 1.8 % (0-4.5); HEMATOCRIT 31.4 % (32.4-45.2); LYMPH % 11.6 % (8-40); MCH 28.6 pg (25.7-33.7); MCHC 31.7 g/dl (32.0-36.0); MEAN CELL VOLUME 90.1 fl (80-96); MEAN PLT VOLUME 8.3 fl (7.5-11.1); MONO % 9.3 % (3.8-10.2); NEUT % 76.6 % (42.8-82.8); PLATELET COUNT 272 K/MM3 (134-434); RBC 3.49 M/mm3 (3.60-5.2); RDW 17.4 % (11.6-15.6); WHITE BLOOD COUNT 8.7 K/mm3 (4.0-10.0)
[2020-07-08 12:01] LABS: ALBUMIN 2.7 g/dl (3.4-5.0); BLOOD UREA NITROGEN 14.1 mg/dL (7-18); CALCIUM 8.3 mg/dL (8.5-10.1); CREATININE 0.9 mg/dL (0.55-1.3); TOT PROT 5.6 g/dl (6.4-8.2)
--- NOTE | 2020-07-08 13:27 | PN ---
Progress Note (short form) - Note Progress Note: alert no complaints Vital Signs Period Temp Pulse Resp BP Sys/Clemens Pulse Ox Last 24 Hr 98.0 F-99.5 F 69-103 19-20 126-164/49-79 92-96 cor-rrr lungs decreased bs at bases abd soft,nt ext no edema CBC, BMP 07/08/20 11:00 07/08/20 11:00 Microbiology 07/07/20 13:20 Urine For Antigen Detection Legionella Antigen - Final 07/07/20 13:20 Urine For Antigen Detection Streptococcus pneumoniae Antigen (M - Final 07/06/20 07:20 Blood - Peripheral Venous Blood Culture - Preliminary NO GROWTH OBTAINED AFTER 48 HOURS, INCUBATION TO CONTINUE FOR 3 DAYS. 07/06/20 07:30 Blood - Peripheral Venous Blood Culture - Preliminary NO GROWTH OBTAINED AFTER 48 HOURS, INCUBATION TO CONTINUE FOR 3 DAYS. 07/07/20 07:55 Urine For Antigen Detection Legionella Antigen - Final 07/07/20 07:55 Urine For Antigen Detection Streptococcus pneumoniae Antigen (M - Final 07/06/20 07:55 Urine - Urine - Catheterized Urine Culture - Final NO GROWTH OBTAINED Active Medications Albuterol Sulfate (Ventolin Hfa Inhaler -) 2 puff IH Q4HWA [facility] Last Admin: 07/08/20 09:50 Dose: 2 puff Documented by: Ascorbic Acid (Vitamin C -) 500 mg PO DAILY [facility] Last Admin: 07/08/20 09:49 Dose: 500 mg Documented by: Atorvastatin Calcium (Lipitor -) 40 mg PO HS [facility] Last Admin: 07/07/20 22:32 Dose: 40 mg Documented by: Budesonide/Formoterol Fumarate (Symbicort 160/4.5mcg -) 1 puff IH BID [facility] Last Admin: 07/08/20 09:50 Dose: 1 puff Documented by: Cholecalciferol (Vitamin D3 -) 1,000 unit PO DAILY [facility] Last Admin: 07/08/20 09:49 Dose: 1,000 unit Documented by: Ferrous Sulfate (Feosol -) 325 mg PO DAILY [facility] Last Admin: 07/08/20 09:49 Dose: 325 mg Documented by: Piperacillin Sod/Tazobactam (Sod 3.375 gm/ Dextrose) 50 mls @ 100 mls/hr IVPB Q8H-IV [facility]; Protocol Last Admin: 07/08/20 09:50 Dose: 100 mls/hr Documented by: Amino Acids (Clinimix -) 1,000 mls @ 42 mls/hr IV Q24H [facility] Last Admin: 07/08/20 09:50 Dose: Not Given Documented by: Loratadine (Claritin -) 10 mg PO DAILY PRN PRN Reason: ALLERGIES Multivitamins/Minerals/Vitamin C (Tab-A-Vit -) 1 tab PO DAILY [facility] Last Admin: 07/08/20 09:49 Dose: 1 tab Documented by: Pantoprazole Sodium (Protonix Packets For Oral Suspension -) 40 mg PO DAILY [facility] Last Admin: 07/08/20 11:27 Dose: 40 mg Documented by: Potassium Chloride (K-Dur -) 10 meq PO DAILY [facility] Last Admin: 07/08/20 09:49 Dose: 10 meq Documented by: Sertraline HCl (Zoloft -) 75 mg PO DAILY [facility] Last Admin: 07/08/20 09:49 Dose: 75 mg Documented by: a/p leukocytosis resolving- aspiration pneumonia suspected- improving on zosyn day #3 anemia- s/p transfusion elevated troponin
--- NOTE | 2020-07-08 18:49 | PN ---
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 CXR b/l opacities. WBC 27, Hgb 6.4, Trops 2's with normal CK, and LA 3.9. 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 No interval CT evidence of acute intracranial pathology is identified. Correlate clinically for further evaluation and follow-up. 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: Dementia Cardio/Vascular: Yes: CAD, HTN, Hyperlipdemia, [place] Pulmonary: Yes: COPD (on 2 liters oxygen) Psych: Yes: Depression - Alcohol/Substance Use Hx Alcohol Use: No - Smoking History Smoking history: Unknown if ever smoked Have you smoked in the past 12 months: No - Social History Usual Living Arrangement: Shelter History of Recent Travel: No Home Medications - Allergies Allergies/Adverse Reactions: Allergies Allergy/AdvReac Type Severity Reaction Status Date / Time No Known Allergies Allergy Verified 07/06/20 06:50 - Home Medications Home Medications: Ambulatory Orders Ascorbic Acid 500 mg PO DAILY 04/25/20 Aspirin [ASA -] 81 mg PO DAILY 04/25/20 Atorvastatin Calcium 40 mg PO DAILY 04/25/20 Cholecalciferol (Vitamin D3) [Vitamin D3] 1,000 unit PO DAILY 04/25/20 Clopidogrel Bisulfate [Clopidogrel] 75 mg PO DAILY 04/25/20 Furosemide [Lasix -] 10 mg PO DAILY 04/25/20 Lisinopril 20 mg PO DAILY 04/25/20 Loratadine 10 mg PO DAILY PRN 04/25/20 Potassium Chloride 10 meq PO DAILY 04/25/20 Sertraline HCl [Zoloft] 75 mg PO DAILY 04/25/20 Albuterol Sulfate Inhaler - [Ventolin HFA Inhaler -] 1 - 2 inh PO Q4H #1 inhaler 05/04/20 Budesonide/Formeterol Fumarate [SYMBICORT 160/4.5mcg -] 1 inh PO BID #1 cannister 05/04/20 Metoprolol Succinate [Toprol Xl] 25 mg PO DAILY #30 tab.er.24h 05/04/20 Albuterol 0.083% Nebulizer Nandini [Ventolin 0.083%] 1 neb NEB Q4H 07/06/20 Ferrous Sulfate [Feosol] 325 mg PO DAILY 07/06/20 Review of Systems - Review of Systems Eyes: reports: No Symptoms HENT: reports: No Symptoms Neck: reports: No Symptoms Cardiovascular: reports: No Symptoms Endocrine: reports: No Symptoms Physical Exam-Neuro Vital Signs: Vital Signs Temperature 98.6 F 07/08/20 14:00 Pulse Rate 74 07/08/20 14:00 Respiratory Rate 19 07/08/20 10:00 Blood Pressure 136/51 L 07/08/20 14:00 O2 Sat by Pulse Oximetry (%) 93 L 07/08/20 10:00 Constitutional: Yes: Well Nourished Neck: Yes: WNL Cardiovascular: Yes: WNL Musculoskeletal: Yes: WNL Edema: No Psychiatric: Yes: WNL, Alert Labs: CBC, BMP 07/07/20 05:23 07/07/20 05:23 INR, PTT INR 0.97 (0.83-1.09) 07/06/20 07:30 - Neuro Exam Level Of Consciousness: Yes: Alert, Oriented to Person Eyes: Yes: PERRL Speech: WNL Cranial Nerves II-XII Intact: Yes Gag: Present DTR's: 1+ Left Bicep, 1+ Right Bicep, 1+ Left Tricep, 1+ Right Tricep, 1+ Left Brachioradialis, 1+ Right Brachioradialis, 1+ Left Achilles, 1+ Right Achilles Babinski: Absent Response to light touch: Normal Motor Strength: 4/5: Left Arm, Right Arm, Left Leg, Right Leg (Diffuse weakness) Gait: Deferred Problem List - Problems (1) Change in mental status Code(s): R41.82 - ALTERED MENTAL STATUS, UNSPECIFIED (2) Malnutrition Code(s): E46 - UNSPECIFIED PROTEIN-CALORIE MALNUTRITION (3) Sepsis due to pneumonia Code(s): J18.9 - PNEUMONIA, UNSPECIFIED ORGANISM; A41.9 - SEPSIS, UNSPECIFIED ORGANISM (4) COPD (chronic obstructive pulmonary disease) Code(s): J44.9 - CHRONIC OBSTRUCTIVE PULMONARY DISEASE, UNSPECIFIED Qualifiers: (5) Sepsis Code(s): A41.9 - SEPSIS, UNSPECIFIED ORGANISM Assessment/Plan 89 year old with a pmhx of 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 Pt has multiple comorbiditis, sepsis , acute blood loss anemia ; AMS due to metabolic / infectious encephalopathy , she is at baseline and doing better CT shows chronic cortical infarcts , presumably embolic though at this juncture/age /frail condition would manage conservatively with ASA/statin / BP optimization. drop in H/H, so AP on hold and can restart when HEME status stab le. call back PRN DR CALHOUN
[2020-07-08] MEDS ORDERED: PNEUMOC 13-VAL CONJ-DIP CRM/PF 0.5 ML DISP.SYRIN IM ONE (19:00)
[2020-07-08] MEDS: ATORVASTATIN CA 40 MG TABLET (FP) PO SCH (21:47)
[2020-07-09] MEDS ORDERED: PIPERACILLIN/TAZOBACTAM 3.375 GM VIAL IVPB ONE ×3 (03:37→17:22)
[2020-07-09] MEDS ORDERED: DEXTROSE 5%-WATER - 50 ML IVPB ONE ×3 (03:38→17:23)
[2020-07-09] MEDS: PIPERACILLIN/TAZOB 3.375 GM 3.375 GM in DEXTROSE 5%-WATER - 50 ML IVPB SCH ×3 (03:40→17:55)
[2020-07-09] MEDS: ALBUTEROL SO4 HFA INHALER IH SCH ×3 (06:10→22:00)
--- NOTE | 2020-07-09 07:37 | PN ---
Progress Note, Physician Chief Complaint: AMS Pneumonia History of Present Illness: NAD alert but confused - Current Medication List Current Medications: Active Medications Albuterol Sulfate (Ventolin Hfa Inhaler -) 2 puff IH Q4HWA [facility] Last Admin: 07/09/20 06:10 Dose: 2 puff Documented by: Ascorbic Acid (Vitamin C -) 500 mg PO DAILY [facility] Last Admin: 07/08/20 09:49 Dose: 500 mg Documented by: Atorvastatin Calcium (Lipitor -) 40 mg PO HS [facility] Last Admin: 07/08/20 21:47 Dose: 40 mg Documented by: Budesonide/Formoterol Fumarate (Symbicort 160/4.5mcg -) 1 puff IH BID [facility] Last Admin: 07/08/20 21:48 Dose: 1 puff Documented by: Cholecalciferol (Vitamin D3 -) 1,000 unit PO DAILY [facility] Last Admin: 07/08/20 09:49 Dose: 1,000 unit Documented by: Ferrous Sulfate (Feosol -) 325 mg PO DAILY [facility] Last Admin: 07/08/20 09:49 Dose: 325 mg Documented by: Piperacillin Sod/Tazobactam (Sod 3.375 gm/ Dextrose) 50 mls @ 100 mls/hr IVPB Q8H-IV [facility]; Protocol Last Admin: 07/09/20 03:40 Dose: 100 mls/hr Documented by: Amino Acids (Clinimix -) 1,000 mls @ 42 mls/hr IV Q24H [facility] Last Admin: 07/08/20 09:50 Dose: Not Given Documented by: Loratadine (Claritin -) 10 mg PO DAILY PRN PRN Reason: ALLERGIES Multivitamins/Minerals/Vitamin C (Tab-A-Vit -) 1 tab PO DAILY [facility] Last Admin: 07/08/20 09:49 Dose: 1 tab Documented by: Pantoprazole Sodium (Protonix Packets For Oral Suspension -) 40 mg PO DAILY [facility] Last Admin: 07/08/20 11:27 Dose: 40 mg Documented by: Potassium Chloride (K-Dur -) 10 meq PO DAILY [facility] Last Admin: 07/08/20 09:49 Dose: 10 meq Documented by: Sertraline HCl (Zoloft -) 75 mg PO DAILY [facility] Last Admin: 07/08/20 09:49 Dose: 75 mg Documented by: - Objective Vital Signs: Vital Signs Temperature 99.1 F 07/09/20 05:31 Pulse Rate 75 07/09/20 05:31 Respiratory Rate 20 07/09/20 05:31 Blood Pressure 155/66 07/09/20 05:31 O2 Sat by Pulse Oximetry (%) 93 L 07/08/20 22:00 Constitutional: Yes: No Distress, Calm, Cachectic Cardiovascular: Yes: Regular Rate and Rhythm Respiratory: Yes: Regular, CTA Bilaterally Gastrointestinal: Yes: Normal Bowel Sounds, Soft Genitourinary: Yes: Incontinence Musculoskeletal: Yes: Muscle Weakness Extremities: Yes: Other (generalized atrophy) Edema: No Peripheral Pulses WNL: Yes Neurological: Yes: Alert, Confusion Psychiatric: Yes: Alert Labs: CBC, BMP 07/08/20 11:00 07/08/20 11:00 INR, PTT INR 0.97 (0.83-1.09) 07/06/20 07:30 Problem List - Problems (1) Pneumonia Assessment/Plan: -IV abx -ID consult -Speech therapy -MBS to r/o aspiration -Pulmonary consult -O2 to keep spo2>90% -Bronchodilators -COVID 19 PCR negative -afebrile Problems reviewed: Yes Code(s): J18.9 - PNEUMONIA, UNSPECIFIED ORGANISM (2) Acute and chronic respiratory failure with hypoxia Problems reviewed: Yes Code(s): J96.21 - ACUTE AND CHRONIC RESPIRATORY FAILURE WITH HYPOXIA (3) Anemia Assessment/Plan: -GLADYS -Injectafer once -Ferrous sulfate po daily -monitor trend -Transfuse only if hg<7.0 to avoid fluid overload Problems reviewed: Yes Code(s): D64.9 - ANEMIA, UNSPECIFIED (4) Change in mental status Problems reviewed: Yes Code(s): R41.82 - ALTERED MENTAL STATUS, UNSPECIFIED (5) Hypokalemia Assessment/Plan: -2/2 to decreased PO intake -KCL 40 meq po once -KCl 10 meq x 3 Problems reviewed: Yes Code(s): E87.6 - HYPOKALEMIA (6) Malnutrition Assessment/Plan: -multivitamin -prosource -ensure Problems reviewed: Yes Code(s): E46 - UNSPECIFIED PROTEIN-CALORIE MALNUTRITION (7) Sepsis due to pneumonia Problems reviewed: Yes Code(s): J18.9 - PNEUMONIA, UNSPECIFIED ORGANISM; A41.9 - SEPSIS, UNSPECIFIED ORGANISM (8) Metabolic encephalopathy Problems reviewed: Yes Code(s): G93.41 - METABOLIC ENCEPHALOPATHY Assessment/Plan See problem list PPI PT Palliative care
[2020-07-09 08:06] LABS: BASO % 0.5 % (0-2.0); EOS % 2.9 % (0-4.5); HEMATOCRIT 31.9 % (32.4-45.2); HEMOGLOBIN 10.3 GM/dL (10.7-15.3); MCH 29.1 pg (25.7-33.7); MCHC 32.2 g/dl (32.0-36.0); MEAN CELL VOLUME 90.5 fl (80-96); MEAN PLT VOLUME 8.7 fl (7.5-11.1); MONO % 10.7 % (3.8-10.2); NEUT % 74.9 % (42.8-82.8); PLATELET COUNT 251 K/MM3 (134-434); RBC 3.52 M/mm3 (3.60-5.2); WHITE BLOOD COUNT 8.3 K/mm3 (4.0-10.0)
[2020-07-09 08:19] LABS: ALBUMIN 2.6 g/dl (3.4-5.0); BLOOD UREA NITROGEN 10.7 mg/dL (7-18); CALCIUM 8.1 mg/dL (8.5-10.1); CREATININE 0.6 mg/dL (0.55-1.3); POTASSIUM 3.1 mmol/L (3.5-5.1)
[2020-07-09 08:21] LABS: BILIRUBIN,TOTAL 1.6 mg/dL (0.2-1); TOT PROT 5.6 g/dl (6.4-8.2)
[2020-07-09] MEDS: SERTRALINE HCL 25 MG TABLET (FP) PO SCH (09:49)
[2020-07-09] MEDS: POTASSIUM CHLORIDE TABS 10 MEQ TABLET.ER (FP) PO SCH (09:49)
[2020-07-09] MEDS: MULTIVITAMINS (DAILY MVI) TABLET (FP) PO SCH (09:49)
[2020-07-09] MEDS: PANTOPRAZOLE SOD 40 MG SUSPENSION PACKET PO SCH (09:50)
[2020-07-09] MEDS: FERROUS SO4 325 MG TABLET (FP) PO SCH (09:50)
[2020-07-09] MEDS: CHOLECALCIFEROL (VIT D3) 1,000 UNIT (25 MCG) TABLET PO SCH (09:50)
[2020-07-09] MEDS: ASCORBIC ACID 500 MG TABLET (FP) PO SCH (09:50)
[2020-07-09] MEDS: AMINO ACIDS 4.25%/D5W 1,000 ML IV SCH (09:50)
[2020-07-09] MEDS: BUDESONIDE/FORMETEROL FUMARATE 160/4.5 mcg INHALER IH SCH ×2 (09:51→21:14)
--- NOTE | 2020-07-09 13:58 | PN ---
Progress Note (short form) - Note Progress Note: Resting in NAD. Awake but confused. Intake & Output 07/06/20 07/07/20 07/08/20 07/09/20 23:59 23:59 23:59 23:59 Intake Total 1045 2130 100 110 Output Total 30 1400 2350 450 Balance 1015 940 -8117 -963 Weight 93 lb 93 lb Last Vital Signs Temp Pulse Resp BP Pulse Ox 99.1 F 81 20 149/69 94 L 07/09/20 08:36 07/09/20 08:36 07/09/20 08:39 07/09/20 08:36 07/09/20 08:39 Active Medications Albuterol Sulfate (Ventolin Hfa Inhaler -) 2 puff IH Q4HWA [facility] Last Admin: 07/09/20 06:10 Dose: 2 puff Documented by: Ascorbic Acid (Vitamin C -) 500 mg PO DAILY [facility] Last Admin: 07/09/20 09:50 Dose: 500 mg Documented by: Atorvastatin Calcium (Lipitor -) 40 mg PO HS [facility] Last Admin: 07/08/20 21:47 Dose: 40 mg Documented by: Budesonide/Formoterol Fumarate (Symbicort 160/4.5mcg -) 1 puff IH BID [facility] Last Admin: 07/09/20 09:51 Dose: 1 puff Documented by: Cholecalciferol (Vitamin D3 -) 1,000 unit PO DAILY [facility] Last Admin: 07/09/20 09:50 Dose: 1,000 unit Documented by: Ferrous Sulfate (Feosol -) 325 mg PO DAILY [facility] Last Admin: 07/09/20 09:50 Dose: 325 mg Documented by: Piperacillin Sod/Tazobactam (Sod 3.375 gm/ Dextrose) 50 mls @ 100 mls/hr IVPB Q8H-IV [facility]; Protocol Last Admin: 07/09/20 09:49 Dose: 100 mls/hr Documented by: Amino Acids (Clinimix -) 1,000 mls @ 42 mls/hr IV Q24H [facility] Last Admin: 07/09/20 09:50 Dose: Not Given Documented by: Loratadine (Claritin -) 10 mg PO DAILY PRN PRN Reason: ALLERGIES Multivitamins/Minerals/Vitamin C (Tab-A-Vit -) 1 tab PO DAILY [facility] Last Admin: 07/09/20 09:49 Dose: 1 tab Documented by: Pantoprazole Sodium (Protonix Packets For Oral Suspension -) 40 mg PO DAILY [facility] Last Admin: 07/09/20 09:50 Dose: 40 mg Documented by: Potassium Chloride (K-Dur -) 10 meq PO DAILY [facility] Last Admin: 07/09/20 09:49 Dose: 10 meq Documented by: Sertraline HCl (Zoloft -) 75 mg PO DAILY [facility] Last Admin: 07/09/20 09:49 Dose: 75 mg Documented by: Constitutional: Yes: Cachectic, confused Eyes: Yes: WNL HENT: Yes: WNL Neck: Yes: WNL Cardiovascular: Yes: Regular Rate and Rhythm, S1, S2 Respiratory: Yes: Diminished Gastrointestinal: Yes: Normal Bowel Sounds, Soft Extremities: Yes: WNL Edema: No Labs: Laboratory Results - last 24 hr 07/06/20 07/09/20 07/09/20 08:55 05:44 05:44 WBC 8.3 RBC 3.52 L Hgb 10.3 L Hct 31.9 L MCV 90.5 MCH 29.1 MCHC 32.2 RDW 17.0 H Plt Count 251 MPV 8.7 Absolute Neuts (auto) 6.2 Neutrophils % 74.9 Lymphocytes % 11.0 Monocytes % 10.7 H Eosinophils % 2.9 Basophils % 0.5 Nucleated RBC % 0 Sodium 143 Potassium 3.1 L Chloride 105 Carbon Dioxide 27 Anion Gap 11 BUN 10.7 Creatinine 0.6 Est GFR (CKD-EPI)AfAm 93.66 Est GFR (CKD-EPI)NonAf 80.81 Random Glucose 83 Calcium 8.1 L Total Bilirubin 1.6 H AST 18 ALT 25 Alkaline Phosphatase 66 Total Protein 5.6 L Albumin 2.6 L Blood Type A POSITIVE Antibody Screen Negative Crossmatch See Detail Problem List - Problems (1) Anemia Code(s): D64.9 - ANEMIA, UNSPECIFIED (2) COPD (chronic obstructive pulmonary disease) Code(s): J44.9 - CHRONIC OBSTRUCTIVE PULMONARY DISEASE, UNSPECIFIED Qualifiers: (3) HTN (hypertension) Code(s): I10 - ESSENTIAL (PRIMARY) HYPERTENSION Qualifiers: Hypertension type: essential hypertension Qualified Code(s): I10 - Essential (primary) hypertension (4) Hypercholesterolemia Code(s): E78.00 - PURE HYPERCHOLESTEROLEMIA, UNSPECIFIED (5) Acute respiratory failure with hypoxia and hypercarbia Code(s): J96.01 - ACUTE RESPIRATORY FAILURE WITH HYPOXIA; J96.02 - ACUTE RESPIRATORY FAILURE WITH HYPERCAPNIA (6) COPD exacerbation Code(s): J44.1 - CHRONIC OBSTRUCTIVE PULMONARY DISEASE W (ACUTE) EXACERBATION (7) Elevated troponin Code(s): R79.89 - OTHER SPECIFIED ABNORMAL FINDINGS OF BLOOD CHEMISTRY (8) Acute and chronic respiratory failure with hypoxia Code(s): J96.21 - ACUTE AND CHRONIC RESPIRATORY FAILURE WITH HYPOXIA Assessment/Plan Acute on Chronic Hypoxic Respiratory Failure improving Pneumonia likely Aspiration COPD CAD +Troponins likely Demand Ischemia HTN Hyperlipidemia Dementia - ABX coverage per ID - O2 to keep SpO2 >905 - inhaled bronchodilators - Aspiration precautions - can monitor off steriods at this time - DVT prophylaxis Dr Fields
[2020-07-09] MEDS ORDERED: POTASSIUM CHLORIDE ORAL LIQUID 20 MEQ/15 ML PO ONE (17:43)
--- NOTE | 2020-07-09 17:49 | CONSULT ---
Consult Consult Specialty:: Nephrology Reason for Consultation:: hypokalemia - History of Present Illness Chief Complaint: shortness of breath History of Present Illness: Pt is an 89 year old female with pmhx of cad, copd, asthma, htn, hld, depression, dementia who presents with shortness of breath. She is confused and unable to give history. She denies chest pain or palpitations. I was called to evaluate her for hypokalemia. She is on potassium supplements but spit the pills up. She has not had any diarrhea or vomiting. - History Source History Provided By: Medical Record - Past Medical History SHELVER: Yes: Dementia Cardio/Vascular: Yes: CAD, HTN, Hyperlipdemia, NM Pulmonary: Yes: COPD (on 2 liters oxygen) Psych: Yes: Depression - Alcohol/Substance Use Hx Alcohol Use: No - Smoking History Smoking history: Unknown if ever smoked Have you smoked in the past 12 months: No - Social History Usual Living Arrangement: Residential History of Recent Travel: No Home Medications - Allergies Allergies/Adverse Reactions: Allergies Allergy/AdvReac Type Severity Reaction Status Date / Time No Known Allergies Allergy Verified 07/06/20 06:50 - Home Medications Home Medications: Ambulatory Orders Ascorbic Acid 500 mg PO DAILY 04/25/20 Aspirin [ASA -] 81 mg PO DAILY 04/25/20 Atorvastatin Calcium 40 mg PO DAILY 04/25/20 Cholecalciferol (Vitamin D3) [Vitamin D3] 1,000 unit PO DAILY 04/25/20 Clopidogrel Bisulfate [Clopidogrel] 75 mg PO DAILY 04/25/20 Furosemide [Lasix -] 10 mg PO DAILY 04/25/20 Lisinopril 20 mg PO DAILY 04/25/20 Loratadine 10 mg PO DAILY PRN 04/25/20 Potassium Chloride 10 meq PO DAILY 04/25/20 Sertraline HCl [Zoloft] 75 mg PO DAILY 04/25/20 Albuterol Sulfate Inhaler - [Ventolin HFA Inhaler -] 1 - 2 inh PO Q4H #1 inhaler 05/04/20 Budesonide/Formeterol Fumarate [SYMBICORT 160/4.5mcg -] 1 inh PO BID #1 cannister 05/04/20 Metoprolol Succinate [Toprol Xl] 25 mg PO DAILY #30 tab.er.24h 05/04/20 Albuterol 0.083% Nebulizer Nandini [Ventolin 0.083%] 1 neb NEB Q4H 07/06/20 Ferrous Sulfate [Feosol] 325 mg PO DAILY 07/06/20 Family Medical History Family History: Unable to Obtain Review of Systems Unable to obtain ROS, reason: confused - Review of Systems Constitutional: reports: No Symptoms Eyes: reports: No Symptoms HENT: reports: No Symptoms Neck: reports: No Symptoms Cardiovascular: reports: No Symptoms Respiratory: reports: No Symptoms Gastrointestinal: reports: No Symptoms Genitourinary: reports: No Symptoms Musculoskeletal: reports: No Symptoms Integumentary: reports: No Symptoms Neurological: reports: No Symptoms Endocrine: reports: No Symptoms Physical Exam Vital Signs: Vital Signs Temperature 98.4 F 07/09/20 14:05 Pulse Rate 82 07/09/20 14:05 Respiratory Rate 18 07/09/20 14:05 Blood Pressure 133/86 07/09/20 14:05 O2 Sat by Pulse Oximetry (%) 94 L 07/09/20 08:39 Constitutional: Yes: Calm Eyes: Yes: Conjunctiva Clear HENT: Yes: Atraumatic Cardiovascular: Yes: S1, S2 Respiratory: Yes: CTA Bilaterally Gastrointestinal: Yes: Soft Renal/: Yes: [place] Present Musculoskeletal: Yes: WNL Edema: No Integumentary: Yes: WNL Neurological: Yes: Confusion Labs: CBC, BMP 07/09/20 05:44 07/09/20 05:44 Imaging - Results Cat Scan: Report Reviewed Problem List - Problems (1) Hypokalemia Code(s): E87.6 - HYPOKALEMIA Assessment/Plan Current Medications Generic Name Dose Route Start Last Admin Trade Name Manuel PRN Reason Stop Dose Admin Albuterol Sulfate 2 puff 07/06/20 14:00 07/09/20 06:10 Ventolin Hfa Inhaler - IH 2 puff Q4HWA [facility] Administration Ascorbic Acid 500 mg 07/07/20 10:00 07/09/20 09:50 Vitamin C - PO 500 mg DAILY [facility] Administration Atorvastatin Calcium 40 mg 07/07/20 22:00 07/08/20 21:47 Lipitor - PO 40 mg HS [facility] Administration Budesonide/Formoterol Fumarate 1 puff 07/06/20 22:00 07/09/20 09:51 Symbicort 160/4.5mcg - IH 1 puff BID [facility] Administration Cholecalciferol 1,000 unit 07/07/20 10:00 07/09/20 09:50 Vitamin D3 - PO 1,000 unit DAILY [facility] Administration Ferrous Sulfate 325 mg 07/07/20 10:00 07/09/20 09:50 Feosol - PO 325 mg DAILY [facility] Administration Piperacillin Sod/Tazobactam 50 mls @ 100 mls/hr 07/06/20 18:00 07/09/20 09:49 Sod 3.375 gm/ Dextrose IVPB 100 mls/hr Q8H-IV [facility] Administration Protocol Amino Acids 1,000 mls @ 42 mls/hr 07/08/20 09:15 07/09/20 09:50 Clinimix - IV Not Given Q24H [facility] Potassium Chloride 10 meq in 100 mls @ 100 mls/hr 07/09/20 17:45 Potassium Chloride 10 Meq Premix Ivpb - IVPB 07/09/20 20:44 Q60M [facility] Loratadine 10 mg 07/06/20 12:11 Claritin - PO DAILY PRN ALLERGIES Multivitamins/Minerals/Vitamin C 1 tab 07/06/20 12:00 07/09/20 09:49 Tab-A-Vit - PO 1 tab DAILY [facility] Administration Pantoprazole Sodium 40 mg 07/08/20 11:15 07/09/20 09:50 Protonix Packets For Oral Suspension - PO 40 mg DAILY [facility] Administration Potassium Chloride 10 meq 07/07/20 10:00 07/09/20 09:49 K-Dur - PO 10 meq DAILY [facility] Administration Sertraline HCl 75 mg 07/07/20 10:00 07/09/20 09:49 Zoloft - PO 75 mg DAILY [facility] Administration Impression 1. hypokalemia 2. dementia 3. asthma 4. hld 5. htn Plan - replace potassium - check mag - repeat labs in am - hold clinimix for tonight
[2020-07-09] MEDS: KCL 10 MEQ IVPB 10 MEQ/100 ML INFUS.BAG IVPB SCH ×3 (18:18→23:16)
[2020-07-09] MEDS: ATORVASTATIN CA 40 MG TABLET (FP) PO SCH (21:14)
[2020-07-10] MEDS ORDERED: PIPERACILLIN/TAZOBACTAM 3.375 GM VIAL IVPB ONE ×3 (01:05→16:39)
[2020-07-10] MEDS ORDERED: DEXTROSE 5%-WATER - 50 ML IVPB ONE ×3 (01:06→16:39)
[2020-07-10] MEDS: PIPERACILLIN/TAZOB 3.375 GM 3.375 GM in DEXTROSE 5%-WATER - 50 ML IVPB SCH ×3 (01:31→17:06)
[2020-07-10 07:51] LABS: ALBUMIN 2.5 g/dl (3.4-5.0); BILIRUBIN,TOTAL 0.8 mg/dL (0.2-1); BLOOD UREA NITROGEN 8.6 mg/dL (7-18); CALCIUM 8.3 mg/dL (8.5-10.1); CREATININE 0.6 mg/dL (0.55-1.3); MAGNESIUM 1.9 mg/dL (1.8-2.4); PHOSPHOROUS 2.5 mg/dL (2.5-4.9); POTASSIUM 3.8 mmol/L (3.5-5.1); TOT PROT 5.5 g/dl (6.4-8.2)
[2020-07-10] MEDS ORDERED: PT OWN MED DRAWER 7, Y5N ONE (08:28)
--- NOTE | 2020-07-10 08:36 | PN ---
Progress Note, Physician Chief Complaint: AMS Pneumonia History of Present Illness: NAD alert but confused - Current Medication List Current Medications: Active Medications Albuterol Sulfate (Ventolin Hfa Inhaler -) 2 puff IH Q4HWA [facility] Last Admin: 07/09/20 22:00 Dose: 2 puff Documented by: Ascorbic Acid (Vitamin C -) 500 mg PO DAILY [facility] Last Admin: 07/09/20 09:50 Dose: 500 mg Documented by: Atorvastatin Calcium (Lipitor -) 40 mg PO HS [facility] Last Admin: 07/09/20 21:14 Dose: Not Given Documented by: Budesonide/Formoterol Fumarate (Symbicort 160/4.5mcg -) 1 puff IH BID [facility] Last Admin: 07/09/20 21:14 Dose: 1 puff Documented by: Cholecalciferol (Vitamin D3 -) 1,000 unit PO DAILY [facility] Last Admin: 07/09/20 09:50 Dose: 1,000 unit Documented by: Ferrous Sulfate (Feosol -) 325 mg PO DAILY [facility] Last Admin: 07/09/20 09:50 Dose: 325 mg Documented by: Piperacillin Sod/Tazobactam (Sod 3.375 gm/ Dextrose) 50 mls @ 100 mls/hr IVPB Q8H-IV [facility]; Protocol Last Admin: 07/10/20 01:31 Dose: 100 mls/hr Documented by: Loratadine (Claritin -) 10 mg PO DAILY PRN PRN Reason: ALLERGIES Multivitamins/Minerals/Vitamin C (Tab-A-Vit -) 1 tab PO DAILY [facility] Last Admin: 07/09/20 09:49 Dose: 1 tab Documented by: Pantoprazole Sodium (Protonix Packets For Oral Suspension -) 40 mg PO DAILY [facility] Last Admin: 07/09/20 09:50 Dose: 40 mg Documented by: Potassium Chloride (K-Dur -) 10 meq PO DAILY [facility] Last Admin: 07/09/20 09:49 Dose: 10 meq Documented by: Sertraline HCl (Zoloft -) 75 mg PO DAILY [facility] Last Admin: 07/09/20 09:49 Dose: 75 mg Documented by: - Objective Vital Signs: Vital Signs Temperature 99.1 F 07/10/20 08:18 Pulse Rate 71 07/10/20 08:18 Respiratory Rate 20 07/10/20 08:19 Blood Pressure 152/77 07/10/20 08:18 O2 Sat by Pulse Oximetry (%) 94 L 07/10/20 08:19 Constitutional: Yes: No Distress, Calm, Cachectic Cardiovascular: Yes: Regular Rate and Rhythm Respiratory: Yes: Regular, CTA Bilaterally Gastrointestinal: Yes: Normal Bowel Sounds, Soft Genitourinary: Yes: Incontinence Musculoskeletal: Yes: Muscle Weakness Edema: No Peripheral Pulses WNL: Yes Neurological: Yes: Alert, Confusion Psychiatric: Yes: Alert Labs: CBC, BMP 07/09/20 05:44 07/10/20 05:40 INR, PTT INR 0.97 (0.83-1.09) 07/06/20 07:30 Problem List - Problems (1) Acute and chronic respiratory failure with hypoxia Problems reviewed: Yes Code(s): J96.21 - ACUTE AND CHRONIC RESPIRATORY FAILURE WITH HYPOXIA (2) Anemia Assessment/Plan: -GLADYS -Injectafer once -Ferrous sulfate po daily -monitor trend -Transfuse only if hg<7.0 to avoid fluid overload Problems reviewed: Yes Code(s): D64.9 - ANEMIA, UNSPECIFIED (3) Change in mental status Problems reviewed: Yes Code(s): R41.82 - ALTERED MENTAL STATUS, UNSPECIFIED (4) Hypokalemia Assessment/Plan: -2/2 to decreased PO intake -resolved -monitor trend Problems reviewed: Yes Code(s): E87.6 - HYPOKALEMIA (5) Malnutrition Assessment/Plan: -multivitamin -prosource -ensure Problems reviewed: Yes Code(s): E46 - UNSPECIFIED PROTEIN-CALORIE MALNUTRITION (6) Metabolic encephalopathy Problems reviewed: Yes Code(s): G93.41 - METABOLIC ENCEPHALOPATHY (7) Pneumonia Assessment/Plan: -IV abx -ID consult -Speech therapy -MBS to r/o aspiration -Pulmonary consult -O2 to keep spo2>90% -Bronchodilators -COVID 19 PCR negative -afebrile Problems reviewed: Yes Code(s): J18.9 - PNEUMONIA, UNSPECIFIED ORGANISM Assessment/Plan See problem list
[2020-07-10] MEDS: PANTOPRAZOLE SOD 40 MG SUSPENSION PACKET PO SCH (09:17)
[2020-07-10] MEDS: MULTIVITAMINS (DAILY MVI) TABLET (FP) PO SCH (09:18)
[2020-07-10] MEDS: FERROUS SO4 325 MG TABLET (FP) PO SCH (09:18)
[2020-07-10] MEDS: POTASSIUM CHLORIDE TABS 10 MEQ TABLET.ER (FP) PO SCH (09:18)
[2020-07-10] MEDS: ASCORBIC ACID 500 MG TABLET (FP) PO SCH (09:18)
[2020-07-10] MEDS: SERTRALINE HCL 25 MG TABLET (FP) PO SCH (09:18)
[2020-07-10] MEDS: CHOLECALCIFEROL (VIT D3) 1,000 UNIT (25 MCG) TABLET PO SCH (09:19)
[2020-07-10] MEDS: BUDESONIDE/FORMETEROL FUMARATE 160/4.5 mcg INHALER IH SCH ×2 (09:20→22:26)
--- NOTE | 2020-07-10 12:48 | PN ---
Progress Note, Physician History of Present Illness: Pt seen and examined. No change in status. - Current Medication List Current Medications: Active Medications Albuterol Sulfate (Ventolin Hfa Inhaler -) 2 puff IH Q4HWA [facility] Last Admin: 07/09/20 22:00 Dose: 2 puff Documented by: Ascorbic Acid (Vitamin C -) 500 mg PO DAILY [facility] Last Admin: 07/10/20 09:18 Dose: 500 mg Documented by: Atorvastatin Calcium (Lipitor -) 40 mg PO HS [facility] Last Admin: 07/09/20 21:14 Dose: Not Given Documented by: Budesonide/Formoterol Fumarate (Symbicort 160/4.5mcg -) 1 puff IH BID [facility] Last Admin: 07/10/20 09:20 Dose: 1 puff Documented by: Cholecalciferol (Vitamin D3 -) 1,000 unit PO DAILY [facility] Last Admin: 07/10/20 09:19 Dose: 1,000 unit Documented by: Ferrous Sulfate (Feosol -) 325 mg PO DAILY [facility] Last Admin: 07/10/20 09:18 Dose: 325 mg Documented by: Piperacillin Sod/Tazobactam (Sod 3.375 gm/ Dextrose) 50 mls @ 100 mls/hr IVPB Q8H-IV [facility]; Protocol Last Admin: 07/10/20 09:17 Dose: 100 mls/hr Documented by: Loratadine (Claritin -) 10 mg PO DAILY PRN PRN Reason: ALLERGIES Multivitamins/Minerals/Vitamin C (Tab-A-Vit -) 1 tab PO DAILY [facility] Last Admin: 07/10/20 09:18 Dose: 1 tab Documented by: Pantoprazole Sodium (Protonix Packets For Oral Suspension -) 40 mg PO DAILY [facility] Last Admin: 07/10/20 09:17 Dose: 40 mg Documented by: Potassium Chloride (K-Dur -) 10 meq PO DAILY [facility] Last Admin: 07/10/20 09:18 Dose: 10 meq Documented by: Sertraline HCl (Zoloft -) 75 mg PO DAILY [facility] Last Admin: 07/10/20 09:18 Dose: 75 mg Documented by: - Objective Vital Signs: Vital Signs Temperature 99.1 F 07/10/20 08:18 Pulse Rate 71 07/10/20 08:18 Respiratory Rate 20 07/10/20 08:19 Blood Pressure 152/77 07/10/20 08:18 O2 Sat by Pulse Oximetry (%) 94 L 07/10/20 08:19 Constitutional: Yes: Calm Eyes: Yes: Conjunctiva Clear HENT: Yes: Atraumatic Neck: Yes: Supple Cardiovascular: Yes: S1, S2 Respiratory: Yes: CTA Bilaterally Gastrointestinal: Yes: Soft Genitourinary: Yes: [place] Present Edema: No Neurological: Yes: Confusion Labs: CBC, BMP 07/09/20 05:44 07/10/20 05:40 INR, PTT INR 0.97 (0.83-1.09) 07/06/20 07:30 Problem List - Problems (1) Hypokalemia Code(s): E87.6 - HYPOKALEMIA Assessment/Plan Current Medications Generic Name Dose Route Start Last Admin Trade Name Freq PRN Reason Stop Dose Admin Albuterol Sulfate 2 puff 07/06/20 14:00 07/09/20 22:00 Ventolin Hfa Inhaler - IH 2 puff Q4HWA [facility] Administration Ascorbic Acid 500 mg 07/07/20 10:00 07/10/20 09:18 Vitamin C - PO 500 mg DAILY [facility] Administration Atorvastatin Calcium 40 mg 07/07/20 22:00 07/09/20 21:14 Lipitor - PO Not Given HS [facility] Budesonide/Formoterol Fumarate 1 puff 07/06/20 22:00 07/10/20 09:20 Symbicort 160/4.5mcg - IH 1 puff BID [facility] Administration Cholecalciferol 1,000 unit 07/07/20 10:00 07/10/20 09:19 Vitamin D3 - PO 1,000 unit DAILY [facility] Administration Ferrous Sulfate 325 mg 07/07/20 10:00 07/10/20 09:18 Feosol - PO 325 mg DAILY [facility] Administration Piperacillin Sod/Tazobactam 50 mls @ 100 mls/hr 07/06/20 18:00 07/10/20 09:17 Sod 3.375 gm/ Dextrose IVPB 100 mls/hr Q8H-IV [facility] Administration Protocol Loratadine 10 mg 07/06/20 12:11 Claritin - PO DAILY PRN ALLERGIES Multivitamins/Minerals/Vitamin C 1 tab 07/06/20 12:00 07/10/20 09:18 Tab-A-Vit - PO 1 tab DAILY [facility] Administration Pantoprazole Sodium 40 mg 07/08/20 11:15 07/10/20 09:17 Protonix Packets For Oral Suspension - PO 40 mg DAILY [facility] Administration Potassium Chloride 10 meq 07/07/20 10:00 07/10/20 09:18 K-Dur - PO 10 meq DAILY [facility] Administration Sertraline HCl 75 mg 07/07/20 10:00 07/10/20 09:18 Zoloft - PO 75 mg DAILY [facility] Administration Laboratory Tests 07/10/20 05:40 Potassium 3.8 Magnesium 1.9 Impression 1. hypokalemia 2. dementia 3. asthma 4. hld 5. htn Plan - potassium improved - mag stable - monitor lytes - encourage po intake - clinimix on hold for now, if restarted can add potassium to it
--- NOTE | 2020-07-10 13:43 | PN ---
Progress Note (short form) - Note Progress Note: Resting in NAD. Awake but confused. Clinically unchanged. No acute events overnight. Intake & Output 07/07/20 07/08/20 07/09/20 07/10/20 23:59 23:59 23:59 23:59 Intake Total 2130 100 650 100 Output Total 1400 2350 600 300 Balance 730 -2250 50 -200 Weight 93 lb Last Vital Signs Temp Pulse Resp BP Pulse Ox 99.1 F 71 20 152/77 94 L 07/10/20 08:18 07/10/20 08:18 07/10/20 08:19 07/10/20 08:18 07/10/20 08:19 Active Medications Albuterol Sulfate (Ventolin Hfa Inhaler -) 2 puff IH Q4HWA [facility] Last Admin: 07/09/20 22:00 Dose: 2 puff Documented by: Ascorbic Acid (Vitamin C -) 500 mg PO DAILY [facility] Last Admin: 07/10/20 09:18 Dose: 500 mg Documented by: Atorvastatin Calcium (Lipitor -) 40 mg PO HS [facility] Last Admin: 07/09/20 21:14 Dose: Not Given Documented by: Budesonide/Formoterol Fumarate (Symbicort 160/4.5mcg -) 1 puff IH BID [facility] Last Admin: 07/10/20 09:20 Dose: 1 puff Documented by: Cholecalciferol (Vitamin D3 -) 1,000 unit PO DAILY [facility] Last Admin: 07/10/20 09:19 Dose: 1,000 unit Documented by: Ferrous Sulfate (Feosol -) 325 mg PO DAILY [facility] Last Admin: 07/10/20 09:18 Dose: 325 mg Documented by: Piperacillin Sod/Tazobactam (Sod 3.375 gm/ Dextrose) 50 mls @ 100 mls/hr IVPB Q8H-IV [facility]; Protocol Last Admin: 07/10/20 09:17 Dose: 100 mls/hr Documented by: Loratadine (Claritin -) 10 mg PO DAILY PRN PRN Reason: ALLERGIES Multivitamins/Minerals/Vitamin C (Tab-A-Vit -) 1 tab PO DAILY [facility] Last Admin: 07/10/20 09:18 Dose: 1 tab Documented by: Pantoprazole Sodium (Protonix Packets For Oral Suspension -) 40 mg PO DAILY [facility] Last Admin: 07/10/20 09:17 Dose: 40 mg Documented by: Potassium Chloride (K-Dur -) 10 meq PO DAILY [facility] Last Admin: 07/10/20 09:18 Dose: 10 meq Documented by: Sertraline HCl (Zoloft -) 75 mg PO DAILY [facility] Last Admin: 07/10/20 09:18 Dose: 75 mg Documented by: Constitutional: Yes: Cachectic, confused Eyes: Yes: WNL HENT: Yes: WNL Neck: Yes: WNL Cardiovascular: Yes: Regular Rate and Rhythm, S1, S2 Respiratory: Yes: Diminished Gastrointestinal: Yes: Normal Bowel Sounds, Soft Extremities: Yes: WNL Edema: No Labs: Laboratory Results - last 24 hr 07/06/20 07/10/20 08:55 05:40 Sodium 141 Potassium 3.8 Chloride 108 H Carbon Dioxide 25 Anion Gap 8 BUN 8.6 Creatinine 0.6 Est GFR (CKD-EPI)AfAm 93.66 Est GFR (CKD-EPI)NonAf 80.81 Random Glucose 87 Calcium 8.3 L Phosphorus 2.5 Magnesium 1.9 Total Bilirubin 0.8 AST 15 ALT 22 Alkaline Phosphatase 65 Total Protein 5.5 L Albumin 2.5 L Blood Type A POSITIVE Antibody Screen Negative Crossmatch See Detail Problem List - Problems (1) Anemia Code(s): D64.9 - ANEMIA, UNSPECIFIED (2) COPD (chronic obstructive pulmonary disease) Code(s): J44.9 - CHRONIC OBSTRUCTIVE PULMONARY DISEASE, UNSPECIFIED Qualifiers: (3) HTN (hypertension) Code(s): I10 - ESSENTIAL (PRIMARY) HYPERTENSION Qualifiers: Hypertension type: essential hypertension Qualified Code(s): I10 - Essential (primary) hypertension (4) Hypercholesterolemia Code(s): E78.00 - PURE HYPERCHOLESTEROLEMIA, UNSPECIFIED (5) Acute respiratory failure with hypoxia and hypercarbia Code(s): J96.01 - ACUTE RESPIRATORY FAILURE WITH HYPOXIA; J96.02 - ACUTE RESPIRATORY FAILURE WITH HYPERCAPNIA (6) COPD exacerbation Code(s): J44.1 - CHRONIC OBSTRUCTIVE PULMONARY DISEASE W (ACUTE) EXACERBATION (7) Elevated troponin Code(s): R79.89 - OTHER SPECIFIED ABNORMAL FINDINGS OF BLOOD CHEMISTRY (8) Acute and chronic respiratory failure with hypoxia Code(s): J96.21 - ACUTE AND CHRONIC RESPIRATORY FAILURE WITH HYPOXIA Assessment/Plan Acute on Chronic Hypoxic Respiratory Failure improving Pneumonia likely Aspiration COPD CAD +Troponins likely Demand Ischemia HTN Hyperlipidemia Dementia - Symbicort BID - BD TX - ABX coverage per ID - O2 to keep SpO2 >905 - Aspiration precautions - can monitor off systemic steroids at this time - DVT prophylaxis Dr Fields
[2020-07-10] MEDS ORDERED: FERRIC CARBOXYMALTOSE 750 MG in SODIUM CHLORIDE 250 ML IVPB ONE (18:19)
[2020-07-10] MEDS ORDERED: IRON SUCROSE INJECTION 300 MG in SODIUM CHLORIDE 250 ML IVPB ONE (20:00)
[2020-07-10] MEDS ORDERED: IRON SUCROSE IVPB ONE (20:00)
[2020-07-10] MEDS ORDERED: SODIUM CHLORIDE IVPB ONE (20:00)
[2020-07-10] MEDS: ATORVASTATIN CA 40 MG TABLET (FP) PO SCH (22:25)
[2020-07-11] MEDS ORDERED: PIPERACILLIN/TAZOBACTAM 3.375 GM VIAL IVPB ONE ×2 (03:08→09:49)
[2020-07-11] MEDS ORDERED: DEXTROSE 5%-WATER - 50 ML IVPB ONE ×2 (03:08→09:49)
[2020-07-11] MEDS: PIPERACILLIN/TAZOB 3.375 GM 3.375 GM in DEXTROSE 5%-WATER - 50 ML IVPB SCH ×2 (03:26→09:56)
[2020-07-11 07:40] LABS: BASO % 0.8 % (0-2.0); EOS % 3.1 % (0-4.5); HEMATOCRIT 34.8 % (32.4-45.2); HEMOGLOBIN 11.1 GM/dL (10.7-15.3); LYMPH % 10.9 % (8-40); MEAN CELL VOLUME 90.7 fl (80-96); MEAN PLT VOLUME 8.5 fl (7.5-11.1); MONO % 8.8 % (3.8-10.2); NEUT % 76.4 % (42.8-82.8); PLATELET COUNT 229 K/MM3 (134-434); RBC 3.84 M/mm3 (3.60-5.2); RDW 16.7 % (11.6-15.6); WHITE BLOOD COUNT 8.6 K/mm3 (4.0-10.0)
[2020-07-11 07:50] LABS: BLOOD UREA NITROGEN 12.8 mg/dL (7-18); CALCIUM 8.7 mg/dL (8.5-10.1); CREATININE 0.7 mg/dL (0.55-1.3); POTASSIUM 3.8 mmol/L (3.5-5.1)
[2020-07-11] MEDS ORDERED: PT OWN MED DRAWER 7, Y5N ONE (09:08)
--- NOTE | 2020-07-11 09:22 | PN ---
Progress Note, Physician - Current Medication List Current Medications: Active Medications Albuterol Sulfate (Ventolin Hfa Inhaler -) 2 puff IH Q4HWA [facility] Last Admin: 07/09/20 22:00 Dose: 2 puff Documented by: Amino Acids (Prosource No Carb Liquid Pkt) 30 ml PO BID@0800,1730 [facility] Ascorbic Acid (Vitamin C -) 500 mg PO DAILY [facility] Last Admin: 07/10/20 09:18 Dose: 500 mg Documented by: Atorvastatin Calcium (Lipitor -) 40 mg PO HS [facility] Last Admin: 07/10/20 22:25 Dose: Not Given Documented by: Budesonide/Formoterol Fumarate (Symbicort 160/4.5mcg -) 1 puff IH BID [facility] Last Admin: 07/10/20 22:26 Dose: 1 puff Documented by: Cholecalciferol (Vitamin D3 -) 1,000 unit PO DAILY [facility] Last Admin: 07/10/20 09:19 Dose: 1,000 unit Documented by: Ferrous Sulfate (Feosol -) 325 mg PO DAILY [facility] Last Admin: 07/10/20 09:18 Dose: 325 mg Documented by: Piperacillin Sod/Tazobactam (Sod 3.375 gm/ Dextrose) 50 mls @ 100 mls/hr IVPB Q8H-IV [facility]; Protocol Last Admin: 07/11/20 03:26 Dose: 100 mls/hr Documented by: Loratadine (Claritin -) 10 mg PO DAILY PRN PRN Reason: ALLERGIES Multivitamins/Minerals/Vitamin C (Tab-A-Vit -) 1 tab PO DAILY [facility] Last Admin: 07/10/20 09:18 Dose: 1 tab Documented by: Pantoprazole Sodium (Protonix Packets For Oral Suspension -) 40 mg PO DAILY [facility] Last Admin: 07/10/20 09:17 Dose: 40 mg Documented by: Potassium Chloride (K-Dur -) 10 meq PO DAILY [facility] Last Admin: 07/10/20 09:18 Dose: 10 meq Documented by: Sertraline HCl (Zoloft -) 75 mg PO DAILY [facility] Last Admin: 07/10/20 09:18 Dose: 75 mg Documented by: - Objective Vital Signs: Vital Signs Temperature 98.1 F 07/11/20 05:42 Pulse Rate 76 07/11/20 05:42 Respiratory Rate 20 07/11/20 05:42 Blood Pressure 159/77 07/11/20 05:42 O2 Sat by Pulse Oximetry (%) 92 L 07/10/20 21:00 Cardiovascular: Yes: S1, S2 Respiratory: Yes: Regular, CTA Bilaterally Gastrointestinal: Yes: Normal Bowel Sounds, Soft Labs: CBC, BMP 07/11/20 05:45 07/11/20 05:45 INR, PTT INR 0.97 (0.83-1.09) 07/06/20 07:30 Problem List - Problems (1) Sepsis Code(s): A41.9 - SEPSIS, UNSPECIFIED ORGANISM (2) Anemia Code(s): D64.9 - ANEMIA, UNSPECIFIED (3) Acute respiratory failure with hypoxia and hypercarbia Code(s): J96.01 - ACUTE RESPIRATORY FAILURE WITH HYPOXIA; J96.02 - ACUTE RESPIRATORY FAILURE WITH HYPERCAPNIA (4) Elevated troponin Code(s): R79.89 - OTHER SPECIFIED ABNORMAL FINDINGS OF BLOOD CHEMISTRY (5) Change in mental status Code(s): R41.82 - ALTERED MENTAL STATUS, UNSPECIFIED (6) Malnutrition Code(s): E46 - UNSPECIFIED PROTEIN-CALORIE MALNUTRITION Assessment/Plan - Problems (1) Acute and chronic respiratory failure with hypoxia Problems reviewed: Yes Code(s): J96.21 - ACUTE AND CHRONIC RESPIRATORY FAILURE WITH HYPOXIA (2) Anemia Assessment/Plan: -GLADYS -Injectafer once -Ferrous sulfate po daily -monitor trend -Transfuse only if hg<7.0 to avoid fluid overload Problems reviewed: Yes Code(s): D64.9 - ANEMIA, UNSPECIFIED (3) Change in mental status Problems reviewed: Yes Code(s): R41.82 - ALTERED MENTAL STATUS, UNSPECIFIED (4) Hypokalemia Assessment/Plan: -2/2 to decreased PO intake -resolved -monitor trend Problems reviewed: Yes Code(s): E87.6 - HYPOKALEMIA (5) Malnutrition Assessment/Plan: -multivitamin -prosource -ensure Problems reviewed: Yes Code(s): E46 - UNSPECIFIED PROTEIN-CALORIE MALNUTRITION (6) Metabolic encephalopathy Problems reviewed: Yes Code(s): G93.41 - METABOLIC ENCEPHALOPATHY (7) Pneumonia Assessment/Plan: -IV abx -ID consult -Speech therapy -MBS to r/o aspiration -Pulmonary consult -O2 to keep spo2>90% -Bronchodilators -COVID 19 PCR negative -afebrile Problems reviewed: Yes Code(s): J18.9 - PNEUMONIA, UNSPECIFIED ORGANISM
--- NOTE | 2020-07-11 09:26 | CONSULT ---
Admitting History and Physical - Admission History of Present Illness: 89 year old with a pmhx of CAD (nstemi April 2020), copd on home O2, asthma, htn, hld, and dementia sent from assisted with sob. CXR b/l opacities. WBC 27, Hgb 6.4, Trops 2's with normal CK, and LA 3.9. Acute on Chronic Hypoxic Respiratory Failure improving Pneumonia likely Aspiration COPD CAD +Troponins likely Demand Ischemia HTN Hyperlipidemia Dementia Selected Entries 07/08/20 07/08/20 07/08/20 10:43 14:00 15:00 Breakfast 25% Diet Tolerated Poor Poor Poor Lunch 25% 25% Supper Temperature Pulse Rate Blood Pressure 07/08/20 07/09/20 07/09/20 18:00 14:05 19:13 Breakfast 0 Diet Tolerated Poor Refused Lunch 0 Supper 25% 0 Temperature Pulse Rate Blood Pressure 07/10/20 07/10/20 07/10/20 10:34 14:00 19:16 Breakfast 0 Diet Tolerated Refused Refused Refused Lunch 0 Supper Temperature Pulse Rate Blood Pressure 07/11/20 07/11/20 02:00 05:42 Breakfast Diet Tolerated Lunch Supper Temperature 98.1 F Pulse Rate 80 76 Blood Pressure 159/76 159/77 Laboratory Tests 07/11/20 05:45 WBC 8.6 On puree/nectar.Improved renal function, poor appetite, poor intake. MBS ordered Seen last April 2020. MBS (-) aspiration but deep penetration Limited po acceptance but drinking Ensure Continue Dys chopped/thin liquids with supervision, monitor tolerance Ensure Compact tid for increased nutritional intake Trial of meds crushed, placed in a sweet food to minimize bitterness eg pudding, maple syrup May benefit from appetite supplement if PO intake remains poor at [facility] History Source: Medical Record Limitations to Obtaining History: Clinical Condition, Dementia - Past Medical History [employer] DES[employer]ER: Yes: Dementia Cardiovascular: Yes: CAD, HTN, Hyperlipdemia, [place] Pulmonary: Yes: COPD (on 2 liters oxygen) Heme/Onc: Yes: Anemia Psych: Yes: Depression - Smoking History Smoking history: Unknown if ever smoked Have you smoked in the past 12 months: No - Alcohol/Substance Use Hx Alcohol Use: No - Social History History of Recent Travel: No History - Admission Reason For Visit: SEPSIS DUE TO PNA - Diagnostics Modified Barium Swallow: Report Reviewed (April 2020. MBS (-) aspiration but deep penetration) - General Mental Status: Awake and Alert, Able to Follow Commands, Forgetful (not oriented but verbal), Confused Attention: Intact Ability to Follow Directions: Good Head/Neck Control: Fair - Hearing Hearing: Normal Speech Evaluation - Communication Primary Language: WELSH Communication: Yes: Within Normal Limits Oral Expression Ability: Yes: No Impairment - Speech Production Able to Make Needs Known: Yes: WNL Intelligibility: Yes: WNL - Speech Characteristics Voice Loudness: Normal Voice Pitch: Yes: Normal Voice Phonatory-based Quality: Yes: Normal Speech Pattern: Normal Nasal Resonance: Normal Articulation: Yes: Precise Rate of Speech: Intact - Language/Auditory Comprehension Follows: Yes: 1 Stage Simple Commands Observation: Able to respond to yes/no queries: Yes, Comprehends Conversational Speech: Yes - Language/Verbal Expression Able to Respond to Simple Queries: Yes: WNL Able to Communicate Wants and Needs: Yes: WNL Functional Communication Status: Yes: WNL - Swallow Evaluation/Bedside Assessment Current Nutritional Intake: Dysphagia Pureed, [place] Textured Liquids Oral Secretions: Yes: WFL Dentition: Yes: Adequate Facial Symmetry at Rest: Symmetrical Facial Symmetry on Retraction: Symmetrical Facial Movement: Controlled Against Resistance Opening: Normal Against Resistance Closing: Normal Pucker Lips: Normal Smile: Normal Lingual Movement: Normal, Symmetric Lingual Speed of Movement: Normal Lingual Movement Strgth Against Opposition: Normal Lingual Movement Characteristics: Normal Velopharyngeal Movement: Normal Laryngeal Movement: Able to Palpate Rate of Intake: WFL Bolus Size: WFL Labial Seal: WFL Oral Prep Time: WFL A-P Transit: WFL Pocketing: None Timing of Swallow: WFL Coughing/Throat Clear: No (thin liquid) Change in Voice: No Recommendations - Speech Evaluation, Impression/Plan Impression: h/o poor appetite inJune 2019 admission. Overtly tolerates thin liquid - Dysphagia Impressions/Plan Dysphagia Impressions: Ongoing Evaluation *Silent aspiration: cannot be R/O at bedside Dysphagia Treatment Plan: Head Turn Left, 1/2 tsp. at a time, Elevate HOB during feed, OOB for meals Recommendations: MBS w Esophagus (to r/o aspiration and upgrade diet)
[2020-07-11] MEDS: FERROUS SO4 325 MG TABLET (FP) PO SCH (09:43)
[2020-07-11] MEDS: MULTIVITAMINS (DAILY MVI) TABLET (FP) PO SCH (09:43)
[2020-07-11] MEDS: ASCORBIC ACID 500 MG TABLET (FP) PO SCH (09:43)
[2020-07-11] MEDS: SERTRALINE HCL 25 MG TABLET (FP) PO SCH (09:43)
[2020-07-11] MEDS: PANTOPRAZOLE SOD 40 MG SUSPENSION PACKET PO SCH (09:44)
[2020-07-11] MEDS: POTASSIUM CHLORIDE TABS 10 MEQ TABLET.ER (FP) PO SCH (09:44)
[2020-07-11] MEDS: CHOLECALCIFEROL (VIT D3) 1,000 UNIT (25 MCG) TABLET PO SCH (09:45)
[2020-07-11] MEDS: BUDESONIDE/FORMETEROL FUMARATE 160/4.5 mcg INHALER IH SCH ×2 (09:45→21:50)
[2020-07-11] MEDS: AMINO ACIDS/PROTEIN HYDROLYS 30 ML LIQUID.PKT PO SCH ×2 (09:55→17:23)
[2020-07-11] MEDS: ALBUTEROL SO4 HFA INHALER IH SCH ×2 (09:56→14:50)
--- NOTE | 2020-07-11 11:33 | PN ---
Progress Note (short form) - Note Progress Note: alert no complaints no distress Vital Signs Period Temp Pulse Resp BP Sys/Clemens Pulse Ox Last 24 Hr 97.8 F-99.1 F 58-80 20-20 114-159/54-80 92-97 cor-rrr lungs clear abd soft,nt ext no edema CBC, BMP 07/11/20 05:45 07/11/20 05:45 Microbiology 07/06/20 07:20 Blood - Peripheral Venous Blood Culture - Final NO GROWTH AFTER 5 DAYS INCUBATION 07/06/20 07:30 Blood - Peripheral Venous Blood Culture - Final NO GROWTH AFTER 5 DAYS INCUBATION 07/07/20 13:20 Urine For Antigen Detection Legionella Antigen - Final 07/07/20 13:20 Urine For Antigen Detection Streptococcus pneumoniae Antigen (M - Final 07/07/20 07:55 Urine For Antigen Detection Legionella Antigen - Final 07/07/20 07:55 Urine For Antigen Detection Streptococcus pneumoniae Antigen (M - Final 07/06/20 07:55 Urine - Urine - Catheterized Urine Culture - Final NO GROWTH OBTAINED a/p probable aspiration pneumonia- doing well d/c zosyn day #6 antibiotics has been afebrile with normal WBC for several days now anemia- s/p transfusion elevated troponin
--- NOTE | 2020-07-11 12:09 | PN ---
Progress Note, Physician Chief Complaint: Shortness of breath History of Present Illness: Seen and examined at the bedside awake and alert offers no acute complaints feels better very poor oral intake as per nurse no diarrhea - Current Medication List Current Medications: Active Medications Albuterol Sulfate (Ventolin Hfa Inhaler -) 2 puff IH Q4HWA [facility] Last Admin: 07/11/20 09:56 Dose: 2 puff Documented by: Amino Acids (Prosource No Carb Liquid Pkt) 30 ml PO BID@0800,1730 [facility] Last Admin: 07/11/20 09:55 Dose: 30 ml Documented by: Ascorbic Acid (Vitamin C -) 500 mg PO DAILY [facility] Last Admin: 07/11/20 09:43 Dose: 500 mg Documented by: Atorvastatin Calcium (Lipitor -) 40 mg PO HS [facility] Last Admin: 07/10/20 22:25 Dose: Not Given Documented by: Budesonide/Formoterol Fumarate (Symbicort 160/4.5mcg -) 1 puff IH BID [facility] Last Admin: 07/11/20 09:45 Dose: 1 puff Documented by: Cholecalciferol (Vitamin D3 -) 1,000 unit PO DAILY [facility] Last Admin: 07/11/20 09:45 Dose: 1,000 unit Documented by: Ferrous Sulfate (Feosol -) 325 mg PO DAILY [facility] Last Admin: 07/11/20 09:43 Dose: 325 mg Documented by: Loratadine (Claritin -) 10 mg PO DAILY PRN PRN Reason: ALLERGIES Multivitamins/Minerals/Vitamin C (Tab-A-Vit -) 1 tab PO DAILY [facility] Last Admin: 07/11/20 09:43 Dose: 1 tab Documented by: Pantoprazole Sodium (Protonix Packets For Oral Suspension -) 40 mg PO DAILY [facility] Last Admin: 07/11/20 09:44 Dose: 40 mg Documented by: Potassium Chloride (K-Dur -) 10 meq PO DAILY [facility] Last Admin: 07/11/20 09:44 Dose: 10 meq Documented by: Sertraline HCl (Zoloft -) 75 mg PO DAILY [facility] Last Admin: 07/11/20 09:43 Dose: 75 mg Documented by: - Objective Vital Signs: Vital Signs Temperature 97.8 F 07/11/20 10:00 Pulse Rate 65 07/11/20 10:00 Respiratory Rate 20 07/11/20 10:00 Blood Pressure 114/59 L 07/11/20 10:00 O2 Sat by Pulse Oximetry (%) 97 07/11/20 10:00 Constitutional: Yes: No Distress, Thin HENT: Yes: Atraumatic Neck: Yes: Supple Cardiovascular: Yes: Regular Rate and Rhythm Respiratory: Yes: Regular Gastrointestinal: Yes: Soft Extremities: No: Cyanosis Edema: No Neurological: Yes: Alert Labs: CBC, BMP 07/11/20 05:45 07/11/20 05:45 INR, PTT INR 0.97 (0.83-1.09) 07/06/20 07:30 Assessment/Plan 89 year old female with pmhx of cad, copd, asthma, htn, hld, depression, dementia who presents with shortness of breath and found to have aspiration PNA with persistent hypokalemia. 1. Hypokalemia 2. Aspiration PNA 3. Respiratory failure 4. Hypertension 5. CAD Serum potassium is improved Serum Mg was within normal limits Oral intake as tolerated if started on IVF would add KCL trend K ad Mg daily. Javed Lozada DO
--- NOTE | 2020-07-11 14:01 | PN ---
Progress Note (short form) - Note Progress Note: PULMONARY VSS/AFEBRILE Constitutional: Yes: Cachectic, confused Eyes: Yes: WNL HENT: Yes: WNL Neck: Yes: WNL Cardiovascular: Yes: Regular Rate and Rhythm, S1, S2 Respiratory: Yes: Diminished Gastrointestinal: Yes: Normal Bowel Sounds, Soft Extremities: Yes: WNL Edema: No LABS/IMAGES NOTED Acute on Chronic Hypoxic Respiratory Failure improving Pneumonia likely Aspiration COPD CAD +Troponins likely Demand Ischemia HTN Hyperlipidemia Dementia - Symbicort BID - BD TX - ABX coverage per ID - O2 to keep SpO2 >905 - Aspiration precautions - can monitor off systemic steroids at this time - DVT prophylaxis Anjana BAH MD
[2020-07-11] MEDS: ATORVASTATIN CA 40 MG TABLET (FP) PO SCH (21:50)
[2020-07-12 07:39] LABS: BLOOD UREA NITROGEN 11.2 mg/dL (7-18); CALCIUM 8.1 mg/dL (8.5-10.1); CREATININE 0.5 mg/dL (0.55-1.3); POTASSIUM 3.6 mmol/L (3.5-5.1)
--- NOTE | 2020-07-12 09:47 | PN ---
Progress Note, Physician Chief Complaint: AMS Pneumonia History of Present Illness: NAD alert but confused Decreased PO intake MBS done today Palliative care consult appreciated- pt is DNR/DNI- no feeding tube insertion - Current Medication List Current Medications: Active Medications Albuterol Sulfate (Ventolin Hfa Inhaler -) 2 puff IH Q4HWA [facility] Last Admin: 07/11/20 14:50 Dose: 2 puff Documented by: Amino Acids (Prosource No Carb Liquid Pkt) 30 ml PO BID@0800,1730 [facility] Last Admin: 07/11/20 17:23 Dose: 30 ml Documented by: Ascorbic Acid (Vitamin C -) 500 mg PO DAILY [facility] Last Admin: 07/11/20 09:43 Dose: 500 mg Documented by: Atorvastatin Calcium (Lipitor -) 40 mg PO HS [facility] Last Admin: 07/11/20 21:50 Dose: 40 mg Documented by: Budesonide/Formoterol Fumarate (Symbicort 160/4.5mcg -) 1 puff IH BID [facility] Last Admin: 07/11/20 21:50 Dose: 1 puff Documented by: Cholecalciferol (Vitamin D3 -) 1,000 unit PO DAILY [facility] Last Admin: 07/11/20 09:45 Dose: 1,000 unit Documented by: Ferrous Sulfate (Feosol -) 325 mg PO DAILY [facility] Last Admin: 07/11/20 09:43 Dose: 325 mg Documented by: Loratadine (Claritin -) 10 mg PO DAILY PRN PRN Reason: ALLERGIES Multivitamins/Minerals/Vitamin C (Tab-A-Vit -) 1 tab PO DAILY [facility] Last Admin: 07/11/20 09:43 Dose: 1 tab Documented by: Pantoprazole Sodium (Protonix Packets For Oral Suspension -) 40 mg PO DAILY [facility] Last Admin: 07/11/20 09:44 Dose: 40 mg Documented by: Potassium Chloride (K-Dur -) 10 meq PO DAILY [facility] Last Admin: 07/11/20 09:44 Dose: 10 meq Documented by: Sertraline HCl (Zoloft -) 75 mg PO DAILY [facility] Last Admin: 07/11/20 09:43 Dose: 75 mg Documented by: - Objective Vital Signs: Vital Signs Temperature 98.0 F 07/12/20 08:33 Pulse Rate 96 H 07/12/20 08:33 Respiratory Rate 20 07/12/20 08:33 Blood Pressure 167/75 07/12/20 08:33 O2 Sat by Pulse Oximetry (%) 96 07/12/20 08:33 Constitutional: Yes: No Distress, Calm, Cachectic Cardiovascular: Yes: Regular Rate and Rhythm Respiratory: Yes: Regular, CTA Bilaterally Gastrointestinal: Yes: Normal Bowel Sounds, Soft Musculoskeletal: Yes: Muscle Weakness Extremities: Yes: WNL Edema: No Peripheral Pulses WNL: Yes Neurological: Yes: Alert, Confusion Psychiatric: Yes: Alert Labs: CBC, BMP 07/11/20 05:45 07/12/20 05:24 INR, PTT INR 0.97 (0.83-1.09) 07/06/20 07:30 Problem List - Problems (1) Acute and chronic respiratory failure with hypoxia Assessment/Plan: -2/2 to pne -Finished IV abx -O2 to maintain Spo2>90% -Pulmonary on board Problems reviewed: Yes Code(s): J96.21 - ACUTE AND CHRONIC RESPIRATORY FAILURE WITH HYPOXIA (2) Anemia Assessment/Plan: -GLADYS -Injectafer once this admission -H/H improved -Ferrous sulfate po daily -monitor trend -Transfuse only if hg<7.0 to avoid fluid overload Problems reviewed: Yes Code(s): D64.9 - ANEMIA, UNSPECIFIED (3) Change in mental status Assessment/Plan: -at baseline at the moment Problems reviewed: Yes Code(s): R41.82 - ALTERED MENTAL STATUS, UNSPECIFIED (4) Hypokalemia Assessment/Plan: -2/2 to decreased PO intake -resolved -monitor trend Problems reviewed: Yes Code(s): E87.6 - HYPOKALEMIA (5) Malnutrition Assessment/Plan: -multivitamin -prosource -ensure Problems reviewed: Yes Code(s): E46 - UNSPECIFIED PROTEIN-CALORIE MALNUTRITION (6) Metabolic encephalopathy Problems reviewed: Yes Code(s): G93.41 - METABOLIC ENCEPHALOPATHY (7) Pneumonia Assessment/Plan: -IV abx finished -ID consult -Speech therapy -MBS shows no aspiration -Start dysphagia chopped with thin liquids -Pulmonary consult -O2 to keep spo2>90% -Bronchodilators -COVID 19 PCR negative -afebrile Problems reviewed: Yes Code(s): J18.9 - PNEUMONIA, UNSPECIFIED ORGANISM Assessment/Plan See problem list
[2020-07-12] MEDS ORDERED: PT OWN MED DRAWER 7, Y5N ONE (09:58)
[2020-07-12] MEDS: PANTOPRAZOLE SOD 40 MG SUSPENSION PACKET PO SCH (10:13)
[2020-07-12] MEDS: MULTIVITAMINS (DAILY MVI) TABLET (FP) PO SCH (10:14)
[2020-07-12] MEDS: ASCORBIC ACID 500 MG TABLET (FP) PO SCH (10:14)
[2020-07-12] MEDS: SERTRALINE HCL 25 MG TABLET (FP) PO SCH (10:14)
[2020-07-12] MEDS: FERROUS SO4 325 MG TABLET (FP) PO SCH (10:14)
[2020-07-12] MEDS: POTASSIUM CHLORIDE TABS 10 MEQ TABLET.ER (FP) PO SCH (10:14)
[2020-07-12] MEDS: AMINO ACIDS/PROTEIN HYDROLYS 30 ML LIQUID.PKT PO SCH ×2 (10:15→17:57)
[2020-07-12] MEDS: BUDESONIDE/FORMETEROL FUMARATE 160/4.5 mcg INHALER IH SCH ×2 (10:15→21:56)
[2020-07-12] MEDS: CHOLECALCIFEROL (VIT D3) 1,000 UNIT (25 MCG) TABLET PO SCH (10:15)
--- NOTE | 2020-07-12 10:32 | PN ---
Progress Note, Physician History of Present Illness: PULMONARY DROWSY,-RESP DISTRESS,TO HAVE MODIFIED BARIUM SWALLOW - Current Medication List Current Medications: Active Medications Albuterol Sulfate (Ventolin Hfa Inhaler -) 2 puff IH Q4HWA [facility] Last Admin: 07/11/20 14:50 Dose: 2 puff Documented by: Amino Acids (Prosource No Carb Liquid Pkt) 30 ml PO BID@0800,1730 [facility] Last Admin: 07/12/20 10:15 Dose: 30 ml Documented by: Ascorbic Acid (Vitamin C -) 500 mg PO DAILY [facility] Last Admin: 07/12/20 10:14 Dose: 500 mg Documented by: Atorvastatin Calcium (Lipitor -) 40 mg PO HS [facility] Last Admin: 07/11/20 21:50 Dose: 40 mg Documented by: Budesonide/Formoterol Fumarate (Symbicort 160/4.5mcg -) 1 puff IH BID [facility] Last Admin: 07/12/20 10:15 Dose: 1 puff Documented by: Cholecalciferol (Vitamin D3 -) 1,000 unit PO DAILY [facility] Last Admin: 07/12/20 10:15 Dose: 1,000 unit Documented by: Ferrous Sulfate (Feosol -) 325 mg PO DAILY [facility] Last Admin: 07/12/20 10:14 Dose: 325 mg Documented by: Loratadine (Claritin -) 10 mg PO DAILY PRN PRN Reason: ALLERGIES Multivitamins/Minerals/Vitamin C (Tab-A-Vit -) 1 tab PO DAILY [facility] Last Admin: 07/12/20 10:14 Dose: 1 tab Documented by: Pantoprazole Sodium (Protonix Packets For Oral Suspension -) 40 mg PO DAILY [facility] Last Admin: 07/12/20 10:13 Dose: 40 mg Documented by: Potassium Chloride (K-Dur -) 10 meq PO DAILY [facility] Last Admin: 07/12/20 10:14 Dose: 10 meq Documented by: Sertraline HCl (Zoloft -) 75 mg PO DAILY [facility] Last Admin: 07/12/20 10:14 Dose: 75 mg Documented by: - Objective Vital Signs: Vital Signs Temperature 98.0 F 07/12/20 08:33 Pulse Rate 96 H 07/12/20 08:33 Respiratory Rate 20 07/12/20 08:33 Blood Pressure 167/75 07/12/20 08:33 O2 Sat by Pulse Oximetry (%) 96 07/12/20 08:33 Constitutional: Yes: Cachectic, Other (DROWSY) Eyes: Yes: WNL HENT: Yes: WNL Neck: Yes: WNL Cardiovascular: Yes: Regular Rate and Rhythm, S1, S2 Respiratory: Yes: Diminished (POOR INSPIRATORY EFFORT) Gastrointestinal: Yes: Normal Bowel Sounds, Soft Extremities: Yes: WNL Edema: No Labs: CBC, BMP 07/12/20 05:24 INR, PTT INR 0.97 (0.83-1.09) 07/06/20 07:30 Problem List - Problems (1) Anemia Code(s): D64.9 - ANEMIA, UNSPECIFIED (2) COPD (chronic obstructive pulmonary disease) Code(s): J44.9 - CHRONIC OBSTRUCTIVE PULMONARY DISEASE, UNSPECIFIED Qualifiers: (3) HTN (hypertension) Code(s): I10 - ESSENTIAL (PRIMARY) HYPERTENSION Qualifiers: Hypertension type: essential hypertension Qualified Code(s): I10 - Essential (primary) hypertension (4) Hypercholesterolemia Code(s): E78.00 - PURE HYPERCHOLESTEROLEMIA, UNSPECIFIED (5) Acute respiratory failure with hypoxia and hypercarbia Code(s): J96.01 - ACUTE RESPIRATORY FAILURE WITH HYPOXIA; J96.02 - ACUTE RESPIRATORY FAILURE WITH HYPERCAPNIA (6) COPD exacerbation Code(s): J44.1 - CHRONIC OBSTRUCTIVE PULMONARY DISEASE W (ACUTE) EXACERBATION (7) Elevated troponin Code(s): R79.89 - OTHER SPECIFIED ABNORMAL FINDINGS OF BLOOD CHEMISTRY (8) Acute and chronic respiratory failure with hypoxia Code(s): J96.21 - ACUTE AND CHRONIC RESPIRATORY FAILURE WITH HYPOXIA Assessment/Plan Assessment/Plan Acute on Chronic Hypoxic Respiratory Failure improved Pneumonia likely Aspiration COPD CAD +Troponins likely Demand Ischemia HTN Hyperlipidemia Dementia - O2 to keep SpO2 >905 - inhaled bronchodilators - can monitor off steroids at this time - DVT prophylaxis - modified barium swallow today DR FINCH
--- NOTE | 2020-07-12 10:45 | PN ---
Progress Note, DAIRY TESTER - Note Progress Note: Selected Entries 07/11/20 07/11/20 07/11/20 02:00 05:42 10:00 Supper Temperature Pulse Rate Blood Pressure 159/76 159/77 114/59 L 07/11/20 07/11/20 07/11/20 14:00 18:01 21:10 Supper 50% Temperature Pulse Rate Blood Pressure 128/52 L 156/71 07/11/20 07/12/20 07/12/20 21:16 02:00 07:09 Supper Temperature 98.9 F 97.8 F Pulse Rate 76 66 Blood Pressure 135/74 166/69 147/60 07/12/20 08:33 Supper Temperature 98.0 F Pulse Rate 96 H Blood Pressure 167/75 Laboratory Tests 07/11/20 05:45 WBC 8.6 MBS not done yesterday-Stretcher was unavailable to bring her [id number] for today. H/o poor intake in this sweet verbal elderly lady with Dementia during April 2020 admission as well. Overtly tolerates thin liquid Pt was on chopped/thin-admitted with PNA Suggest r/o aspiration on MBS, with plan to upgrade to more solid food/thin liquids based on MBS results. On Zoloft. Other appetite stimulant, if not medically contraindicated.
--- NOTE | 2020-07-12 16:18 | DS ---
Physical Examination Vital Signs: Vital Signs Temperature 98.1 F 07/12/20 14:05 Pulse Rate 81 07/12/20 14:05 Respiratory Rate 20 07/12/20 14:05 Blood Pressure 138/57 L 07/12/20 14:05 O2 Sat by Pulse Oximetry (%) 96 07/12/20 10:00 Findings/Remarks: 89 y/o F PMHx CAD (s/p NSTEMI), COPD (on 2L Home O2), Asthma, HTN, HLD, Depression, Insomnia, Dementia presents from [facility] with difficulty breathing. Patient is arousable to verbal stimuli, Alert and oriented to self only however she is pleasantly confused. Case was discussed with [facility] Staff (Crystal RN who was not the overnight nurse but received report ont he patient) who says the staff found the patient to have an O2 sat of 66% and in Respiratory distress. They attempted to give her Nebulizer tx x 2 and supplemental oxygen (unknown if NC, Venti mask or NRB) and reached a saturaiton of 88% however patient remained in respiratory distress prompting visit to [facility]. [facility] Staff denies any recent complaints of fevers, chills, diarrhea, nausea, vomiting. They additionall mention she has been tolerating PO intake without significant dylan changes. (1) Acute and chronic respiratory failure with hypoxia Assessment/Plan: -2/2 to pne -Finished IV abx -O2 to maintain Spo2>90% -Pulmonary on board Problems reviewed: Yes Code(s): J96.21 - ACUTE AND CHRONIC RESPIRATORY FAILURE WITH HYPOXIA (2) Anemia Assessment/Plan: -GLADYS -Injectafer once this admission -H/H improved -Ferrous sulfate po daily -monitor trend -Transfuse only if hg<7.0 to avoid fluid overload Problems reviewed: Yes Code(s): D64.9 - ANEMIA, UNSPECIFIED (3) Change in mental status Assessment/Plan: -at baseline at the moment Problems reviewed: Yes Code(s): R41.82 - ALTERED MENTAL STATUS, UNSPECIFIED (4) Hypokalemia Assessment/Plan: -2/2 to decreased PO intake -resolved -monitor trend Problems reviewed: Yes Code(s): E87.6 - HYPOKALEMIA (5) Malnutrition Assessment/Plan: -multivitamin -prosource -ensure Problems reviewed: Yes Code(s): E46 - UNSPECIFIED PROTEIN-CALORIE MALNUTRITION (6) Metabolic encephalopathy Problems reviewed: Yes Code(s): G93.41 - METABOLIC ENCEPHALOPATHY (7) Pneumonia Assessment/Plan: -IV abx finished -ID consult -Speech therapy -MBS shows no aspiration -Start dysphagia chopped with thin liquids -Pulmonary consult -O2 to keep spo2>90% -Bronchodilators -COVID 19 PCR negative -afebrile Problems reviewed: Yes Code(s): J18.9 - PNEUMONIA, UNSPECIFIED ORGANISM Assessment/Plan See problem list Constitutional: Yes: No Distress, Calm, Cachectic Cardiovascular: Yes: Regular Rate and Rhythm Respiratory: Yes: Regular, CTA Bilaterally Gastrointestinal: Yes: Normal Bowel Sounds, Soft Renal/: Yes: Incontinence Musculoskeletal: Yes: Muscle Weakness Extremities: Yes: WNL Edema: No Peripheral Pulses WNL: Yes Neurological: Yes: Alert, Confusion Psychiatric: Yes: Alert Labs: CBC, BMP 07/11/20 05:45 07/12/20 05:24 Discharge Summary Problems reviewed: Yes Reason For Visit: SEPSIS DUE TO PNA Current Active Problems Acute and chronic respiratory failure with hypoxia (Acute) Anemia (Acute) Change in mental status (Acute) Hypokalemia (Acute) Malnutrition (Acute) Metabolic encephalopathy (Acute) Pneumonia (Acute) Sepsis due to pneumonia (Acute) Condition: Stable - Instructions Referrals: Eh Nassar MD [Primary Care Provider] - Disposition: [facility] - Home Medications Comprehensive Discharge Medication List: Ambulatory Orders Ascorbic Acid 500 mg PO DAILY 04/25/20 Aspirin [ASA -] 81 mg PO DAILY 04/25/20 Atorvastatin Calcium 40 mg PO DAILY 04/25/20 Cholecalciferol (Vitamin D3) [Vitamin D3] 1,000 unit PO DAILY 04/25/20 Clopidogrel Bisulfate [Clopidogrel] 75 mg PO DAILY 04/25/20 Furosemide [Lasix -] 10 mg PO DAILY 04/25/20 Lisinopril 20 mg PO DAILY 04/25/20 Loratadine 10 mg PO DAILY PRN 04/25/20 Potassium Chloride 10 meq PO DAILY 04/25/20 Sertraline HCl [Zoloft] 75 mg PO DAILY 04/25/20 Albuterol Sulfate Inhaler - [Ventolin HFA Inhaler -] 1 - 2 inh PO Q4H #1 inhaler 05/04/20 Budesonide/Formeterol Fumarate [SYMBICORT 160/4.5mcg -] 1 inh PO BID #1 canniste r 05/04/20 Metoprolol Succinate [Toprol Xl] 25 mg PO DAILY #30 tab.er.24h 05/04/20 Albuterol 0.083% Nebulizer Nandini [Ventolin 0.083%] 1 neb NEB Q4H 07/06/20 Ferrous Sulfate [Feosol] 325 mg PO DAILY 07/06/20 Prescription Drug Monitoring Program (I-STOP) results: I-STOP reviewed and no issues identified
[2020-07-12] MEDS ORDERED: TAMSULOSIN HCL 0.4 MG CAP PO ONE (16:42)
--- NOTE | 2020-07-12 17:07 | PN ---
Progress Note, Physician Chief Complaint: Shortness of breath History of Present Illness: Seen and examined at the bedside awake and alert offers no acute complaints oral intake improved today no diarrhea, nausea or vomiting - Current Medication List Current Medications: Active Medications Albuterol Sulfate (Ventolin Hfa Inhaler -) 2 puff IH Q4HWA [facility] Last Admin: 07/11/20 14:50 Dose: 2 puff Documented by: Amino Acids (Prosource No Carb Liquid Pkt) 30 ml PO BID@0800,1730 [facility] Last Admin: 07/12/20 10:15 Dose: 30 ml Documented by: Ascorbic Acid (Vitamin C -) 500 mg PO DAILY [facility] Last Admin: 07/12/20 10:14 Dose: 500 mg Documented by: Atorvastatin Calcium (Lipitor -) 40 mg PO HS [facility] Last Admin: 07/11/20 21:50 Dose: 40 mg Documented by: Budesonide/Formoterol Fumarate (Symbicort 160/4.5mcg -) 1 puff IH BID [facility] Last Admin: 07/12/20 10:15 Dose: 1 puff Documented by: Cholecalciferol (Vitamin D3 -) 1,000 unit PO DAILY [facility] Last Admin: 07/12/20 10:15 Dose: 1,000 unit Documented by: Clopidogrel Bisulfate (Plavix -) 75 mg PO DAILY [facility] Ferrous Sulfate (Feosol -) 325 mg PO DAILY [facility] Last Admin: 07/12/20 10:14 Dose: 325 mg Documented by: Lisinopril (Prinivil) 2.5 mg PO DAILY [facility] Loratadine (Claritin -) 10 mg PO DAILY PRN PRN Reason: ALLERGIES Metoprolol Succinate (Toprol Xl -) 12.5 mg PO DAILY [facility] Multivitamins/Minerals/Vitamin C (Tab-A-Vit -) 1 tab PO DAILY [facility] Last Admin: 07/12/20 10:14 Dose: 1 tab Documented by: Pantoprazole Sodium (Protonix Packets For Oral Suspension -) 40 mg PO DAILY [facility] Last Admin: 07/12/20 10:13 Dose: 40 mg Documented by: Potassium Chloride (K-Dur -) 10 meq PO DAILY [facility] Last Admin: 07/12/20 10:14 Dose: 10 meq Documented by: Sertraline HCl (Zoloft -) 75 mg PO DAILY [facility] Last Admin: 07/12/20 10:14 Dose: 75 mg Documented by: Tamsulosin HCl (Flomax -) 0.4 mg PO DAILY@0830 [facility] - Objective Vital Signs: Vital Signs Temperature 98.1 F 07/12/20 14:05 Pulse Rate 81 07/12/20 14:05 Respiratory Rate 20 07/12/20 14:05 Blood Pressure 138/57 L 07/12/20 14:05 O2 Sat by Pulse Oximetry (%) 96 07/12/20 10:00 Constitutional: Yes: No Distress HENT: Yes: Atraumatic Neck: Yes: Supple Cardiovascular: Yes: Regular Rate and Rhythm Respiratory: Yes: Regular Edema: No Neurological: Yes: Alert Labs: CBC, BMP 07/11/20 05:45 07/12/20 05:24 INR, PTT INR 0.97 (0.83-1.09) 07/06/20 07:30 Assessment/Plan 89 year old female with pmhx of cad, copd, asthma, htn, hld, depression, dementia who presents with shortness of breath and found to have aspiration PNA with persistent hypokalemia. 1. Hypokalemia 2. Aspiration PNA 3. Respiratory failure 4. Hypertension 5. CAD Electrolytes are within normal limits. Oral intake is improved. Continue oral potassium daily discharge planning as per primary team. Javed Lozada DO
[2020-07-12] MEDS: CLOPIDOGREL BISULFATE 75 MG TABLET (FP) PO SCH (17:56)
[2020-07-12] MEDS: LISINOPRIL 5 MG TABLET (FP) PO SCH (17:56)
[2020-07-12] MEDS: metoPROLOL SUCCINATE 25 MG TAB.SR.24H (FP) PO SCH (17:56)
[2020-07-12] MEDS: ATORVASTATIN CA 40 MG TABLET (FP) PO SCH (21:54)
[2020-07-12] MEDS: ALBUTEROL SO4 HFA INHALER IH SCH (21:56)
[2020-07-13 08:19] LABS: BLOOD UREA NITROGEN 14.3 mg/dL (7-18); CALCIUM 8.2 mg/dL (8.5-10.1); CREATININE 0.5 mg/dL (0.55-1.3); POTASSIUM 3.6 mmol/L (3.5-5.1)
[2020-07-13] MEDS ORDERED: TAMSULOSIN HCL 0.4 MG CAP PO SCH (08:30)
[2020-07-13] MEDS: AMINO ACIDS/PROTEIN HYDROLYS 30 ML LIQUID.PKT PO SCH (08:46)
--- NOTE | 2020-07-13 10:16 | PN ---
Progress Note, Physician Chief Complaint: AMS Pneumonia History of Present Illness: NAD alert but confused Decreased PO intake MBS done today Palliative care consult appreciated- pt is DNR/DNI- no feeding tube insertion - Current Medication List Current Medications: Active Medications Albuterol Sulfate (Ventolin Hfa Inhaler -) 2 puff IH Q4HWA [facility] Last Admin: 07/12/20 21:56 Dose: 2 puff Documented by: Amino Acids (Prosource No Carb Liquid Pkt) 30 ml PO BID@0800,1730 [facility] Last Admin: 07/13/20 08:46 Dose: Not Given Documented by: Ascorbic Acid (Vitamin C -) 500 mg PO DAILY [facility] Last Admin: 07/12/20 10:14 Dose: 500 mg Documented by: Atorvastatin Calcium (Lipitor -) 40 mg PO HS [facility] Last Admin: 07/12/20 21:54 Dose: 40 mg Documented by: Budesonide/Formoterol Fumarate (Symbicort 160/4.5mcg -) 1 puff IH BID [facility] Last Admin: 07/12/20 21:56 Dose: 1 puff Documented by: Cholecalciferol (Vitamin D3 -) 1,000 unit PO DAILY [facility] Last Admin: 07/12/20 10:15 Dose: 1,000 unit Documented by: Clopidogrel Bisulfate (Plavix -) 75 mg PO DAILY [facility] Last Admin: 07/12/20 17:56 Dose: 75 mg Documented by: Ferrous Sulfate (Feosol -) 325 mg PO DAILY [facility] Last Admin: 07/12/20 10:14 Dose: 325 mg Documented by: Lisinopril (Prinivil) 2.5 mg PO DAILY [facility] Last Admin: 07/12/20 17:56 Dose: 2.5 mg Documented by: Loratadine (Claritin -) 10 mg PO DAILY PRN PRN Reason: ALLERGIES Metoprolol Succinate (Toprol Xl -) 12.5 mg PO DAILY [facility] Last Admin: 07/12/20 17:56 Dose: 12.5 mg Documented by: Multivitamins/Minerals/Vitamin C (Tab-A-Vit -) 1 tab PO DAILY [facility] Last Admin: 07/12/20 10:14 Dose: 1 tab Documented by: Pantoprazole Sodium (Protonix Packets For Oral Suspension -) 40 mg PO DAILY [facility] Last Admin: 07/12/20 10:13 Dose: 40 mg Documented by: Potassium Chloride (K-Dur -) 10 meq PO DAILY [facility] Last Admin: 07/12/20 10:14 Dose: 10 meq Documented by: Sertraline HCl (Zoloft -) 75 mg PO DAILY [facility] Last Admin: 07/12/20 10:14 Dose: 75 mg Documented by: Tamsulosin HCl (Flomax -) 0.4 mg PO DAILY@0830 [facility] Last Admin: 07/13/20 08:47 Dose: Not Given Documented by: - Objective Vital Signs: Vital Signs Temperature 98.0 F 07/13/20 06:00 Pulse Rate 60 07/13/20 06:00 Respiratory Rate 20 07/13/20 06:00 Blood Pressure 147/56 L 07/13/20 06:00 O2 Sat by Pulse Oximetry (%) 96 07/13/20 02:00 Constitutional: Yes: No Distress, Calm, Cachectic Cardiovascular: Yes: Regular Rate and Rhythm Respiratory: Yes: Regular, CTA Bilaterally Gastrointestinal: Yes: Normal Bowel Sounds, Soft Genitourinary: Yes: [place] Present Musculoskeletal: Yes: Muscle Weakness Extremities: Yes: WNL Edema: No Peripheral Pulses WNL: Yes Neurological: Yes: Alert, Confusion, Pre-Existing Deficit Psychiatric: Yes: Alert Labs: CBC, BMP 07/11/20 05:45 07/13/20 05:48 INR, PTT INR 0.97 (0.83-1.09) 07/06/20 07:30 Problem List - Problems (1) Acute and chronic respiratory failure with hypoxia Assessment/Plan: -2/2 to pne -Finished IV abx -O2 to maintain Spo2>90% -Pulmonary on board Problems reviewed: Yes Code(s): J96.21 - ACUTE AND CHRONIC RESPIRATORY FAILURE WITH HYPOXIA (2) Anemia Assessment/Plan: -GLADYS -Injectafer once this admission -H/H improved -Ferrous sulfate po daily -monitor trend -Transfuse only if hg<7.0 to avoid fluid overload Problems reviewed: Yes Code(s): D64.9 - ANEMIA, UNSPECIFIED (3) Change in mental status Assessment/Plan: -at baseline at the moment Problems reviewed: Yes Code(s): R41.82 - ALTERED MENTAL STATUS, UNSPECIFIED (4) Hypokalemia Assessment/Plan: -2/2 to decreased PO intake -resolved -monitor trend Problems reviewed: Yes Code(s): E87.6 - HYPOKALEMIA (5) Malnutrition Assessment/Plan: -multivitamin -prosource -ensure Problems reviewed: Yes Code(s): E46 - UNSPECIFIED PROTEIN-CALORIE MALNUTRITION (6) Metabolic encephalopathy Problems reviewed: Yes Code(s): G93.41 - METABOLIC ENCEPHALOPATHY (7) Pneumonia Assessment/Plan: -IV abx finished -ID consult -Speech therapy -MBS shows no aspiration -Tolerating dysphagia chopped with thin liquids -Pulmonary consult -O2 to keep spo2>90% -Bronchodilators -COVID 19 PCR negative -afebrile Problems reviewed: Yes Code(s): J18.9 - PNEUMONIA, UNSPECIFIED ORGANISM Assessment/Plan See problem list
[2020-07-13] MEDS: PANTOPRAZOLE SOD 40 MG SUSPENSION PACKET PO SCH (10:22)
[2020-07-13] MEDS: CLOPIDOGREL BISULFATE 75 MG TABLET (FP) PO SCH (10:22)
[2020-07-13] MEDS: ASCORBIC ACID 500 MG TABLET (FP) PO SCH (10:22)
[2020-07-13] MEDS: SERTRALINE HCL 25 MG TABLET (FP) PO SCH (10:22)
[2020-07-13] MEDS: MULTIVITAMINS (DAILY MVI) TABLET (FP) PO SCH (10:22)
--- NOTE | 2020-07-13 10:22 | PN ---
Progress Note, SPECIAL EDUCATION AIDE - Note Progress Note: MBS completed yesterday- Regular chopped diet, thin liquids recommended. Dysphagiua chopped/thin ordered. No aspiration. Failure to thrive likely sec to Dementia, ongoing, not acute. Noted during last admission Selected Entries 07/12/20 07/12/20 07/12/20 12:06 14:53 18:00 Breakfast 25% Lunch 50% Supper 25% Temperature Pulse Rate Blood Pressure 07/13/20 07/13/20 02:00 06:00 Breakfast Lunch Supper Temperature 98.4 F 98.0 F Pulse Rate 72 60 Blood Pressure 144/65 147/56 L Laboratory Tests 07/11/20 05:45 WBC 8.6 Needs a lot of encouragement to accept meals/supplements, but with improvement over last few days.
[2020-07-13] MEDS: POTASSIUM CHLORIDE TABS 10 MEQ TABLET.ER (FP) PO SCH (10:23)
[2020-07-13] MEDS: metoPROLOL SUCCINATE 25 MG TAB.SR.24H (FP) PO SCH (10:23)
[2020-07-13] MEDS: ALBUTEROL SO4 HFA INHALER IH SCH (10:24)
[2020-07-13] MEDS: BUDESONIDE/FORMETEROL FUMARATE 160/4.5 mcg INHALER IH SCH (10:24)
[2020-07-13] MEDS: LISINOPRIL 5 MG TABLET (FP) PO SCH (10:25)
[2020-07-13] MEDS: FERROUS SO4 325 MG TABLET (FP) PO SCH (10:25)
[2020-07-13] MEDS: CHOLECALCIFEROL (VIT D3) 1,000 UNIT (25 MCG) TABLET PO SCH (10:25)
[2020-07-13 11:23] VITALS: BP 155/67; PULSE 61; TEMP 98.4
== END 2020-07-13 12:09 | DRG 871 ==
LOC: JER 06:38 → JERBED 10:40 → J4W 13:20
PROVIDERS: ADMIT Internal Medicine; ATTEND Family Medicine
DX: A41.89 Other specified sepsis (principal); J69.0 Pneumonitis due to inhalation of food and vomit; J96.01 Acute respiratory failure with hypoxia; E43 Unspecified severe protein-calorie malnutrition; G93.41 Metabolic encephalopathy; I24.8 Other forms of acute ischemic heart disease; Z68.1 Body mass index [BMI] 19.9 or less, adult; I25.10 Atherosclerotic heart disease of native coronary artery without angina pectoris; J44.9 Chronic obstructive pulmonary disease, unspecified; E78.5 Hyperlipidemia, unspecified; I10 Essential (primary) hypertension; I25.2 Old myocardial infarction; F03.90 Unspecified dementia, unspecified severity, without behavioral disturbance, psychotic disturbance, mood disturbance, and anxiety; D50.9 Iron deficiency anemia, unspecified; R79.89 Other specified abnormal findings of blood chemistry; G47.00 Insomnia, unspecified; F32.9 Major depressive disorder, single episode, unspecified; R41.82 Altered mental status, unspecified; E87.6 Hypokalemia; D72.829 Elevated white blood cell count, unspecified; Z99.81 Dependence on supplemental oxygen
CPT/HCPCS: 36415; 36430; 36600; 70450-TC; 71045-TC-FY; 74230-TC-FY; 80048; 80053; 81003; 82272; 82550; 82607; 82728; 82746; 82803; 83540; 83550; 83605; 83615; 83735; 83880; 84100; 84484; 85025; 85045; 85379; 85610; 85730; 86140; 86850; 86900; 86901; 86922; 87040; 87086; 87899; 90670; 92611-GN; 93005; 93010; 97116-GP; 97161-GP; 99285-25; J1756; P9058; U0003

== ENCOUNTER 2020-08-30 11:07 | Inpatient (IN) | payer OTHER, BC ==
--- NOTE | 2020-08-30 11:28 | PDOC ---
History of Present Illness - General Chief Complaint: Revisit, Lab Variance Stated Complaint: BLOOD TRANSFUSION Time Seen by Provider: 08/30/20 11:24 History Source: Patient Exam Limitations: No Limitations, Dementia - History of Present Illness Initial Comments: 08/30/20 11:28 89 y.o. F PMHx CAD, NSTEMI, anemia, asthma, COPD, HLD, HTN, anemia presenting due to anemia and sent from a facility. Patient is AAOx1 at baseline. Patient is unsure why she is here, where she is and is unable to answer questions about pain or her current health status. Patients records indicate chronic anemia requiring transfusion. 08/30/20 11:55 Is this a multiple visit Asthma Patient?: No Past History - Medical History Allergies/Adverse Reactions: Allergies Allergy/AdvReac Type Severity Reaction Status Date / Time No Known Allergies Allergy Verified 08/30/20 11:39 Home Medications: Ambulatory Orders Aspirin [ASA -] 81 mg PO DAILY 04/25/20 Atorvastatin Calcium 40 mg PO DAILY 04/25/20 Cholecalciferol (Vitamin D3) [Vitamin D3] 1,000 unit PO DAILY 04/25/20 Potassium Chloride 10 meq PO DAILY 04/25/20 Albuterol Sulfate Inhaler - [Ventolin HFA Inhaler -] 1 - 2 inh PO Q4H #1 inhaler 05/04/20 Budesonide/Formeterol Fumarate [SYMBICORT 160/4.5mcg -] 1 inh PO BID #1 cannister 05/04/20 Albuterol 0.083% Nebulizer Nandini [Ventolin 0.083% Nebulizer Soln -] 1 neb NEB Q4H 07/06/20 Ferrous Sulfate [Feosol] 325 mg PO DAILY 07/06/20 Clopidogrel Bisulfate [Plavix -] 75 mg PO DAILY tablet 07/12/20 Ascorbic Acid [Vitamin C] 500 mg PO DAILY 08/30/20 Furosemide [Lasix] 10 mg PO DAILY 08/30/20 Lisinopril [Prinivil] 20 mg PO DAILY 08/30/20 Anemia: Yes Asthma: Yes Cardiac Disorders: Yes (CAD, h/x NSTEMI) COPD: Yes Dementia: Yes HTN: Yes Hypercholesterolemia: Yes Psychiatric Problems: Yes - Reproductive History Is Patient Now?: No - Immunization History Td Vaccination: Yes TDAP Vaccination: Yes Immunization Up to Date: Yes - Psycho-Social/Smoking History Smoking History: Unknown if ever smoked Have you smoked in the past 12 months: No Information on smoking cessation initiated: No - Substance Abuse Hx (Audit-C & DAST Scrn) In the last yr the pt used illegal drug/Rx for NonMed reason: No Score: Yes response is considered Positive: 0 Screen Result (Positive result requires Nsg. DAST-10): Negative Review of Systems - Review of Systems Able to Perform ROS?: Yes Comments:: 08/30/20 11:53 Baseline dementia Is the patient limited German proficient: No Constitutional: No: Chills, Fever HEENTM: No: Blurred Vision, Double Vision Respiratory: No: Cough, Shortness of Breath Cardiac (ROS): No: Chest Pain, Lightheadedness ABD/GI: No: Constipated, Diarrhea, Nausea, Vomiting : No: Burning, Dysuria Musculoskeletal: No: Muscle Pain, Muscle Weakness Integumentary: No: Bruising, Dryness, Rash Neurological: No: Headache, Numbness, Tingling, Dizziness Hematologic/Lymphatic: Yes: Anemia. No: Easy Bleeding, Easy Bruising *Physical Exam - Vital Signs Last Vital Signs Temp Pulse Resp BP Pulse Ox 99.0 F 90 16 100/45 L 100 08/30/20 11:10 08/30/20 11:10 08/30/20 11:10 08/30/20 11:10 08/30/20 11:10 - Physical Exam General Appearance: Yes: Nourished, Appropriately Dressed. No: Apparent Distress Respiratory/Chest: positive: Lungs Clear, Normal Breath Sounds. negative: Chest Tender, Respiratory Distress, Accessory Muscle Use, Crackles, Rales, Stridor, Wheezing Cardiovascular: positive: Regular Rhythm, Regular Rate. negative: Edema, JVD, Murmur Gastrointestinal/Abdominal: positive: Normal Bowel Sounds, Flat, Soft, Distended, Guarding, Rebound, Hernia. negative: Tender Musculoskeletal: positive: Normal Inspection. negative: CVA Tenderness Extremity: positive: Normal Inspection. negative: Tender, Coldness, Swelling, Calf Tenderness, Erythema Integumentary: positive: Normal Color, Dry, Warm Neurologic: positive: Alert, Normal Mood/Affect, Normal Response, Responsive, Confused, Disoriented. negative: Fully Oriented (AAOX1) ED Treatment Course - LABORATORY CBC & Chemistry Diagram: 08/31/20 08:00 08/30/20 11:41 Medical Decision Making - Medical Decision Making 08/30/20 12:32 89 y.o. F PMHx CAD, NSTEMI, anemia, asthma, COPD, HLD, HTN, anemia presenting due to anemia and sent from a facility. DDx: Chronic Anemia Labs: Hgb 5.3, Hct 16.9 CXR: No acute chest pathology 474ms EKG: NSR w/ 1st degree a/v block, QTc 474, 76 bpm - Spoke to healthcare proxy (Mr. Morataya) and he gave oral consent for transfusion. - Stool Guiac performed no masses palpated, rectal vault empty. Dispo: Admission med surg 08/30/20 16:09 Discharge - Discharge Information Problems reviewed: Yes Clinical Impression/Diagnosis: Anemia Qualifiers: Anemia type: unspecified type Qualified Code(s): D64.9 - Anemia, unspecified Condition: Fair - Admission Yes - Follow up/Referral - Patient Discharge Instructions - Post Discharge Activity
[2020-08-30 12:37] LABS: ALBUMIN 2.3 g/dl (3.4-5.0); BILIRUBIN,TOTAL 0.2 mg/dL (0.2-1); BLOOD UREA NITROGEN 27.7 mg/dL (7-18); CALCIUM 8.3 mg/dL (8.5-10.1); CREATININE 0.6 mg/dL (0.55-1.3); POTASSIUM 4.6 mmol/L (3.5-5.1); TOT PROT 5.4 g/dl (6.4-8.2)
[2020-08-30 12:41] LABS: BASO % 0.8 % (0-2.0); EOS % 1.1 % (0-4.5); HEMATOCRIT 16.9 % (32.4-45.2); LYMPH % 22.9 % (8-40); MCH 27.6 pg (25.7-33.7); MCHC 31.3 g/dl (32.0-36.0); MEAN CELL VOLUME 88.1 fl (80-96); MEAN PLT VOLUME 8.1 fl (7.5-11.1); MONO % 9.9 % (3.8-10.2); NEUT % 65.3 % (42.8-82.8); PLATELET COUNT 301 K/MM3 (134-434); RBC 1.92 M/mm3 (3.60-5.2); RDW 17.4 % (11.6-15.6); WHITE BLOOD COUNT 5.9 K/mm3 (4.0-10.0)
[2020-08-30 12:43] LABS: HEMOGLOBIN 5.3 GM/dL (10.7-15.3)
--- NOTE | 2020-08-30 12:45 | PDOC ---
Attending Attestation - Resident Resident Name: Samir Alexander - ED Attending Attestation I have performed the following: I have examined & evaluated the patient, The case was reviewed & discussed with the resident, I agree w/resident's findings & plan - HPI HPI: 08/30/20 12:42 89-year-old female from care home with anemia on blood tests, has history of anemia requiring transfusions in the past. Last admission was in June, seen by GI but had no overt GI bleeding at that time so no acute intervention was indicated given comorbidities. - Physicial Exam PE: 08/30/20 12:42 Temp 99, vitals otherwise within normal limits Frail elderly woman lying comfortably in stretcher, comfortable and conversant, baseline dementia, pale appearance Pale conjunctiva Dry mucosa Abdomen benign 2+ distal pulses - Medical Decision Making 08/30/20 12:43 89-year-old female with history of anemia of unclear cause, possibly multifactorial, requiring transfusions in the past, presents for transfusion with low hemoglobin on labs at care home. Hemodynamically stable without evidence of overt bleeding at this time. Labs EKG, chest x-ray Transfuse as indicated Admission Heart Score/ECG Review #1 ECG reviewed & interpreted by me at: 11:46 General ECG Interpretation: Sinus Rhythm, Normal Rate (76), Normal Intervals (qtc 474), No acute ischemic changes Discharge - Discharge Information Problems reviewed: Yes Clinical Impression/Diagnosis: Anemia Qualifiers: Anemia type: unspecified type Qualified Code(s): D64.9 - Anemia, unspecified Condition: Fair - Follow up/Referral - Patient Discharge Instructions - Post Discharge Activity
--- NOTE | 2020-08-30 14:45 | EKG ---
Test Reason : Blood Pressure : / mmHG Vent. Rate : 076 BPM Atrial Rate : 068 BPM P-R Int : 224 ms QRS Dur : 088 ms QT Int : 422 ms P-R-T Axes : 084 001 096 degrees QTc Int : 474 ms POOR DATA QUALITY, INTERPRETATION MAY BE ADVERSELY AFFECTED NORMAL SINUS RHYTHM WITH 1ST DEGREE A-V BLOCK NONSPECIFIC ST AND T WAVE ABNORMALITY ABNORMAL ECG WHEN COMPARED WITH ECG OF 06-JUL-2020 19:37, CRITERIA FOR SEPTAL INFARCT ARE NO LONGER PRESENT ST NO LONGER DEPRESSED IN LATERAL LEADS Confirmed by MD JADE, FELECIA ([id number]) on 08/30/2020 2:45:03 PM Referred By: Confirmed By:FELECIA HANSEN MD
[2020-08-30] MEDS ORDERED: ACETAMINOPHEN 325 MG TABLET (FP) PO PRN (15:39)
[2020-08-30] MEDS ORDERED: SODIUM CHLORIDE 1,000 ML IV SCH (15:45)
[2020-08-30] MEDS ORDERED: MORPHINE SULFATE 2 MG/ML VIAL ONE (21:15)
[2020-08-30] MEDS ORDERED: MORPHINE SULFATE 2 MG/ML VIAL IVPUSH STA (21:19)
[2020-08-31] MEDS: PANTOPRAZOLE SODIUM 40 MG VIAL IVPUSH SCH ×2 (00:59→09:47)
[2020-08-31 01:39] VITALS: BMI 16.0
[2020-08-31 02:13] LABS: HEMATOCRIT 25.1 % (32.4-45.2); HEMOGLOBIN 8.4 GM/dL (10.7-15.3); MCH 29.1 pg (25.7-33.7); MCHC 33.7 g/dl (32.0-36.0); MEAN CELL VOLUME 86.3 fl (80-96); MEAN PLT VOLUME 8.1 fl (7.5-11.1); PLATELET COUNT 302 K/MM3 (134-434); RDW 15.9 % (11.6-15.6); WHITE BLOOD COUNT 10.3 K/mm3 (4.0-10.0)
[2020-08-31 08:38] LABS: HEMATOCRIT 24.8 % (32.4-45.2); HEMOGLOBIN 8.1 GM/dL (10.7-15.3); MCH 28.1 pg (25.7-33.7); MCHC 32.8 g/dl (32.0-36.0); MEAN CELL VOLUME 85.8 fl (80-96); MEAN PLT VOLUME 8.1 fl (7.5-11.1); PLATELET COUNT 291 K/MM3 (134-434); RBC 2.89 M/mm3 (3.60-5.2); WHITE BLOOD COUNT 7.6 K/mm3 (4.0-10.0)
[2020-08-31 09:10] LABS: IRON SERUM 35 ug/dL (50-175); TOTAL IRON BINDING CAPACITY 232 ug/dL (250-450)
--- NOTE | 2020-08-31 11:52 | HP ---
Admitting History and Physical - Primary Care Physician PCP: claire swartz - Admission Chief Complaint: Anemia History of Present Illness: 89-year-old female from longterm with anemia on blood tests, has history of anemia requiring transfusions in the past. Last admission was in June, seen by GI but had no overt GI bleeding at that time so no acute intervention was indicated given comorbidities. Currently tachypneic, diffuse wheezing noted with mild distress From Nursing notes overnight, pt is hospice? Called [facility] on cell, left message with my cell number to call back to confirm. 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 Cardiovascular: Yes: CAD, HTN, Hyperlipdemia, CO Pulmonary: Yes: COPD (on 2 liters oxygen) ...: No Heme/Onc: Yes: Anemia Psych: Yes: Depression - Advance Directives Advance Directives: Yes: MOLST - Smoking History Smoking history: Unknown if ever smoked Have you smoked in the past 12 months: No - Alcohol/Substance Use Hx Alcohol Use: No - Social History History of Recent Travel: No Home Medications - Allergies Allergies/Adverse Reactions: Allergies Allergy/AdvReac Type Severity Reaction Status Date / Time No Known Allergies Allergy Verified 08/30/20 11:39 - Home Medications Home Medications: Ambulatory Orders Aspirin [ASA -] 81 mg PO DAILY 04/25/20 Atorvastatin Calcium 40 mg PO DAILY 04/25/20 Cholecalciferol (Vitamin D3) [Vitamin D3] 1,000 unit PO DAILY 04/25/20 Potassium Chloride 10 meq PO DAILY 04/25/20 Albuterol Sulfate Inhaler - [Ventolin HFA Inhaler -] 1 - 2 inh PO Q4H #1 inhaler 05/04/20 Budesonide/Formeterol Fumarate [SYMBICORT 160/4.5mcg -] 1 inh PO BID #1 cannister 05/04/20 Albuterol 0.083% Nebulizer Nandini [Ventolin 0.083% Nebulizer Soln -] 1 neb NEB Q4H 07/06/20 Ferrous Sulfate [Feosol] 325 mg PO DAILY 07/06/20 Clopidogrel Bisulfate [Plavix -] 75 mg PO DAILY tablet 07/12/20 Ascorbic Acid [Vitamin C] 500 mg PO DAILY 08/30/20 Furosemide [Lasix] 10 mg PO DAILY 08/30/20 Lisinopril [Prinivil] 20 mg PO DAILY 08/30/20 Review of Systems Unable to obtain ROS, reason: Due to medical condition Physical Examination Vital Signs: Vital Signs Temperature 98.7 F 08/31/20 05:51 Pulse Rate 74 08/31/20 05:51 Respiratory Rate 18 08/31/20 05:51 Blood Pressure 110/57 L 08/31/20 05:51 O2 Sat by Pulse Oximetry (%) 100 08/31/20 05:51 Constitutional: Yes: Calm, Cachectic, Mild Distress Cardiovascular: Yes: Regular Rate and Rhythm Respiratory: Yes: On Nasal O2, Rhonchi (diffuse), Tachypnea Gastrointestinal: Yes: Soft, Hypoactive Bowel Sounds Renal/: Yes: Incontinence Musculoskeletal: Yes: Muscle Weakness Edema: No Peripheral Pulses WNL: Yes Neurological: Yes: Other (obtunded) Labs: CBC, BMP 08/31/20 08:00 08/30/20 11:41 Imaging - Results Chest X-ray: Image Reviewed Problem List - Problems (1) Hospice care Assessment/Plan: -Left msg for son to confirm -Fentanyl 25 mcg TD Q72H -Morphine IVP Q4H PRN -Scopolamine patch -Acetaminophen UT PRN for fever >100.0F -NPO -Palliative care consulted -D/C IVF- concern for fluid overload, also received 2 units of PRBC -Furosemide 40 mg IVP once Problems reviewed: Yes (2) Anemia Assessment/Plan: -s/p 2 units of PRBC Problems reviewed: Yes Code(s): D64.9 - ANEMIA, UNSPECIFIED Qualifiers: Anemia type: unspecified type Qualified Code(s): D64.9 - Anemia, unspecified Assessment/Plan See problem list
[2020-08-31] MEDS ORDERED: MORPHINE SULFATE 2 MG/ML VIAL IVPUSH PRN (12:28)
[2020-08-31] MEDS ORDERED: FENTANYL PATCH WASTE MC PRN (12:28)
[2020-08-31] MEDS ORDERED: fentaNYL 25mcg/hr PATCH.TD72 TD SCH (12:30)
[2020-08-31] MEDS ORDERED: ACETAMINOPHEN 650 MG SUPP.RECT PR PRN (12:35)
[2020-08-31] MEDS ORDERED: FUROSEMIDE 40 MG/4 ML INJECTABLE VIAL IVPUSH ONE (12:36)
[2020-08-31] MEDS ORDERED: SCOPOLAMINE HYDROBROMIDE 1 PATCH PATCH.TD72 TD SCH (12:45)
[2020-09-01 07:17] VITALS: BP 134/58; PULSE 59; TEMP 99.7
--- NOTE | 2020-09-01 10:48 | CON.GI ---
Consult Consult Specialty:: gastroenterology coverage for Dr Bueno Reason for Consultation:: anemia - History of Present Illness Chief Complaint: anemia History of Present Illness: Pt appear to be restless, no distress, pain noted. 89-year-old female from detention with anemia on blood tests, has history of anemia requiring transfusions in the past. Last admission was in June, seen by GI but had no overt GI bleeding at that time so no acute intervention was indicated given comorbidities. from previous notes confirmed with son Angelo, that his mother to be on Hospice. 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 Cardio/Vascular: Yes: CAD, HTN, Hyperlipdemia, GA Pulmonary: Yes: COPD (on 2 liters oxygen) ...: No Psych: Yes: Depression - Alcohol/Substance Use Hx Alcohol Use: No - Smoking History Smoking history: Unknown if ever smoked Have you smoked in the past 12 months: No - Social History Usual Living Arrangement: Custodial History of Recent Travel: No Home Medications - Allergies Allergies/Adverse Reactions: Allergies Allergy/AdvReac Type Severity Reaction Status Date / Time No Known Allergies Allergy Verified 08/30/20 11:39 - Home Medications Home Medications: Ambulatory Orders Aspirin [ASA -] 81 mg PO DAILY 04/25/20 Atorvastatin Calcium 40 mg PO DAILY 04/25/20 Cholecalciferol (Vitamin D3) [Vitamin D3] 1,000 unit PO DAILY 04/25/20 Potassium Chloride 10 meq PO DAILY 04/25/20 Albuterol Sulfate Inhaler - [Ventolin HFA Inhaler -] 1 - 2 inh PO Q4H #1 inhaler 05/04/20 Budesonide/Formeterol Fumarate [SYMBICORT 160/4.5mcg -] 1 inh PO BID #1 cannister 05/04/20 Albuterol 0.083% Nebulizer Nandini [Ventolin 0.083% Nebulizer Soln -] 1 neb NEB Q4H 07/06/20 Ferrous Sulfate [Feosol] 325 mg PO DAILY 07/06/20 Clopidogrel Bisulfate [Plavix -] 75 mg PO DAILY tablet 07/12/20 Ascorbic Acid [Vitamin C] 500 mg PO DAILY 08/30/20 Furosemide [Lasix] 10 mg PO DAILY 08/30/20 Lisinopril [Prinivil] 20 mg PO DAILY 08/30/20 Review of Systems - Review of Systems Constitutional: reports: No Symptoms Eyes: reports: No Symptoms HENT: reports: No Symptoms Neck: reports: No Symptoms Cardiovascular: reports: No Symptoms Respiratory: reports: No Symptoms Gastrointestinal: reports: No Symptoms Genitourinary: reports: No Symptoms Physical Exam-GI Vital Signs: Vital Signs Temperature 99.7 F H 09/01/20 05:00 Pulse Rate 59 L 09/01/20 05:00 Respiratory Rate 18 09/01/20 05:00 Blood Pressure 134/58 L 09/01/20 05:00 O2 Sat by Pulse Oximetry (%) 100 09/01/20 05:00 Constitutional: Yes: No Distress, Cachectic Eyes: Yes: Conjunctiva Clear, EOM Intact HENT: Yes: Atraumatic, Normocephalic Neck: Yes: WNL, Supple, Trachea Midline Cardiovascular: Yes: WNL, Regular Rate and Rhythm Respiratory: Yes: WNL, Regular, Rhonchi Gastrointestinal Inspection: Yes: WNL. No: Distention ...Auscultate: Yes: Hypoactive Bowel Sounds ...Palpate: Yes: Soft. No: Firm/Rigid, Guarding, Hepatomegaly, Mass, Pulsatile Mass, Splenomegaly, Tenderness, Tenderness, Epigastium Labs: CBC, BMP 08/31/20 08:00 08/30/20 11:41 Problem List - Problems (1) Anemia Assessment/Plan: s/p 2 units of PRBC plan for hospice Code(s): D64.9 - ANEMIA, UNSPECIFIED Qualifiers: Anemia type: unspecified type Qualified Code(s): D64.9 - Anemia, unspecified
[2020-09-01] MEDS ORDERED: ALBUTEROL SO4 2.5/IPRATROPIUM 0.5 INH SOL 3 ML VIAL.NEB. NEB PRN (11:29)
--- NOTE | 2020-09-01 11:30 | DS ---
Physical Examination Vital Signs: Vital Signs Temperature 99.7 F H 09/01/20 05:00 Pulse Rate 59 L 09/01/20 05:00 Respiratory Rate 18 09/01/20 05:00 Blood Pressure 134/58 L 09/01/20 05:00 O2 Sat by Pulse Oximetry (%) 100 09/01/20 05:00 Findings/Remarks: 89-year-old female from senior living with anemia on blood tests, has history of anemia requiring transfusions in the past. Last admission was in June, seen by GI but had no overt GI bleeding at that time so no acute intervention was ind icated given comorbidities. Confirmed with son Angelo, Health care proxy, who wants his mother to be on Hospice. Wishes respected and initiated Constitutional: Yes: Calm, Cachectic Cardiovascular: Yes: Regular Rate and Rhythm Respiratory: Yes: Regular, Rhonchi (diffuse) Gastrointestinal: Yes: Normal Bowel Sounds, Soft Renal/: Yes: Incontinence Musculoskeletal: Yes: Muscle Weakness Extremities: Yes: WNL Edema: No Peripheral Pulses WNL: Yes Neurological: Yes: Lethargy Labs: CBC, BMP 08/31/20 08:00 08/30/20 11:41 Discharge Summary Problems reviewed: Yes Reason For Visit: ANEMIA Current Active Problems Anemia (Acute) Hospice care (Acute) Condition: Poor - Instructions Disposition: [facility] - Home Medications Comprehensive Discharge Medication List: Ambulatory Orders Aspirin [ASA -] 81 mg PO DAILY 04/25/20 Atorvastatin Calcium 40 mg PO DAILY 04/25/20 Cholecalciferol (Vitamin D3) [Vitamin D3] 1,000 unit PO DAILY 04/25/20 Potassium Chloride 10 meq PO DAILY 04/25/20 Albuterol Sulfate Inhaler - [Ventolin HFA Inhaler -] 1 - 2 inh PO Q4H #1 inhaler 05/04/20 Budesonide/Formeterol Fumarate [SYMBICORT 160/4.5mcg -] 1 inh PO BID #1 cannister 05/04/20 Albuterol 0.083% Nebulizer Nandini [Ventolin 0.083% Nebulizer Soln -] 1 neb NEB Q4H 07/06/20 Ferrous Sulfate [Feosol] 325 mg PO DAILY 07/06/20 Clopidogrel Bisulfate [Plavix -] 75 mg PO DAILY tablet 07/12/20 Ascorbic Acid [Vitamin C] 500 mg PO DAILY 08/30/20 Furosemide [Lasix] 10 mg PO DAILY 08/30/20 Lisinopril [Prinivil] 20 mg PO DAILY 08/30/20 Prescription Drug Monitoring Program (I-STOP) results: I-STOP reviewed and no issues identified
--- NOTE | 2020-09-01 13:27 | EKG ---
Test Reason : Blood Pressure : / mmHG Vent. Rate : 164 BPM Atrial Rate : 163 BPM P-R Int : 000 ms QRS Dur : 090 ms QT Int : 280 ms P-R-T Axes : 000 -51 102 degrees QTc Int : 462 ms POOR DATA QUALITY, INTERPRETATION MAY BE ADVERSELY AFFECTED SUPRAVENTRICULAR TACHYCARDIA LEFT ANTERIOR FASCICULAR BLOCK MINIMAL VOLTAGE CRITERIA FOR LVH, MAY BE NORMAL VARIANT MARKED ST ABNORMALITY, POSSIBLE LATERAL SUBENDOCARDIAL INJURY ABNORMAL ECG WHEN COMPARED WITH ECG OF 30-AUG-2020 11:46, SIGNIFICANT CHANGES HAVE OCCURRED Confirmed by MARIO BENAVIDES MD ([id number]) on 09/01/2020 1:27:07 PM Referred By: Confirmed By:MARIO BENAVIDES MD
== END 2020-09-01 18:28 | DRG 812 ==
LOC: JER 11:07 → JERBED 13:36 → J6S 08-31 00:13
PROVIDERS: ADMIT Family Medicine; ATTEND Family Medicine
PROC: 30233N1 Transfusion of Nonautologous Red Blood Cells into Peripheral Vein, Percutaneous Approach (ICD-10-PCS; principal; 2020-08-30)
DX: D64.9 Anemia, unspecified (principal); R64 Cachexia; Z68.1 Body mass index [BMI] 19.9 or less, adult; I25.10 Atherosclerotic heart disease of native coronary artery without angina pectoris; I25.2 Old myocardial infarction; J44.9 Chronic obstructive pulmonary disease, unspecified; E78.5 Hyperlipidemia, unspecified; I10 Essential (primary) hypertension; Z51.5 Encounter for palliative care
CPT/HCPCS: 36415; 36430; 71045-TC-FY; 80053; 82272; 83540; 83550; 85025; 85027; 86850; 86900; 86901; 86922; 93005; 93010; 99285-25; C9803; P9058; U0003